=== PATIENT | female | born 1945 | race Caucasian/White ===

== ENCOUNTER 2018-07-08 07:30 | Day surgery (SDC) | payer OTHER ==
[2018-07-08] MEDS ORDERED: CYCLOPENTOLATE 1% OPTH 2 ML ONE (08:08)
[2018-07-08] MEDS ORDERED: NA CHLORIDE 0.9% 500 ML ONE (08:08)
[2018-07-08] MEDS: CYCLOPENTOLATE 1% OPTH 2 ML ONE ×2 (08:35→08:40)
[2018-07-08] MEDS: PHENYLEPHRINE 10% OPTH 5ML ONE ×2 (08:35→08:40)
[2018-07-08] MEDS: LIDOCAINE 2% MPF 5 ML VIAL ONE ×2 (08:55→09:09)
[2018-07-08] MEDS: TETRACAINE HCL 0.5% 2ML OPTH ONE ×2 (08:55→09:07)
[2018-07-08] MEDS: BUPIVACAINE 0.25% PF 10 ML VIAL ONE ×2 (08:56→09:09)
[2018-07-08] MEDS ORDERED: PROPOFOL 200 MG/20 ML VIAL IV ONE (08:56)
[2018-07-08] MEDS ORDERED: LIDOCAINE 2% MPF 5 ML VIAL ONE (08:56)
[2018-07-08] MEDS ORDERED: NS 0.9% VIAL 10 ML ONE (09:15)
[2018-07-08] MEDS ORDERED: EPINEPHRINE/PF 1 MG/ML AMP ONE (09:16)
[2018-07-08] MEDS ORDERED: BALANCED SALT IRRIG PLAIN 500 ML BTL IRR ONE (09:16)
[2018-07-08] MEDS ORDERED: DUOVISC 1 KIT OPTH ONE (09:16)
[2018-07-08] MEDS ORDERED: MOXIFLOXACIN HCL 10 DROPS/ML **OR USE OPTH ONE (09:16)
--- NOTE | 2018-07-08 09:53 | P.BOP ---
Preoperative diagnosis: Nuclear sclerotic cataract and regular astigmatism OD Postoperative diagnosis: Same Primary procedure: Phacoemulsification with IOL OD Estimated blood loss: None Anesthesia: Local (Subtenon's infusion with anesthesia for cataract surgery) Complications: None Implants: SA6AT3 +22.5 @ 171 degrees Transferred to: Other (Day surgery) Condition: Good
--- NOTE | 2018-07-08 20:41 | OP ---
Date of Procedure: 07/08/2018 Surgeon: Maddy Lima MD Anesthesiologist: Tasia Horta CRNA and Ethan Gilbert MD. Preoperative Diagnoses: Nuclear sclerotic cataract and regular astigmatism, right eye. Operation Performed: Phacoemulsification with Toric intraocular lens implant, right eye. Anesthesia: Per cataract surgery. Complications: None. Description Of Procedure: In day surgery, the patient was prepped with Betadine and draped. A conju nctival incision was made in the inferior nasal quadrant with Amber scissors. A sub-Tenon block c onsisting of a 1:1 mixture of 2% Xylocaine and 0.25% bupivacaine was placed through the conjunctival incision with a blunt cannula. A Honan balloon was placed over the eye and the patient was transferr ed to the operating room. In the operating room the patient was prepped and draped in the usual sterile fashion for ophthalmic surgery. A lid speculum was placed in the right eye. Two paracentesis sites were made superiorly an d inferiorly in the limbal cornea. Viscoat was placed in the anterior chamber and a crescent blade w as used to make a corneal groove and tunnel, and a keratome was used to enter the anterior chamber. Provisc was placed in the anterior chamber and a 360 degree capsulotomy was performed with a cystitom e. The lens was hydrodissected with BSS and rotated freely. The lens was removed with a stop and ch op technique. 13.97 Phaco CDE was used to remove the lens. Residual cortex was removed with the irr igation and aspiration. Provisc was placed in the capsular bag. A SA6AT3 +22.5 at 171 degrees lens was placed in the capsular bag without complications. Irrigation and aspiration was used to remove r esidual viscoelastic. The paracentesis sites were hydrated with BSS. The wound and paracentesis sit es were inspected and found to be watertight. Vigamox 0.07 cc was placed intracamerally at the end o f the procedure. The eye was irrigated with balanced salt solution. The eye was patched with a soft cotton patch and Franz metal shield. The patient was returned to day surgery in good condition. Comments: Discharge Instructions: Ms. Gracia is discharged to home in good condition and is to follow up with Dr. Lima in the morning. CORNEL/MODL Voice ID: [id number] Report ID: [id number]
== END 2018-07-08 10:31 | disposition home or self-care (01) ==
LOC: OR 07:30
PROVIDERS: ATTEND Ophthalmology Retina Specialist
PROC: 08RJ3JZ Replacement of Right Lens with Synthetic Substitute, Percutaneous Approach (ICD-10-PCS; principal; 2018-07-08 09:00)
DX: H25.11 Age-related nuclear cataract, right eye (principal); H52.221 Regular astigmatism, right eye; M19.90 Unspecified osteoarthritis, unspecified site; Z88.0 Allergy status to penicillin; Z88.2 Allergy status to sulfonamides; Z83.511 Family history of glaucoma
CPT/HCPCS: 66984; J2704; J0171; V2630; V2787

== ENCOUNTER 2018-10-21 09:55 | Day surgery (SDC) | payer OTHER ==
[2018-10-21] MEDS: CYCLOPENTOLATE 1% OPTH 2 ML ONE ×3 (10:34→10:46)
[2018-10-21] MEDS ORDERED: BALANCED SALT IRRIG PLAIN 500 ML BTL IRR ONE (10:34)
[2018-10-21] MEDS: PHENYLEPHRINE 10% OPTH 5ML ONE ×3 (10:34→10:46)
[2018-10-21] MEDS ORDERED: EPINEPHRINE/PF 1 MG/ML AMP ONE (10:34)
[2018-10-21] MEDS ORDERED: NS 0.9% VIAL 10 ML ONE (10:34)
[2018-10-21] MEDS ORDERED: DUOVISC 1 KIT OPTH ONE (10:34)
[2018-10-21] MEDS ORDERED: MOXIFLOXACIN HCL 10 DROPS/ML **OR USE OPTH ONE (10:35)
[2018-10-21] MEDS ORDERED: LIDOCAINE 1% MPF 2 ML AMPULE ONE (10:35)
[2018-10-21] MEDS ORDERED: LIDOCAINE 2% MPF 5 ML VIAL ONE (10:41)
[2018-10-21] MEDS ORDERED: TETRACAINE HCL 0.5% 4ML OPTH ONE (10:42)
[2018-10-21] MEDS ORDERED: BUPIVACAINE 0.25% PF 10 ML VIAL ONE (10:42)
[2018-10-21] MEDS ORDERED: LIDOCAINE HCL/PF 3.5% OPTH GEL ONE (10:42)
[2018-10-21] MEDS ORDERED: NA CHLORIDE 0.9% 500 ML ONE (10:42)
[2018-10-21] MEDS ORDERED: MIDAZOLAM HCL 2 MG/2 ML INJ ONE ×2 (11:07→11:48)
--- NOTE | 2018-10-21 12:04 | P.BOP ---
Preoperative diagnosis: Nuclear sclerotic cataract OS Postoperative diagnosis: Same Primary procedure: Phacoemulsification with IOL OS Estimated blood loss: None Anesthesia: Local (Topical with anesthesia for cataract surgery) Complications: None Implants: SA60WF +23.5 Transferred to: Other (Day surgery) Condition: Good
--- NOTE | 2018-10-21 22:25 | OP ---
Date of Procedure: 10/21/2018 Surgeon: Maddy Lima MD Anesthesiologist: Tasia Horta CRNA; Brunilda Lu CRNA; and Jim De Leon MD. Preoperative Diagnosis: Nuclear sclerotic cataract, left eye. Operation Performed: Phacoemulsification with intraocular lens implant, left eye. Anesthesia: Per cataract surgery. Complications: None. Description Of Procedure: In the operating room the patient was prepped and draped in the usual ster ile fashion for ophthalmic surgery. A lid speculum was placed in the left eye. Two paracentesis sit es were made superiorly and inferiorly in the limbal cornea. Viscoat was placed in the anterior lauryn babak and a crescent blade was used to make a corneal groove and tunnel, and a keratome was used to ent er the anterior chamber. Provisc was placed in the anterior chamber and a 360 degree capsulotomy was performed with a cystitome. The lens was hydrodissected with BSS and rotated freely. The lens was removed with a stop and chop technique. 20.54 phaco CDE was used to remove the lens. Residual luis alberto x was removed with the irrigation and aspiration. Provisc was placed in the capsular bag. A SA60WF +23.5 lens was placed in the capsular bag without complications. Irrigation and aspiration were used to remove residual viscoelastic. The paracentesis sites were hydrated with BSS. The wound and para centesis sites were inspected and found to be watertight. Vigamox 0.07 cc was placed intracamerally at the end of the procedure. The eye was irrigated with balanced salt solution. The eye was patched with a soft cotton patch and Franz metal shield. The patient was returned to day surgery in good condition. Comments: Akten was placed in the eye in Day Surgery and irrigated out of the eye with BSS in the OR . Preservative-free 1% lidocaine was placed in the anterior chamber prior to Viscoat. Discharge Instructions: Ms. Gracia is discharged to home in good condition. She is to follow up [facility] Dr. Lima in the morning. CORNEL/PIERCE Voice ID: [id number] Report ID: [id number]
== END 2018-10-21 12:33 | disposition home or self-care (01) ==
LOC: OR 09:55
PROVIDERS: ATTEND Ophthalmology Retina Specialist
PROC: 08RK3JZ Replacement of Left Lens with Synthetic Substitute, Percutaneous Approach (ICD-10-PCS; principal; 2018-10-21 10:30)
DX: H25.12 Age-related nuclear cataract, left eye (principal); I10 Essential (primary) hypertension; M19.90 Unspecified osteoarthritis, unspecified site; Z79.899 Other long term (current) drug therapy
CPT/HCPCS: 66984; J0171; J2250 ×2; J2001

== ENCOUNTER 2020-06-06 11:22 | Emergency (ER) | payer OTHER ==
--- OUTSIDE RECORDS SUMMARY | 2020-06-06 11:25 | XMS REPORT | Continuity of Care Document ---
:1945 Author Organization [facility] t Address [address] [place] [address] Care Team Providers Name Role Phone Unavailable Unavailable Unavailable Payers Payer Name Policy Type Policy Number Effective Date Expiration Date S ource Problems This patient has no known problems. Allergies, Adverse Reactions, Alerts Allergy Allergy Status Severity Reaction(s) Onset Inactive Treating Comm ents Source Name Type Date Date Clinician [place] DA Active U 2010- [facility] No Known DA Active U 2005-0 [facility] Contrast 10-12 [place] [facility] 00:[facility] No Known DA Active U 2005-0 [facility] Food 10-12 [place] [facility] 00:[facility]: [facility] No Known DA Active U 2005-0 [facility] Other 10-12 [place] [facility] 00:[facility]: [facility] PENICILL DA Active U 2005-0 [facility] IN 10-12 [place] 00:[facility] SULFA DA Active U 2005-0 [facility] DRUGS 10-12 [place] 00:00: [facility] Medications This patient has no known medications. Procedures This patient has no known procedures. Results Test Description Test Time Test Comments Results Result [facility] e Comments - MRI L-SPINE W/O 2019-03-20 Patient Name: CONT 06:53:00 MADINA MERIDA Unit No: [id number] EXAMS: CPT CODE: [id number] MRI L-SPINE W/O CONT 92511 TECHNIQUE: Multiplanar, multisequence MRI examination performed of the lumbar spine without intravenous contrast material. COMPARISON: None available. FINDINGS: Five lumbar type vertebra are assumed. Alignment: No significant listhesis. Bone Lesion: Degenerative marrow signal is noted at the L2-L3 and L3-L4 levels. Fracture: None present. Paraspinal Soft Tissues: Unremarkable. Conus Medullaris: Termination at L1-L2 level. Morphology is normal. L1/2: Disc desiccation without significant bulge or herniation. No foraminal or central canal stenosis. L2/3: Advanced disc degeneration with endplate marrow changes and left asymmetric disc bulge. Facet hypertrophy and ligamentum flavum thickening contribute to moderate central canal stenosis. Mild bilateral foraminal narrowing. L3/4: Marked disc degeneration with endplate marrow changes and broad disc bulge. Moderate bilateral facet hypertrophy. There is moderate central canal stenosis as well as mild bilateral foraminal narrowing. L4/5: Disc degeneration and diffuse bulge. Facet hypertrophy and ligamentum flavum thickening contribute to mild to moderate central canal stenosis. Mild bilateral foraminal stenosis. L5/S1: Large left asymmetric disc bulge is noted as well as moderate facet hypertrophy and ligamentum flavum thickening. There is mild central canal stenosis as well as moderate to severe left, moderate right foraminal stenosis. IMPRESSION: Advanced multilevel lumbar spondylosis with moderate central canal stenosis at L2-L3 and L3-L4. at 0653 Reported and signed by: Corey Nair M.D. CC: Mariya Santos M.D. Technologist: Tien Arora(R) Transcribed D/ ([id number]) [facility] [address] [facility] PHYS: Alfonzo Villalobos MD : 1945 AGE: 74 SEX: F [place], [place] [address] LOC: Y.MRI PHONE #: [phone] EXAM DATE: 03/19/2019 STATUS: DEP CLI FAX #: [phone] RAD #: D/C DT PAGE 1 Signed Report Patient Name: MADINA MERIDA Unit No: [id number] EXAMS: CPT CODE: [id number] MRI L-SPINE W/O CONT 31363 <Continued> Orig Print D/T: S: 03/20/2019 ([id number]) [place] [facility] NAME: MADINA MERIDA [address] [facility] PHYS: Alfonzo Villalobos MD : 1945 AGE: 74 SEX: F [place], [place] [address] LOC: Y.MRI PHONE #: [phone] EXAM DATE: 03/19/2019 STATUS: DEP CLI FAX #: [phone] RAD #: D/C DT PAGE 2 Signed Report
[2020-06-06 12:22] LABS: Absolute Lymphocytes (CBC) 1.9 K/uL (0.7-4.9); Basophils % 1.1 % (0-1.3); Hematocrit 38.5 % (36.0-45.0); Lymphocytes % 17.6 % (15.3-44.8); MPV 8.8 fL (7.6-11.3); RBC Red Blood Cell Count 4.08 M/uL (3.86-4.86)
[2020-06-06] MEDS ORDERED: ADENOSINE 6 MG/ 2ML VIAL IV PRN (12:22)
[2020-06-06 12:35] LABS: BUN Blood Urea Nitrogen 20 mg/dL (7-18); Bicarbonate 23 mmol/L (21-32); Glucose Level 141 mg/dL (74-106); Magnesium 2.1 mg/dL (1.8-2.4); Sodium Level 135 mmol/L (136-145)
[2020-06-06] MEDS ORDERED: NA CHLORIDE 0.9% 1,000 ML ONE (12:39)
--- NOTE | 2020-06-06 13:59 | EDPHYS ---
Physician Documentation [facility] Name: Suzie Gracia Age: 75 yrs Sex: Female : 1945 Arrival Date: 06/06/2020 Time: 11:23 Bed 20 Private MD: ED Physician Jensen Barragan HPI: 06/06 13:00 This 75 yrs old Female presents to ER via Ambulatory with complaints of svt. rn 13:00 The patient presents with a history of heart racing. Context: The symptoms occur at rn rest. Onset: The symptoms/episode began/occurred last night. Duration: The patient or guardian reports a single episode. Modifying factors: The symptoms are aggravated by nothing. The symptoms are alleviated by nothing. Severity of symptoms: At their worst the symptoms were moderate in the emergency department the symptoms are unchanged. The patient has experienced similar episodes in the past. Reports multiple episodes of SVT, has required conversion with adenosine once before, other times able to convert or slow down with metoprolol, took multiple doses of metoprolol yesterday and today without help, then BP started to drop, came in to try and reset. No chest pain/sob/syncope. . Historical: - Allergies: 11:42 Penicillins; ca1 11:42 Sulfa (Sulfonamide Antibiotics); ca1 - Home Meds: 11:42 metoprolol tartrate 50 mg Oral tab [Active]; metoprolol succinate 100 mg oral Tb24 1 ca1 tab once daily [Active]; - PMHx: 11:42 SVT; Hypertension; ca1 - PSHx: 11:42 ; ca1 - Immunization history:: Pneumococcal vaccine is up to date, Flu vaccine is up to date. - Social history:: Smoking status: Patient denies any tobacco usage or history of. - Family history:: not pertinent. - Hospitalizations: : No recent hospitalization is reported. ROS: 13:00 Constitutional: Negative for fever, chills, and weight loss, Eyes: Negative for injury, rn pain, redness, and discharge, Neck: Negative for injury, pain, and swelling, Cardiovascular: Negative for chest pain, and edema, Respiratory: Negative for shortness of breath, cough, wheezing, and pleuritic chest pain, Abdomen/GI: Negative for abdominal pain, nausea, vomiting, diarrhea, and constipation, Back: Negative for injury and pain, MS/Extremity: Negative for injury and deformity, Skin: Negative for injury, rash, and discoloration, Neuro: Negative for headache, weakness, numbness, tingling, and seizure. Exam: 13:00 Constitutional: This is a well developed, well nourished patient who is awake, alert, rn and in no acute distress. Head/Face: Normocephalic, atraumatic. Cardiovascular: Tachycardic, regular Respiratory: No increased work of breathing, no retractions or nasal flaring. Abdomen/GI: soft, non-tender Skin: Warm, dry MS/ Extremity: Pulses equal, no cyanosis. Neurovascular intact. Full, normal range of motion. Equal circumference. Neuro: Awake and alert, GCS 15 Vital Signs: 11:38 BP 114 / 88; Pulse 130; Resp 16 S; Temp 98(TE); Pulse Ox 100% on R/A; Weight 72.57 kg ca1 (R); Height 5 ft. 6 in. (167.64 cm) (R); Pain 0/10; 13:15 BP 127 / 56; Pulse 60; Resp 14 S; Pulse Ox 97% on R/A; jd3 14:12 BP 117 / 62; Pulse 57; Resp 20 S; Pulse Ox 99% on R/A; jd3 11:38 Body Mass Index 25.82 (72.57 kg, 167.64 cm) ca1 MDM: 11:50 Patient medically screened. rn 12:54 ED course: Adenosine 6mg given for SVT, converted back to sinus rhythm, will load with rn magnesium and continue to monitor. . 13:55 Differential diagnosis: arrythmia, dehydration. Data reviewed: vital signs, nurses rn notes, lab test result(s), EKG, and as a result, I will discharge patient. Counseling: I had a detailed discussion with the patient and/or guardian regarding: the historical points, exam findings, and any diagnostic results supporting the discharge/admit diagnosis, lab results, the need for outpatient follow up, to return to the emergency department if symptoms worsen or persist or if there are any questions or concerns that arise at home. Response to treatment: the patient's symptoms have resolved after treatment, the patient's condition has returned to base line, the patient is now symptom free, and as a result, I will discharge patient. Special discussion: I discussed with the patient/guardian in detail that at this point there is no indication for admission to the hospital. It is understood, however, that if the symptoms persist or worsen the patient needs to return immediately for re-evaluation. ED course: Remains in sinus rhythm, loaded with magnesium, will dc home with recommended f/u with cardiology/EP. . 06/06 12:02 Order name: CBC with Diff rn 06/06 12:02 Order name: Basic Metabolic Panel rn 06/06 12:02 Order name: Magnesium rn 06/06 12:02 Order name: CBC with Automated Diff; Complete Time: 12:49 EDMS 06/06 12:02 Order name: Basic Metabolic Panel; Complete Time: 12:49 EDMS 06/06 12:03 Order name: Magnesium; Complete Time: 12:49 EDNH 06/06 11:43 Order name: EKG; Complete Time: 11:44 ca1 06/06 11:43 Order name: EKG - Nurse/Tech; Complete Time: 11:43 ca1 06/06 12:02 Order name: IV Start; Complete Time: 12:19 rn Administered Medications: 12:46 Drug: NS 0.9% 1000 ml Route: IV; Rate: 1 bolus; Site: right antecubital; jd3 13:40 Follow up: Response: No adverse reaction; IV Status: Order to discontinue infusion; IV jd3 Intake: 250ml 12:47 Drug: Adenosine 6 mg Route: IVP; Site: right antecubital; jd3 13:00 Follow up: Response: No adverse reaction; Marked relief of symptoms; Cardiac rhythm jd3 changed 13:37 Drug: Magnesium Sulfate 1 grams Route: IVPB; Infused Over: 1 hrs; Site: left forearm; jd3 14:35 Follow up: Response: No adverse reaction; IV Status: Completed infusion jd3 Disposition: 06/06/20 13:58 Discharged to Home. Impression: Supraventricular tachycardia. - Condition is Stable. - Discharge Instructions: Paroxysmal Supraventricular Tachycardia. - Medication Reconciliation Form, Thank You Letter, Antibiotic Education, Prescription Opioid Use form. - Follow up: Private Physician; When: As needed; Reason: Recheck today's complaints, Re-evaluation by your physician. - Problem is an acute exacerbation. - Symptoms have improved. Signatures: Dispatcher [employer] EDJensen Padilla MD MD rn Davies, Jonathon, RN RN jd3 Zeny Cunha RN RN ca1 Corrections: (The following items were deleted from the chart) 14:46 13:58 06/06/2020 13:58 Discharged to Home. Impression: Supraventricular tachycardia. jd3 Condition is Stable. Forms are Medication Reconciliation Form, Thank You Letter, Antibiotic Education, Prescription Opioid Use. Follow up: Private Physician; When: As needed; Reason: Recheck today's complaints, Re-evaluation by your physician. Problem is an acute exacerbation. Symptoms have improved. rn
--- NOTE | 2020-06-06 13:59 | ER ---
Nurse's Notes [facility] Name: Suzie Gracia Age: 75 yrs Sex: Female : 1945 Arrival Date: 06/06/2020 Time: 11:23 Bed 20 Private MD: Diagnosis: Supraventricular tachycardia Presentation: 06/06 11:38 Chief complaint: Patient states: Increased HR since last night at 1999, took meds for ca1 it, no relief.. Last episode was 04/07/2020, lasted only 2 - 3 hours and has medication for SVT. This time it just lasts until now. Reports feeling tired. Coronavirus screen: Client denies travel out of the [place] in the last 14 days. At this time, the client does not indicate any symptoms associated with coronavirus-19. Ebola Screen: Patient negative for fever greater than or equal to 101.5 degrees Fahrenheit, and additional compatible Ebola Virus Disease symptoms Patient denies exposure to infectious person. Patient denies travel to an Ebola-affected area in the 21 days before illness onset. No symptoms or risks identified at this time. Initial Sepsis Screen: Does the patient meet any 2 criteria? No. Patient's initial sepsis screen is negative. Does the patient have a suspected source of infection? No. Patient's initial sepsis screen is negative. Risk Assessment: Do you want to hurt yourself or someone else? Patient reports no desire to harm self or others. Onset of symptoms was June 05, 2020 at 20:00. 11:38 Method Of Arrival: Ambulatory ca1 11:38 Acuity: DWIGHT 2 ca1 Historical: - Allergies: 11:42 Penicillins; ca1 11:42 Sulfa (Sulfonamide Antibiotics); ca1 - Home Meds: 11:42 metoprolol tartrate 50 mg Oral tab [Active]; metoprolol succinate 100 mg oral Tb24 1 ca1 tab once daily [Active]; - PMHx: 11:42 SVT; Hypertension; ca1 - PSHx: 11:42 ; ca1 - Immunization history:: Pneumococcal vaccine is up to date, Flu vaccine is up to date. - Social history:: Smoking status: Patient denies any tobacco usage or history of. - Family history:: not pertinent. - Hospitalizations: : No recent hospitalization is reported. Screenin:28 Abuse screen: Denies threats or abuse. Nutritional screening: No deficits noted. jd3 Tuberculosis screening: No symptoms or risk factors identified. Fall Risk Ambulatory Aid- None/Bed Rest/Nurse Assist (0 pts). Gait- Normal/Bed Rest/Wheelchair (0 pts) Mental Status- Oriented to own ability (0 pts). Total Weaver Fall Scale indicates No Risk (0-24 pts). Assessment: 12:25 General: Appears comfortable, Behavior is calm, cooperative, appropriate for age, jd3 anxious. Pain: Complains of pain in chest Quality of pain is described as pressure. Neuro: Level of Consciousness is awake, alert, obeys commands, Oriented to person, place, time, situation. 12:25 Cardiovascular: Capillary refill < 3 seconds Patient's skin is warm and dry. Rhythm is jd3 irregular. Respiratory: Airway is patent Respiratory effort is even, unlabored, Respiratory pattern is regular, symmetrical, Denies cough, shortness of breath. GI: No signs and/or symptoms were reported involving the gastrointestinal system. : No signs and/or symptoms were reported regarding the genitourinary system. EENT: No signs and/or symptoms were reported regarding the EENT system. Derm: Skin is intact, Skin is dry, Skin is normal, Skin temperature is warm. Musculoskeletal: Circulation, motion, and sensation intact. Range of motion: intact in all extremities. 13:15 Reassessment: Patient appears in no apparent distress at this time. Patient and/or jd3 family updated on plan of care and expected duration. Pain level reassessed. Patient is alert, oriented x 3, equal unlabored respirations, skin warm/dry/pink. Patient states feeling better. 14:11 Reassessment: Patient appears in no apparent distress at this time. Patient and/or jd3 family updated on plan of care and expected duration. Pain level reassessed. Patient is alert, oriented x 3, equal unlabored respirations, skin warm/dry/pink. Patient states feeling better. Vital Signs: 11:38 BP 114 / 88; Pulse 130; Resp 16 S; Temp 98(TE); Pulse Ox 100% on R/A; Weight 72.57 kg ca1 (R); Height 5 ft. 6 in. (167.64 cm) (R); Pain 0/10; 13:15 BP 127 / 56; Pulse 60; Resp 14 S; Pulse Ox 97% on R/A; jd3 14:12 BP 117 / 62; Pulse 57; Resp 20 S; Pulse Ox 99% on R/A; jd3 11:38 Body Mass Index 25.82 (72.57 kg, 167.64 cm) ca1 ED Course: 11:23 Patient arrived in ED. as 11:40 Triage completed. ca1 11:42 Arm band placed on right wrist. ca1 11:50 Jensen Barragan MD is Attending Physician. rn 12:05 Anand Lombardo RN is Primary Nurse. jd3 12:20 Inserted saline lock: 20 gauge in left forearm, using aseptic technique. Blood jd3 collected. 12:30 Inserted saline lock: 20 gauge in right antecubital area, using aseptic technique. jd3 13:51 Magnesium Sent. mh5 13:51 Basic Metabolic Panel Sent. mh5 13:52 CBC with Diff Sent. mh5 14:28 Patient has correct armband on for positive identification. Placed in gown. Bed in low jd3 position. Call light in reach. Side rails up X2. utility engineer on. Pulse ox on. NIBP on. 14:41 No provider procedures requiring assistance completed. IV discontinued, intact, jd3 bleeding controlled, No redness/swelling at site. Pressure dressing applied. Administered Medications: 12:46 Drug: NS 0.9% 1000 ml Route: IV; Rate: 1 bolus; Site: right antecubital; jd3 13:40 Follow up: Response: No adverse reaction; IV Status: Order to discontinue infusion; IV jd3 Intake: 250ml 12:47 Drug: Adenosine 6 mg Route: IVP; Site: right antecubital; jd3 13:00 Follow up: Response: No adverse reaction; Marked relief of symptoms; Cardiac rhythm jd3 changed 13:37 Drug: Magnesium Sulfate 1 grams Route: IVPB; Infused Over: 1 hrs; Site: left forearm; jd3 14:35 Follow up: Response: No adverse reaction; IV Status: Completed infusion jd3 Intake: 13:40 IV: 250ml; Total: 250ml. jd3 Outcome: 13:58 Discharge ordered by . rn 14:41 Discharged to home ambulatory, with family. jd3 14:41 Condition: stable 14:41 Discharge instructions given to patient, Instructed on discharge instructions, follow up and referral plans. Demonstrated understanding of instructions, follow-up care. 14:46 Patient left the ED. jd3 Signatures: Marlin Hackett Roman, MD MD rn Martinez, [facility] Anand Lombardo RN RN jd3 Zeny Cunha RN RN ca1
[2020-06-06] MEDS ORDERED: MAGNESIUM SULFATE 1 gm IVPB 1 GM/100 ML BAG IV ONE (14:00)
[2020-06-06 14:51] VITALS: TEMP 98
[2020-06-06 14:54] VITALS: BP 117/62; O2SAT 99
== END 2020-06-06 14:46 | disposition home or self-care (01) ==
LOC: ER 11:22
DX: I47.1 Supraventricular tachycardia (principal); I10 Essential (primary) hypertension; Z88.0 Allergy status to penicillin; Z88.2 Allergy status to sulfonamides
CPT/HCPCS: 96365; 96361; 93005 ×3; 85025; 80048; 36415; 83735; 96375; 99285; J0153; J3475; J7030

== ENCOUNTER 2020-07-21 20:08 | Emergency (ER) | payer OTHER ==
--- NOTE | 2020-07-21 20:53 | RAD REPORT ---
EXAM DESCRIPTION: RAD - Chest Single View - 07/21/2020 8:38 pm CLINICAL HISTORY: ta chycardia, hypertension COMPARISON: May 11, 2020 TECHNIQUE: AP portable chest image was obtained 07/21/2020 8:38 pm . FINDINGS: No focal mass or consolidation. Chronic interstitial opacification is present not substant ially different when adjusting for technique differences. Severity of chronic disease could mask regina y edema or infiltrate. Heart and vasculature are normal. No measurable pleural effusion and no pneumothorax. No acute bony abnormality seen. No acute aortic findings suspected. IMPRESSION: Chronic interstitial lung disease not substantially different from comparison. Severity chronic disease could mask early edema or infiltrate.
[2020-07-21] MEDS ORDERED: METOPROLOL TARTRATE 5 MG/5 ML INJ IV ONE (20:55)
[2020-07-21 21:00] LABS: Absolute Lymphocytes (CBC) 1.9 K/uL (0.7-4.9); Basophils % 0.5 % (0-1.3); Hematocrit 38.6 % (36.0-45.0); Lymphocytes % 17.8 % (15.3-44.8); RBC Red Blood Cell Count 4.18 M/uL (3.86-4.86)
[2020-07-21 21:01] LABS: Protime INR 1.07
[2020-07-21] MEDS ORDERED: NA CHLORIDE 0.9% 1,000 ML ONE ×2 (21:02→22:03)
[2020-07-21 21:14] LABS: ALT/SGPT 26 U/L (12-78); AST/SGOT 19 U/L (15-37); Albumin 3.9 g/dL (3.4-5.0); Alkaline Phosphatase 82 U/L (45-117); BUN Blood Urea Nitrogen 17 mg/dL (7-18); Bicarbonate 23 mmol/L (21-32); Bilirubin Direct 0.2 mg/dL (0-0.2); Bilirubin Total 0.5 mg/dL (0.2-1.0); Glucose Level 132 mg/dL (74-106); Magnesium 2.2 mg/dL (1.8-2.4); NT PRO-BNP 480 pg/mL (<450); Potassium 3.9 mmol/L (3.5-5.1); Protein, Total 7.4 g/dL (6.4-8.2); Sodium Level 137 mmol/L (136-145); Troponin (Emerg Dept Use Only) < 0.02 ng/mL (0.0-0.045)
[2020-07-21] MEDS ORDERED: ADENOSINE 6 MG/ 2ML VIAL IV ONE (22:02)
--- NOTE | 2020-07-21 23:04 | EDPHYS ---
Physician Documentation [facility] Name: Suzie Gracia Age: 75 yrs Sex: Female : 1945 Arrival Date: 07/21/2020 Time: 20:12 Bed 14 Private MD: ED Physician Juan Castillo HPI: 07/21 20:24 This 75 yrs old Female presents to ER via Ambulatory with complaints of jmm ELEVATED HEART RATE. 20:24 The patient presents with a history of heart racing. Onset: The symptoms/episode jmm began/occurred today. Duration: The patient or guardian reports a single episode, that is still ongoing. Modifying factors: The symptoms are aggravated by nothing. The symptoms are alleviated by nothing. Associated signs and symptoms: Pertinent negatives: chest pain, SOB. This is a 75 year old female with a history of htn, SVT that presents to the ED with complaints of rapid heart beath. patient took 100 mg of metoprolol er this morning and 150 mg this evening. Denies chest pain or shortness of breath. . Historical: - Allergies: 20:31 PENICILLINS; ca1 20:31 Sulfa (Sulfonamide Antibiotics); ca1 - Home Meds: 20:31 metoprolol succinate 100 mg Oral Tb24 1 tab once daily [Active]; metoprolol tartrate 50 ca1 mg Oral tab [Active]; - PMHx: 20:31 Hypertension; SVT; ca1 - PSHx: 20:31 ; ca1 - Immunization history:: Client reports receiving the 2nd dose of the Covid vaccine, Client reports receiving the 1st dose of the Covid vaccine, Pneumococcal vaccine is up to date, Flu vaccine is up to date. - Social history:: Smoking status: Patient denies any tobacco usage or history of. ROS: 20:24 Constitutional: Negative for fever, chills, and weight loss. jmm 20:24 Respiratory: Negative for shortness of breath, cough, wheezing, and pleuritic chest pain, Abdomen/GI: Negative for abdominal pain, nausea, vomiting, diarrhea, and constipation, Neuro: Negative for headache, weakness, numbness, tingling, and seizure. 20:24 Cardiovascular: Positive for palpitations. 20:24 All other systems are negative. Exam: 20:24 Constitutional: This is a well developed, well nourished patient who is awake, alert, jmm and in no acute distress. Head/Face: atraumatic. Eyes: EOMI, no conjunctival erythema appreciated ENT: Moist Mucus Membranes Neck: Trachea midline, Supple Chest/axilla: Normal chest wall appearance and motion. 20:24 Respiratory: Normal respirations, no respiratory distress appreciated Abdomen/GI: Non distended, soft Back: Normal ROM Skin: General appearance color normal MS/ Extremity: Moves all extremities, no obvious deformities appreciated, no edema noted to the lower extremities Neuro: Awake and alert, normal gait Psych: Behavior is normal, Mood is normal, Patient is cooperative and pleasant 20:24 Cardiovascular: Rate: tachycardic, Rhythm: regular. Vital Signs: 20:13 BP 122 / 84; Pulse 133; Resp 18 S; Temp 97.6(TE); Pulse Ox 96% on R/A; Weight 72.57 kg ca1 (R); Height 5 ft. 6 in. (167.64 cm) (R); Pain 0/10; 23:10 BP 123 / 65; Pulse 58; Resp 18; Temp 97.8; Pulse Ox 98% ; ea 20:13 Body Mass Index 25.82 (72.57 kg, 167.64 cm) ca1 MDM: 20:31 Patient medically screened. [facility] 23:01 Data reviewed: vital signs, nurses notes. Counseling: I had a detailed discussion with [facility] the patient and/or guardian regarding: the historical points, exam findings, and any diagnostic results supporting the discharge/admit diagnosis, lab results, radiology results, the need for further work-up and treatment in the hospital. Refusal of service: The patient/guardian displays adequate decision making capability and despite a detailed discussion of alternatives, benefits, risks, and consequences refuses: Admission to the hospital for further work-up and treatment. ED course: I discussed the patient with Dr. Hearn whom evaluated the EKG. Patient was administered adenosine with cardioversion. Patient has remained at a normal rate since initial administration. Due to the 3rd need for cardioversion I recommended observation. Patient declined. . 07/21 20:24 Order name: Basic Metabolic Panel [facility] 07/21 20:24 Order name: CBC with Diff [facility] 07/21 20:24 Order name: LFT's; Complete Time: 21:22 [facility] 07/21 20:24 Order name: Magnesium; Complete Time: 21:22 [facility] 07/21 20:24 Order name: NT PRO-BNP; Complete Time: 21:22 [facility] 07/21 20:24 Order name: PT-INR; Complete Time: 21:22 [facility] 07/21 20:24 Order name: Troponin (emerg Dept Use Only); Complete Time: 21:22 [facility] 07/21 20:24 Order name: XRAY Chest (1 view); Complete Time: 20:54 [facility] 07/21 20:24 Order name: EKG; Complete Time: 20:24 [facility] 07/21 20:24 Order name: Basic Metabolic Panel; Complete Time: 21:22 [facility] 07/21 20:24 Order name: CBC with Automated Diff; Complete Time: : [facility] 07/21 20:24 Order name: Cardiac monitoring; Complete Time: 20:40 [facility] 07/21 20:24 Order name: EKG - Nurse/Tech; Complete Time: 20:40 [facility] 07/21 20:24 Order name: IV Saline Lock; Complete Time: 20:40 [facility] 07/21 20:24 Order name: Labs collected and sent; Complete Time: 20:40 [facility] 07/21 20:24 Order name: O2 Per Protocol; Complete Time: 20:40 [facility] 07/21 20:24 Order name: O2 Sat Monitoring; Complete Time: 20:40 jm Administered Medications: 20:00 Drug: NS 0.9% 1000 ml Route: IV; Rate: 1 bolus; Site: right wrist; ea 20:36 Drug: Lopressor 5 mg Route: IVP; Site: right wrist; ea 23:18 Follow up: Response: No adverse reaction ea 21:50 Drug: Adenocard (adenosine) 6 mg Route: IVP; Site: right forearm; ea 23:18 Follow up: Response: No adverse reaction ea Disposition: 07/22 08:18 Co-signature as Attending Physician, Juan Castillo MD. pksara Disposition: 07/21/20 23:03 Discharged to Home. Impression: Supraventricular tachycardia. - Condition is Stable. - Discharge Instructions: Paroxysmal Supraventricular Tachycardia. - Medication Reconciliation Form, Thank You Letter, Antibiotic Education, Prescription Opioid Use form. - Follow up: Private Physician; When: 2 - 3 days; Reason: Recheck today's complaints, Continuance of care, Re-evaluation by your physician. Signatures: Dispatcher [employer] EDJuan Valladares MD MD pkl Mickail, Joel, PA PA jmm Antunez, Elena, Zeny Garcia RN, ea, RN RN ca1 Corrections: (The following items were deleted from the chart) 07/21 23:18 23:03 07/21/2020 23:03 Discharged to Home. Impression: Supraventricular tachycardia. ea Condition is Stable. Forms are Medication Reconciliation Form, Thank You Letter, Antibiotic Education, Prescription Opioid Use. Follow up: Private Physician; When: 2 - 3 days; Reason: Recheck today's complaints, Continuance of care, Re-evaluation by your physician. erin
--- NOTE | 2020-07-21 23:04 | ER ---
Nurse's Notes [facility] Name: Suzie Gracia Age: 75 yrs Sex: Female : 1945 Arrival Date: 07/21/2020 Time: 20:12 Bed 14 Private MD: Diagnosis: Supraventricular tachycardia Presentation: 07/21 20:13 Chief complaint: Patient states: HX of SVT taking Metoprolol Succinate 100 mg in the ca1 morning. Noticed HR at 1406 at 1700 today. Took Metoprolol Tartrate 50mg x 2 at 1715, HR still at 140s, took another Metoprolol Tartrate 50 mg x 1 at 1800. HR still high at 130s and BP went down to SBP 80s. Reports feeling tired and sleepy at this time. Reports lightheaded when BP was low, not at this time. Denies chest pain, denies SOB. Coronavirus screen: Client denies travel out of the [place] in the last 14 days. At this time, the client does not indicate any symptoms associated with coronavirus-19. Ebola Screen: Patient negative for fever greater than or equal to 101.5 degrees Fahrenheit, and additional compatible Ebola Virus Disease symptoms Patient denies exposure to infectious person. Patient denies travel to an Ebola-affected area in the 21 days before illness onset. No symptoms or risks identified at this time. Initial Sepsis Screen: Does the patient meet any 2 criteria? No. Patient's initial sepsis screen is negative. Does the patient have a suspected source of infection? No. Patient's initial sepsis screen is negative. Risk Assessment: Do you want to hurt yourself or someone else? Patient reports no desire to harm self or others. Onset of symptoms was July 21, 2020. 20:13 Method Of Arrival: Ambulatory ca1 20:13 Acuity: DWIGHT 2 ca1 Historical: - Allergies: 20:31 PENICILLINS; ca1 20:31 Sulfa (Sulfonamide Antibiotics); ca1 - Home Meds: 20:31 metoprolol succinate 100 mg Oral Tb24 1 tab once daily [Active]; metoprolol tartrate 50 ca1 mg Oral tab [Active]; - PMHx: 20:31 Hypertension; SVT; ca1 - PSHx: 20:31 ; ca1 - Immunization history:: Client reports receiving the 2nd dose of the Covid vaccine, Client reports receiving the 1st dose of the Covid vaccine, Pneumococcal vaccine is up to date, Flu vaccine is up to date. - Social history:: Smoking status: Patient denies any tobacco usage or history of. Screenin:48 Abuse screen: Denies threats or abuse. Nutritional screening: No deficits noted. ea Tuberculosis screening: No symptoms or risk factors identified. Fall Risk None identified. Assessment: 20:47 General: Appears uncomfortable, Behavior is appropriate for age. Pain: Denies pain. ea Neuro: Level of Consciousness is awake, alert, obeys commands, Oriented to person, place, time. Cardiovascular: Patient's skin is warm and dry. Respiratory: Airway is patent Respiratory effort is even, unlabored, Respiratory pattern is regular, symmetrical. Derm: Skin is dry, Skin is pale, Skin temperature is warm. 23:16 Reassessment: Patient and/or family updated on plan of care and expected duration. Pain ea level reassessed. Patient is alert, oriented x 3, equal unlabored respirations, skin warm/dry/pink. Discharge instruction give to patient verbalized the understanding of instruction. pt left ED ambulatory tolerating well. Vital Signs: 20:13 BP 122 / 84; Pulse 133; Resp 18 S; Temp 97.6(TE); Pulse Ox 96% on R/A; Weight 72.57 kg ca1 (R); Height 5 ft. 6 in. (167.64 cm) (R); Pain 0/10; 23:10 BP 123 / 65; Pulse 58; Resp 18; Temp 97.8; Pulse Ox 98% ; ea 20:13 Body Mass Index 25.82 (72.57 kg, 167.64 cm) ca1 ED Course: 20:12 Patient arrived in ED. am4 20:23 Aaron Segura PA is PHCP. jmm 20:23 Juan Castillo MD is Attending Physician. jmm 20:30 Triage completed. ca1 20:31 Arm band placed on right wrist. ca1 20:35 Halina Mcintosh, KIMBERLY is Primary Nurse. ea 20:38 XRAY Chest (1 view) In Process Unspecified. EDMS 20:39 Initial lab(s) drawn, by me, sent to lab. Inserted saline lock: 20 gauge in right ca1 forearm, using aseptic technique. Blood collected. 20:48 Patient has correct armband on for positive identification. Bed in low position. Call ea light in reach. 23:16 No provider procedures requiring assistance completed. IV discontinued, intact, ea bleeding controlled, No redness/swelling at site. Pressure dressing applied. Administered Medications: 20:00 Drug: NS 0.9% 1000 ml Route: IV; Rate: 1 bolus; Site: right wrist; ea 20:36 Drug: Lopressor 5 mg Route: IVP; Site: right wrist; ea 23:18 Follow up: Response: No adverse reaction ea 21:50 Drug: Adenocard (adenosine) 6 mg Route: IVP; Site: right forearm; ea 23:18 Follow up: Response: No adverse reaction ea Outcome: 23:03 Discharge ordered by . erin 23:17 Discharged to home ambulatory, with family. ea 23:17 Condition: stable 23:17 Discharge instructions given to patient, Instructed on discharge instructions, follow up and referral plans. Demonstrated understanding of instructions, follow-up care. 23:18 Patient left the ED. ea Signatures: Dispatcher [employer] EDMS Aaron Segura PA PA jmm Antunez, Elena, RN Zeny Garcia ea RN RN Betzaida Dodson
--- NOTE | 2020-07-22 08:49 | EKG ---
Test Date: 2020-07-21 Test Time: 21:06:25 Visual Effects Editor: KATI MEASUREMENT RESULTS: Intervals: Rate: 130 CO: QRSD: 152 QT: 324 QTc: 476 [place]: P: CO: QRS: -6 T: 17 INTERPRETIVE STATEMENTS: Wide QRS tachycardia Left ventricular hypertrophy with QRS widening Abnormal ECG Compared to ECG 07/21/2020 20:23:21 Left ventricular hypertrophy now present Wide-QRS tachycardia still present Electronically Signed On 07-22-20 08:48:25 CDT by David Hearn
--- NOTE | 2020-07-22 08:49 | EKG ---
Test Date: 2020-07-21 Test Time: 20:23:21 Commissioning Agent: KATI MEASUREMENT RESULTS: Intervals: Rate: 132 AL: QRSD: 152 QT: 316 QTc: 468 [place]: P: AL: QRS: 13 T: -1 INTERPRETIVE STATEMENTS: Wide QRS tachycardia Nonspecific intraventricular block Abnormal ECG Compared to ECG 06/06/2020 12:49:54 Wide-QRS tachycardia now present Sinus rhythm no longer present Electronically Signed On 07-22-20 08:48:26 CDT by David Hearn
[2020-07-22 18:26] VITALS: BP 123/65; TEMP 97.8; O2SAT 98
== END 2020-07-21 23:18 | disposition home or self-care (01) ==
LOC: ER 20:08
DX: I47.1 Supraventricular tachycardia (principal); I10 Essential (primary) hypertension; Z88.0 Allergy status to penicillin; Z88.2 Allergy status to sulfonamides
CPT/HCPCS: 85025; 80048; 36415; 83735; 85610; 80076; 84484; 83880; 71045; J0153; J7030 ×2; 93005; 99284

== ENCOUNTER 2020-07-23 18:30 | Emergency (ER) | payer OTHER ==
--- OUTSIDE RECORDS SUMMARY | 2020-07-23 18:33 | XMS REPORT | Continuity of Care Document ---
:1945 Author Organization [facility] t Address [address] [place] [address] Care Team Providers Name Role Phone Unavailable Unavailable Unavailable Payers Payer Name Policy Type Policy Number Effective Date Expiration Date S ource Problems This patient has no known problems. Allergies, Adverse Reactions, Alerts Allergy Allergy Status Severity Reaction(s) Onset Inactive Treating Comm ents Source Name Type Date Date Clinician [facility] [facility] Active [facility] S[facility] [facility] ([place] 07-22 [place] [facility] 00:[facility]: [facility] Antibiot 00 dic ics) [facility]osp[facility] Penicill DA Active [facility] 08-10 00:[facility] No Known DA Active [facility] Contrast 10-12 [place] [facility]ie 00:00: [facility] No Known DA Active U 2005- [facility] Food 10-12 [place] Allergie 00:00: [facility] No Known DA Active [facility] Other 10-12 [place] [facility]ergie 00:00: [facility] PENICILL DA Active [facility] IN 10-12 [place] 00:00: [facility] SULFA DA Active [facility] DRUGS 10-12 00:00: [facility] Medications This patient has no known medications. Procedures This patient has no known procedures. Results Test Description Test Time Test Comments Results Result [facility] e Comments - XR FLUORO FOR 2020-07-22 SPINE INJ 21:53:00 [facility] : 1945 Sex: F Patient Name: MADINA MERIDA Unit No: [id number] EXAMS: CPT CODE: [id number] XR FLUORO FOR SPINE INJ 74787 THORACIC EPIRADICULAR INJECTION REFERRAL PHYSICIAN: None PREOPERATIVE DIAGNOSIS: Thoracic Radiculitis POSTOPERATIVE DIAGNOSIS: Thoracic radiculitis PROCEDURES PERFORMED: Fluoroscopically guided needle localization of the bilateral C5, bilateral C6 and bilateral T7 spinal nerves with transforaminal epidurograms and epidural steroid injection of local anesthetic and steroid. FINDINGS: Flow was mildly limited in the lateral recess on the right from T6 to T7 but otherwise fairly good flow seen through the epidural space. Provocation with injection was negative. Anesthetic response was positive with the patient noting relief of her thoracic and chest wall pain. Preinjection VAS 8/10. Postinjection VAS 0/10. Steroid response pending follow-up. ESTIMATED BLOOD LOSS: Minimal ANESTHESIA: TIVA COMPLICATIONS: None DETAILS OF PROCEDURE: After obtaining stable vital signs, informed consent and IV access, with no contraindications, the patient was taken to the operating room and placed in prone position with all extremities padded and appropriate monitors placed. The patient was sterilely prepped and draped over the thoracic spine. Using fluoroscopic guidance the insertion sites were marked for paravertebral approaches and using standard technique, a 27 gauge needle was advanced toward each corresponding pedicle base without paresthesias. Isovue-300 contrast 0.5 ml was injected incrementally with digital subtraction to produce each epidurogram. There were no signs of intravascular or intrathecal uptake. Lidocaine 4% 0.5 ml was injected as a test dose at each site and again there were no signs of intravascular or intrathecal uptake. Lidocaine 4% 0.5 ml with Decadron 4 mg was then injected incrementally with frequent negative aspirations at each site. Again, there were no signs of intravascular or intrathecal uptake. The needles were removed and the patient was taken to the PACU in good condition. Image: Image 1 Image: Image 2 at 2152 Reported and signed by: Miakel Mendez M.D. [facility] NAME: MADINA MERIDA [address] PHYS: Maikel Helms MD [place] [address] : 1945 AGE: 75 SEX: F LOC: SHENG PHONE #: [phone] EXAM DATE: 07/22/2020 STATUS: REG [facility] FAX #: [phone] RAD #: D/C DT PAGE 1 Signed Report (CONTINUED) Patient Name: MADINA MERIDA Unit No: [id number] EXAMS: CPT CODE: [id number] XR FLUORO FOR SPINE INJ [id number] <Continued> CC: Technologist: Kailyn Chauhan(R) Transcribed D/ (2152) [facility]: [facility] [address] [facility] PHYS: Maikel Helms MD [place] [address] : 1945 AGE: 75 SEX: F LOC: SHENG PHONE #: [phone] EXAM DATE: 07/22/2020 STATUS: REG [facility] FAX #: [phone] RAD #: D/C DT PAGE 2 Signed Report Patient Name: MADINA MERIDA Unit No: [id number] EXAMS: CPT CODE: [id number] XR FLUORO FOR SPINE INJ 75389 <Continued> Orig Print D/T: S: 07/22/2020 (2155) [facility] NAME: MADINA MERIDA [address] [facility] PHYS: Maikel Helms MD [place] [address] : 1945 AGE: 75 SEX: F LOC: SHENG PHONE #: [phone] EXAM DATE: 07/22/2020 STATUS: REG [facility] FAX #: [phone] RAD #: D/C DT PAGE 3 Signed Report - MRI L-SPINE W/O 2019-03-20 Patient Name: CONT 06:53:00 MADINA MERIDA Unit No: [id number] EXAMS: CPT CODE: [id number] MRI L-SPINE W/O CONT 35031 TECHNIQUE: Multiplanar, multisequence MRI examination performed of [...] M.D. Technologist: Tien Arora(R) Transcribed D/ (0653) [facility] NAME: MADINA MERIDA [address] [facility] PHYS: Alfonzo Villalobos MD : 1945 AGE: 74 SEX: F [place] [address] LOC: Y.MRI PHONE #: [phone] EXAM DATE: 03/19/2019 STATUS: DEP [facility] FAX #: [phone] RAD #: D/C DT PAGE 1 Signed Report Patient Name: MADINA MERIDA Unit No: [id number] EXAMS: CPT CODE: [id number] MRI L-SPINE W/O CONT [id number] <Continued> Orig Print D/T: S: 03/20/2019 (0656) [facility] NAME: MADINA MERIDA [address] [facility] PHYS: Alfonzo Villalobos MD : 1945 AGE: 74 SEX: F [place] [address] LOC: Y.MRI PHONE #: [phone] EXAM DATE: 03/19/2019 STATUS: DEP CLI FAX #: [phone] RAD #: D/C DT PAGE 2 Signed Report
--- NOTE | 2020-07-23 19:04 | ER ---
Nurse's Notes [facility] Name: Suzie Gracia Age: 75 yrs Sex: Female : 1945 Arrival Date: 07/23/2020 Time: 18:31 Bed Waiting Private MD: Diagnosis: Presentation: 07/23 19:01 Note patient stated " i feel my heart went down now, I will just come back if it rr5 happens again." BP checked 144/78 HR 68 bpm, RR 17, SPO2 100%. ED Course: 18:31 Patient arrived in ED. ds1 Administered Medications: No medications were administered Outcome: 19:03 Patient left the ED. rr5 Signatures: Debbi Ozuna ds1 Eric Silvestre RN RN rr5
== END 2020-07-23 19:03 | disposition left against medical advice (07) ==
LOC: ER 18:30
DX: Z02.9 Encounter for administrative examinations, unspecified (principal)

== ENCOUNTER 2022-02-25 22:42 | Inpatient (IN) | payer OTHER ==
--- OUTSIDE RECORDS SUMMARY | 2022-02-25 22:46 | XMS REPORT | Continuity of Care Document ---
:1945 Author Organization [facility] t Address [address] [place] [address] Care Team Providers Name Role Phone Maikel Mendez Attending Clinician Unavailable Jennifer Attending Clinician Unavailable Maikel Mendez Attending Clinician [phone] Lab, Adc Fam Pob I Attending Clinician Unavailable Vera Meyers MD Attending Clinician VERA MEYERS Attending Clinician Unavailable Doctor Unassigned, [place] Attending Clinician Unavailable Maikel Mendez Admitting Clinician Unavailable SANNA ROD Admitting Clinician Unavailable Jennifer Admitting Clinician Unavailable Payers Payer Name Policy Type Policy Number Effective Date Expiration Date Sourav SALAZAR (MEDICARE [id number] 2021 REPLACEMENT PPO) 00:00:00 Problems Condition Condition Condition Status Onset Resolution Last Treating Co mments Source Name Details Category Date Date Treatment Clinician Date Degenerati Degenerati Problem Active A zalea on of on of 5-22 Orthope thoracolum Thoracolum 00:00: di c bar bar 00 Sports interverte Interverte Me dicin bral disc bral Disc e Lumbosacra Lumbosacra Problem Active A zalea l l 5-22 Orthope radiculiti Radiculiti 00:00: di c s s 00 Sports Medicin e Osteoarthr Osteoarthr Problem Active 2020-04 A zalea osis of osis of 2-20 Orthope the the 00:00: dic carpometac Carpometac 00 Sp orts arpal arpal Medicin joint of Joint of e the thumb the Thumb Acquired Acquired Problem Active 2020-04 Azale a trigger Trigger 2-20 Orthope finger Finger 00:00: dic 00 Sports Medicin e Degenerati Degenerati Problem Active A zalea on of on of 7-20 Orthope lumbar Lumbar 00:00: dic interverte Interverte 00 Sp orts bral disc bral Disc Medi ivonne e Thoracic Thoracic Problem Active Azale a radiculiti Radiculiti 4-08 Or thope s s 00:00: dic 00 Sports Medicin e Prolapsed Prolapsed Problem Active Aza camelia thoracic Thoracic 2-22 Orthop e interverte Interverte 00:00: di c bral disc bral Disc 00 Spor ts Medicin e Degenerati Degenerati Problem Active A fernandolea on of on of 2-10 Orthope thoracic Thoracic 00:00: dic interverte Interverte 00 Sp orts bral disc bral Disc Medi ivonne e Greater Greater Problem Active 2019-04 Marge trochanter Trochanter 0-23 Or thope ic pain ic Pain 00:00: dic syndrome Syndrome 00 Sports Medicin e Left foot Left foot Disease Active Uni vers pain pain 1-04 ity of 00:00: [place] 00 Medical Branch Current Current Problem Active Marge tear of Tear of 4-20 Orthope medial Medial 00:00: dic cartilage Cartilage 00 Spor ts AND/OR AND/OR Medicin meniscus Meniscus e of knee of Knee Osteoarthr Osteoarthr Problem Active A fernandojoanaa itis of itis of 4-06 Orthope knee Knee 00:00: dic 00 Sports Medicin e Tear of Tear of Problem Active Marge meniscus Meniscus 4-06 Orthop e of knee of Knee 00:00: dic 00 Sports Medicin e 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 2-20 Or thope s s 00:00: dic 00 Sports Medicin e Lumbar Lumbar Problem Active 2012-04 Marge radiculopa Radiculopa 2-20 Or thope thy thy 00:00: dic 00 Sports Medicin e Allergies, Adverse Reactions, Alerts Allergy Allergy Status Severity Reaction(s) Onset Inactive Treating Comm ents Source Name Type Date Date Clinician Penicill DA Active [place] HIVES/ LIP [facility] ins SWELLING 12-26 [place] 00:00: Orthope 00 dic Hosp[facility] Sulfa DA Active [place] RASH [facility] (Sulfona 12-26 [place] mide 00:00: Orthope Antibiot 00 dic ics) Hospita l Penicill DA Active [place] HIVES [facility] ins 08-10 [place] 00:00: Orthope 00 dic Hospita [facility] Sulfa DA Active [place] RASH [facility] (Sulfona 08-10 [place] mide 00:00: Orthope Antibiot 00 dic ics) Hospita l Penicill DA Active [place] [facility] ins 07-22 [place] 00:00: Orthope 00 dic Hospita [facility] Sulfa DA Active [place] [facility] (Sulfona 07-22 [place] mide 00:00: Orthope Antibiot 00 dic ics) Hospita l Penicill DA Active [place] HIVES [facility] ins 07-22 [place] 00:00: Orthope 00 dic Hospita l Sulfa DA Active [place] RASH [facility] (Sulfona 07-22 [place] mide 00:00: Orthope Antibiot 00 dic ics) Hospita l PENICILL Allergy Active Marge IN to 06-11 Orthope substanc 00:00: dic e 00 Sports Medicin e Sulfathi Allergy Active Marge azole to 2-26 Orthope substanc 00:00: dic e 00 Sports Medicin e Sulfa Propensi Active Itching Univers (Sulfona ty to 104 ity of mide adverse 00:00: [place] Antibiot reaction 00 Medica l ics) s Branch PENICILL Drug Active Hives Univers INS Class 1-04 ity of 00:00: [place] 00 Medical Branch SULFA Drug Active ITCHING Univers (SULFONA Class 1-04 ity of MIDE 00:00: [place] ANTIBIOT 00 Medical ICS) Branch Penicill Propensi Active Hives Univer s ins ty to 1-04 ity of adverse 00:00: [place] reaction 00 Medical s Branch SULFA Allergy Active Marge (SULFONA to 717 Orthope MIDE substanc 00:00: dic ANTIBIOT e 00 Sports ICS) Medicin e Penicill DA Active U [facility] ins 08-10 [place] 00:00: Orthope 00 dic Hospita l Penicill DA Active U U [facility] ins 08-10 [place] 00:00: Orthope 00 dic Hospita l No Known DA Active U [facility] Contrast 10-12 [place] Allergie 00:00: Orthope s 00 dic Hospita l No Known DA Active U [facility] Food 10-12 [place] Allergie 00:00: Orthope s 00 dic Hospita l No Known DA Active U [facility] Other 10-12 [place] Allergie 00:00: Orthope s 00 dic Hospita l PENICILL DA Active U 2005- [facility] IN 10-12 [place] 00:00: Orthope 00 dic Hospita l SULFA DA Active U [facility] DRUGS 10-12 [place] 00:00: Orthope 00 dic Hospita l Social History Social Habit Start Date Stop Date Quantity Comments Source Exposure to Not sure [facility]-CoV-2 [facility] (event) [place] Tobacco use and 2016-05-10 2016-05-10 Never used Universit y of exposure 00:00:00 00:00:00 [facility] Alcohol intake 2016-05-10 2016-05-10 Current drinker Unive rsity of 00:00:00 00:00:00 of alcohol [facility] (finding) [place] Sex Ass[birth year] Universit y of 00:00:00 00:00:00 [facility] Smoking Status Start Date Stop Date Source Never smoker [facility] Medications Ordered Filled Start Stop Current Ordering Indication Dosage Frequency Signature Comments Components Source Medication Medication Date Date Medication? Clinician (SIG) Name Name meloxicam meloxicam No meloxicam Marge 7.5 mg 7.5 mg 2-24 7.5 mg Orthope tablet TAKE tablet TAKE 00:00: tablet dic 1 TABLET BY 1 TABLET BY 00 TAKE 1 Sports MOUTH TWICE MOUTH TWICE TABLET BY Medicin A DAY AFTER A DAY AFTER MOUTH e PREDNISONE PREDNISONE TWICE A IS FINISHED IS FINISHED DAY AFTER PREDNISONE IS FINISHED tizanidine tizanidine No tizanidine Marge 4 mg tablet 4 mg tablet 5-06 4 mg O rthope TAKE 1 TAKE 1 00:00: tablet dic TABLET BY TABLET BY 00 TAKE 1 Spo rts MOUTH THREE MOUTH THREE TABLET BY Medicin TIMES A DAY TIMES A DAY MOUTH e THREE TIMES A DAY tizanidine tizanidine No tizanidine Marge 4 mg tablet 4 mg tablet 5-06 4 mg O rthope TAKE 1 TAKE 1 00:00: tablet dic TABLET BY TABLET BY 00 TAKE 1 Spo rts MOUTH THREE MOUTH THREE TABLET BY Medicin TIMES A DAY TIMES A DAY MOUTH e THREE TIMES A DAY tramadol 50 tramadol 50 No tramadol Marge mg tablet mg tablet 3-05 50 mg Orth ope take one po take one po 00:00: tablet dic q 6 hrs prn q 6 hrs prn 00 take one Sports pain pain po q 6 hrs Medicin prn pain e prednisone prednisone No prednisone Marge 10 mg 10 mg 2-10 10 mg Orthope tablet like tablet like 00:00: tablet dic a dospak a dospak 00 like a Sport s 6,5,4,3,2,1 6,5,4,3,2,1 dospak Medicin 6,5,4,3,2, e 1 Robaxin-750 Robaxin-750 No Robaxin-75 Marge 750 mg 750 mg 5-10 0 750 mg Orthope tablet TAKE tablet TAKE 00:00: tablet dic 1 TABLET 1 TABLET 00 TAKE 1 Sport s TID TID TABLET TID Medicin e methylPREDN 2015-04 Yes TAKE 6 Univ ers ISolone 4 2-08 TABLETS ON ity of mg tablets 00:00: DAY 1 Jamil as 00 DIRECTED Medical ON PACKAGE Branch AND DECREASE BY 1 TAB EACH DAY FOR A TOTAL OF 6 DAYS methylPREDN 2015-04 Yes TAKE 6 Univ ers ISolone 4 2-08 TABLETS ON ity of mg tablets 00:00: DAY 1 Jamil as 00 DIRECTED Medical ON PACKAGE Branch AND DECREASE BY 1 TAB EACH DAY FOR A TOTAL OF 6 DAYS methylPREDN 2015-04 Yes TAKE 6 Univ ers ISolone 4 2-08 TABLETS ON ity of mg tablets 00:00: DAY 1 Jamil as 00 DIRECTED Medical ON PACKAGE Branch AND DECREASE BY 1 TAB EACH DAY FOR A TOTAL OF 6 DAYS methylPREDN 2015-04 Yes TAKE 6 Univ ers ISolone 4 2-08 TABLETS ON ity of mg tablets 00:00: DAY 1 Jamil as 00 DIRECTED Medical ON PACKAGE Branch AND DECREASE BY 1 TAB EACH DAY FOR A TOTAL OF 6 DAYS ESTRACE 2015-04 Yes APPLY 2 Univers 0.01 % (0.1 1-04 GRAMS ity of mg/gram) 00:00: INTRAVAGIN Jamil as cream 00 ALL 2 Medical TIMES Branch WEEKLY ESTRACE 2015-04 Yes APPLY 2 Univers 0.01 % (0.1 1-04 GRAMS ity of mg/gram) 00:00: INTRAVAGIN Jamil as cream 00 [facility] 2 [facility] TIMES Branch WEEKLY ESTRACE 2015-04 Yes APPLY 2 Univers 0.01 % (0.1 1-04 GRAMS ity of mg/gram) 00:00: INTRAVAGIN Jamil as cream 00 [facility] 2 [facility] TIMES Branch WEEKLY ESTRACE 2015-04 Yes APPLY 2 Univers 0.01 % (0.1 1-04 GRAMS ity of mg/gram) 00:00: INTRAVAGIN Jamil as cream 00 [facility] 2 [facility] TIMES Branch WEEKLY metoprolol 2015-04 Yes 50mg Take 50 mg U nivers succinate 1-03 by mouth ity of XL 50 mg 24 [place]: [place]. [place] [address] [place] [address] losartan 25 2015-04 Yes 25mg Take 25 mg Univers mg tablet 1-03 by mouth ity of 00:00: daily. [address] metoprolol 2015-04 Yes 50mg Take 50 mg U nivers succinate 1-03 by mouth ity of XL 50 mg 24 [place]: [place]. [place] [address] [place] [address] losartan 25 2015-04 Yes 25mg Take 25 mg Univers mg tablet 1-03 by mouth ity of 00:00: daily. [address] metoprolol 2015-04 Yes 50mg Take 50 mg U nivers succinate 1-03 by mouth ity of XL 50 mg 24 00:[place]: [place]. [place] [address] [place] [address] losartan 25 2015-04 Yes 25mg Take 25 mg Univers mg tablet 1-03 by mouth ity of 00:00: daily. [address] metoprolol 2015-04 Yes 50mg Take 50 mg U nivers succinate 1-03 by mouth ity of XL 50 mg 24 00:[place]: [place]. [place] [address] [place] [address] losartan 25 2015-04 Yes 25mg Take 25 mg Univers mg tablet 1-03 by mouth ity of 00:00: daily. [address] doxycycline doxycycline 2012-04 No doxycyclin Marge hyclate 75 hyclate 75 2-20 e hyclate Orthope mg mg 00:00: 75 mg dic tablet,donna tablet,donna 00 tablet,del Sports yed release yed release ayed M edicin RX by other RX by other release RX e MD LLAMAS by other losartan 25 losartan 25 No losartan Marge mg tablet mg tablet 7-17 25 mg Orth ope RX by other RX by other 00:00: tablet RX dic MD LLAMAS 00 by other Sports MD Beth hernandez losartan 25 losartan 25 No losartan Marge mg tablet mg tablet 7-17 25 mg Orth ope RX by other RX by other 00:00: tablet RX dic MD LLAMAS 00 by other Sports MD Beth hernandez metoprolol metoprolol No metoprolol Marge tartrate 50 tartrate 50 7-17 tartrate Orthope mg tablet mg tablet 00:00: 50 mg di c RX by other RX by other 00 tablet RX Sports MD by other Medicin MD hernandez gabapentin gabapentin No gabapentin Marge 300 mg 300 mg 300 mg Orthope capsule capsule capsule dic TAKE 3 TAKE 3 TAKE 3 Sports CAPSULES BY CAPSULES BY CAPSULES Medicin MOUTH 3 MOUTH 3 BY MOUTH 3 e TIMES A DAY TIMES A DAY TIMES A DAY meloxicam meloxicam No meloxicam Marge 7.5 mg 7.5 mg 7.5 mg Orthope tablet TAKE tablet TAKE tablet dic 1 TABLET BY 1 TABLET BY TAKE 1 Sports MOUTH TWICE MOUTH TWICE TABLET BY Medicin A DAY AFTER A DAY AFTER MOUTH e PREDNISONE PREDNISONE TWICE A IS FINISHED IS FINISHED DAY AFTER PREDNISONE IS FINISHED methocarbam methocarbam No methocarba Marge ol 750 mg ol 750 mg mol 750 mg Orthope tablet TAKE tablet TAKE tablet dic 1 TABLET 1 TABLET TAKE 1 Sport s TID TID TABLET TID Medicin e metoprolol metoprolol No metoprolol Marge tartrate 50 tartrate 50 tartrate Orthope mg tablet mg tablet 50 mg dic TAKE 3 TAKE 3 tablet Sports TABLET BY TABLET BY TAKE 3 Med icin MOUTH MOUTH TABLET BY e DIRECTED DIRECTED MOUTH TAKE 3 TAKE 3 DIRECTED TABLET BY TABLET BY TAKE 3 MOUTH AT MOUTH AT TABLET BY ONSET OF ONSET OF MOUTH AT SVT SVT ONSET OF SVT Premarin Premarin No Premarin Aza camelia 0.625 0.625 0.625 Orthope mg/gram mg/gram mg/gram dic vaginal vaginal vaginal Sports cream cream cream Medicin INSERT 0.5 INSERT 0.5 INSERT 0.5 e GM GM GM DIRECTED DIRECTED DIRECTED WITH WITH WITH APPLICATOR APPLICATOR APPLICATOR VAGINALLY VAGINALLY VAGINALLY THREE TIMES THREE TIMES THREE A WEEK FOR A WEEK FOR TIMES A 30 DAYS 30 DAYS WEEK FOR 30 DAYS Restasis Restasis No Restasis Aza camelia 0.05 % eye 0.05 % eye 0.05 % eye Orthope drops in a drops in a drops in a dic dropperette dropperette dropperett Sports INSTILL 1 INSTILL 1 e INSTILL Medicin DROP INTO DROP INTO 1 DROP e BOTH EYES BOTH EYES INTO BOTH TWICE A DAY TWICE A DAY EYES TWICE A DAY ropinirole ropinirole No ropinirole Marge 0.25 mg 0.25 mg 0.25 mg Orthop e tablet TAKE tablet TAKE tablet dic 1 TABLET BY 1 TABLET BY TAKE 1 Sports MOUTH MOUTH TABLET BY Medicin EVERYDAY AT EVERYDAY AT MOUTH e BEDTIME BEDTIME EVERYDAY AT BEDTIME verapamil verapamil No verapamil Marge ER (SR) 240 ER (SR) 240 ER (SR) Orthope mg mg 240 mg dic tablet,exte tablet,exte tablet,ext Sports nded nded ended Medicin release release release e TAKE 1 TAKE 1 TAKE 1 TABLET BY TABLET BY TABLET BY MOUTH EVERY MOUTH EVERY MOUTH DAY DAY EVERY DAY Xanax 0.25 Xanax 0.25 No 1 Xanax 0.25 Marge mg tablet mg tablet mg tablet Orthope Take 1 Take 1 Take 1 dic tablet as tablet as tablet as Sports needed by needed by needed by Medicin oral route oral route oral route e at bedtime. at bedtime. at bedtime. Vital Signs Vital Name Observation Time Observation Value Comments Source Height 2022-01-16 00:00:00 66 [in_i] [facility] O rthopedic Sports Medicine BMI (Body Mass 2022-01-16 00:00:00 25.8 kg/m2 Marge Orthopedic Index) Sports Medicine Body Weight 2022-01-16 00:00:00 160 [lb_av] [facility] Sports Medicine Procedures Procedure Date / Time Performed Performing Clinician [facility] e ASSIGNMENT OF BENEFITS 2020-11-01 18:47:51 Doctor Unassigned, No [facility] Plan of Care Planned Activity Planned Date Details Comments Source Instructions [facility] Orthoped ic Sports Medicine Encounters Start End Encounter Admission Attending Care Care Encounter Source Date/Time Date/Time Type Type Clinicians Facility Department ID 2021-10-10 Inpatient KEIRY Stauffer PAIN [id number] [facility] 08:45:00 Maikel 41 [place] [facility] 2020-07-22 Inpatient KEIRY StaufferTO [id number] [facility] 08:39:26 Makiel 29 [place] [facility] 2022-01-20 2022-01-20 Outpatient FOG_Luo_Ran AOSM AOSM [id number] Marge 00:00:00 00:00:00 Vania [id number] Orthop e dic Sports Medicin e 2022-01-16 2022-01-16 Outpatient FOG_Luo_Ran AOSM AOSM [id number] Marge 00:00:00 00:00:00 Vania [id number] Orthop e dic Sports Medicin e 2022-01-16 2022-01-16 Lesa AOSM [place] - Ortho [id number] Marge 00:00:00 00:00:00 Mallory Rob 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 [phone] 2022-01-11 2022-01-11 Outpatient FOG_Luo_Ran AOSM AOSM [id number] Marge 00:00:00 00:00:00 Vania [id number] Orthop e dic Sports Medicin e 2021-12-26 2021-12-26 Outpatient KEIRY Stauffer PAIN [id number] [facility] 08:40:00 08:40:00 Maikel Crews [place] [facility] 2021-12-26 2021-12-26 Outpatient FOG_Luo_Ran AOSM AOSM [id number] Marge 00:00:00 00:00:00 Vania [id number] Orthop e dic Sports Medicin e 2021-12-26 2021-12-26 Maikel Holman AOSM [place] - Ortho [id number] Marge 00:00:00 00:00:00 Mallory Mendez MD: 7401 FOG_[place] dic [facility] Orthopedic Sport s Main, Hospital_OP [facility] [place] [place] [id number] , Ph. 2021-12-26 2021-12-26 Outpatient IRINA Mendez [id number] 00:00:00 00:00:00 Maikel Holman [id number] 2021-12-22 2021-12-22 Outpatient FOG_Luo_Ran AOSM AOSM [id number] Marge 00:00:00 00:00:00 Vania [id number] Orthop e dic Sports Medicin e 2021-10-04 2021-10-04 Outpatient FOG_Luo_Ran AOSM AOSM [id number] Marge 10:15:00 10:15:00 Vania [id number] Orthop e dic Sports Medicin e 2021-08-10 2021-08-10 Outpatient SLY Mendez HCATO PAIN [id number] [facility] 10:57:00 10:57:00 Maikel Marin [place] [facility] 2020-11-01 2020-11-01 Laboratory Lab, Adc Fam Pob I [facility] [id number]. [id number] Univers 13:48:12 14:08:12 Only Vera Meyers [facility] [id number] [facility] [id number] Jamil as Professio [phone] [address] Office Building One 2020-11-01 2020-11-01 Outpatient Nickie MEYERS [facility] [id number] Univers 14:00:00 14:00:00 VERA ity of [facility] 2020-11-01 2020-11-01 Letter Doctor GOTTLIEB [id number] Univers 00:00:00 00:00:00 (Out) UnassignedANGELA [id number] ity of [facility] [id number] Jamil as [phone] [address] 2020-11-01 2020-11-01 Letter Doctor GOTTLIEB [id number] Univers 00:00:00 00:00:00 (Out) UnassignedANGELA [id number] ity of [place] [facility] [id number] Jamil as [phone] [facility] 044 Branch 2020-11-01 2020-11-01 Orders Doctor BULL [id number] Univers 00:00:00 00:00:00 Only Unassigned, ANGELA [id number] ity of [place] [facility] [id number] Jamil as [phone] [facility] 009 Branch Results Test Description Test Time Test Comments Results Result [facility] e Comments - XR FLUORO FOR 2021-12-26 SPINE INJ 20:48:00 [facility] 1945 Sex: F Patient Name: MADINA MERIDA Unit No: [id number] EXAMS: CPT CODE: [id number] XR FLUORO FOR SPINE INJ 51603 THORACIC AND LUMBAR TRANSFORAMINAL INJECTION REFERRAL PHYSICIAN: None PREOPERATIVE DIAGNOSIS: Thoracolumbar Disc Degeneration and Radiculitis POSTOPERATIVE DIAGNOSIS: Thoracolumbar disc degeneration and radiculitis PROCEDURES PERFORMED: Fluoroscopically guided needle localization of the right T8 and left L2 spinal nerves with transforaminal injection of local anesthetic and steroid. FINDINGS: Mild loss of disc space height with moderate internal annular degeneration is seen at T8-9. Marked right-sided loss of disc space height with diffuse annular degeneration is seen at L2-3. Provocation was negative. Anesthetic response was positive with the patient noting relief of her thoracic and low back radiating pains. Infraneural approaches were taken at each level. Preinjection VAS 7/10. Postinjection VAS 0/10. Steroid response pending follow-up. ESTIMATED BLOOD LOSS: Minimal ANESTHESIA: TIVA COMPLICATIONS: None DETAILS OF PROCEDURE: After obtaining stable vital signs, informed consent and IV access, with no contraindications, the patient was taken to the operating room and placed in a prone position with all extremities padded and appropriate monitors placed. The patient was sterilely prepped and draped over the lumbosacral spine. Using fluoroscopic visualization the insertion sites were marked for paravertebral approaches and using standard technique, a 25 gauge needle was advanced to the base of each pedicle without paresthesias. Isovue-300 contrast 0.2 mL of was injected incrementally with frequent negative aspirations to produce each epidurogram. There were no signs of intravascular or intrathecal uptake. Intradiscal uptake was seen at each level. Bupivicaine 0.75% 0.25 mL with lidocaine 4% 0.25 mL and triamcinolone 20 mg with kefzol (100 mg/ml) 0.2 ml was then incrementally injected with frequent negative aspirations at the right T8 level with 30 mg of triamcinolone at the left L2 level and again there were no signs of intravascular or intrathecal uptake. The needles were removed and the patient was taken to the PACU in good condition. Electronically Signed: Maikel Mendez M.D. Image: Image 1 Image: Image 2 Image: Image 3 [place] [facility] NAME: MADINA MERIDA [address] [facility] PHYS: Maikel Helms MD [place], [place] [address] : 1945 AGE: 76 SEX: F LOC: SHENG PHONE #: [phone] EXAM DATE: 12/26/2021 STATUS: [facility] FAX #: [phone] RAD #: D/C DT PAGE 1 Signed Report (CONTINUED) Patient Name: MADINA MERIDA Unit No: [id number] EXAMS: CPT CODE: [id number] XR FLUORO FOR SPINE INJ 70456 (Continued) Image: Image 4 at 2047 Reported and signed by: Maikel Mendez M.D. CC: Maikel Mendez MD Technologist: PATRICK MOSQUEDA RT(R) Transcribed D/ (2047) [facility] NAME: MADINA MERIDA [address] [facility] PHYS: Maikel Helms MD [place], [place] [address] : 1945 AGE: 76 SEX: F LOC: SHENG PHONE #: [phone] EXAM DATE: 12/26/2021 STATUS: REG [facility] FAX #: [phone] RAD #: D/C DT PAGE 2 Signed Report Patient Name: MADINA MERIDA Unit No: [id number] EXAMS: CPT CODE: [id number] XR FLUORO FOR SPINE INJ 63660 (Continued) Orig Print D/T: S: 12/26/2021 (2050) [place] [facility] NAME: MADINA MERIDA [address] [facility] PHYS: Maikel Helms MD [place], [place] [address] : 1945 AGE: 76 SEX: F LOC: SHENG PHONE #: [phone] EXAM DATE: 12/26/2021 STATUS: [facility] FAX #: [phone] RAD #: D/C DT PAGE 3 Signed Report - XR FLUORO FOR 2021-08-10 SPINE INJ 18:59:00 [facility] 1945 Sex: F Patient Name: MADINA MERIDA Unit No: [id number] EXAMS: CPT CODE: [id number] XR FLUORO FOR SPINE INJ 26346 THORACIC TRANSFORAMINAL INJECTION REFERRAL PHYSICIAN: None PREOPERATIVE DIAGNOSIS: Thoracic Disc Degeneration and Radiculitis POSTOPERATIVE DIAGNOSIS: T8-9 disc degeneration with thoracic radiculitis PROCEDURES PERFORMED: Fluoroscopically guided needle localization of the right T8 spinal nerve with transforaminal injection of local anesthetic and steroid. FINDINGS: The T8-9 disc shows mild loss of disc space height with diffuse annular degeneration. Provocation with injection was partially concordant for usual pain. Anesthetic response was positive with the patient noting relief of her thoracic back and radiating chest wall pain. An infraneural approach was taken. Preinjection VAS 8/10. Postinjection VAS 0/10. Steroid response pending follow-up. ESTIMATED BLOOD LOSS: Minimal ANESTHESIA: TIVA COMPLICATIONS: None DETAILS OF PROCEDURE: After obtaining stable vital signs, informed consent and IV access, with no contraindications, the patient was taken to the operating room and placed in a prone position with all extremities padded and appropriate monitors placed. The patient was sterilely prepped and draped over the thoracic spine. Using fluoroscopic visualization the insertion site was marked for a paravertebral approach and using standard technique, a 25 gauge needle was advanced to the base of the pedicle without paresthesias. Isovue-300 contrast 0.2 mL of was injected incrementally with frequent negative aspirations to produce the epidurogram. There were no signs of intravascular or intrathecal uptake. Intradiscal uptake was seen. Bupivicaine 0.75% 0.25 mL with lidocaine 4% 0.25 mL and triamcinolone 26 mg with kefzol (100 mg/ml) 0.2 ml was then incrementally injected with frequent negative aspirations and again there were no signs of intravascular or intrathecal uptake. The needles were removed and the patient was taken to the PACU in good condition. Image: Image 1 Image: Image 2 at 1859 Reported and signed by: Maikel Mendez M.D. [place] [facility] NAME: FUADMADINA WHITFIELDLOW [address] [facility] PHYS: Maikel Helms MD [place], [place] [address] : 1945 AGE: 76 SEX: F LOC: YSergioCRUZ PHONE #: [phone] EXAM DATE: 08/10/2021 STATUS: [facility] FAX #: [phone] RAD #: D/C DT PAGE 1 Signed Report (CONTINUED) Patient Name: MADINA MERIDA Unit No: [id number] EXAMS: CPT CODE: [id number] XR FLUORO FOR SPINE INJ 55688 (Continued) CC: Maikel Mendez MD Technologist: PATRICK MOSQUEDA RT(R) Transcribed D/ (185) [facility] NAME: MADINA MERIDA [address] [facility] Main PHYS: Maikel Helms MD [place] [address] : 1945 AGE: 76 SEX: F LOC: MosesCRUZ PHONE #: [phone] EXAM DATE: 08/10/2021 STATUS: REG [facility] [place] #: [phone] RAD #: D/C DT PAGE 2 Signed Report Patient Name: MADINA MERIDA Unit No: [id number] EXAMS: CPT CODE: [id number] XR FLUORO FOR SPINE INJ 90556 (Continued) Orig Print D/T: S: 08/10/2021 (190) [facility] [place] [facility] NAME: MADINA MERIDA [address] [facility] PHYS: Maikel Helms MD [place] [address] : 1945 AGE: 76 SEX: F LOC: SHENG PHONE #: [phone] EXAM DATE: 08/10/2021 STATUS: REG [facility] [place] #: [phone] RAD #: D/C DT PAGE 3 Signed Report - XR FLUORO FOR 2020-08-02 SPINE INJ 20:08:00 [facility] 1945 Sex: F Patient Name: MADINA MERIDA Unit No: [id number] Report Has Been Amended EXAMS: CPT CODE: [id number] XR FLUORO FOR SPINE INJ 23730 Addendum - 08/02/2020 SIGNED 08/02/2020 ADDENDUM: [id number] RAD/FLLOCSPI Correction: Procedures Performed: Fluoroscopically guided needle localization of the bilateral T5, bilateral T6 and bilateral T7 spinal nerves with transforaminal epidurograms and epidural injection of local anesthetic and steroid. at 2007 Reported and signed by: Maikel Mendez M.D. Report THORACIC EPIRADICULAR INJECTION REFERRAL PHYSICIAN: None PREOPERATIVE [...] corresponding pedicle base without paresthesias. Isovue-300 contrast [facility] NAME: MADINA MERIDA [address] [facility] PHYS: Maikel Helms MD [place], [place] [address] : 1945 AGE: 75 SEX: F LOC: SHENG PHONE #: [phone] EXAM DATE: 07/22/2020 STATUS: [facility] FAX #: [phone] RAD #: D/C DT PAGE 1 Signed Report (CONTINUED) Patient Name: MADINA MERIDA Unit No: [id number] Report Has Been Amended EXAMS: CPT CODE: [id number] XR FLUORO FOR SPINE INJ 04222 (Continued) 0.5 ml was injected incrementally with digital [...] 2 at 2152 Reported and signed by: Maikel Mendez M.D. CC: Technologist: Kailyn Chauhan(R) Transcribed D/ (2152) [facility]: MADINA MERIDA [address] [facility] PHYS: Maikel Helms MD [place], [place] [address] : 1945 AGE: 75 SEX: F LOC: SHENG PHONE #: [phone] EXAM DATE: 07/22/2020 STATUS: [facility] FAX #: [phone] RAD #: D/C DT PAGE 2 Signed Report Patient Name: MADINA MERIDA Unit No: [id number] Report Has Been Amended EXAMS: CPT CODE: [id number] XR FLUORO FOR SPINE INJ 17909 (Continued) Orig Print D/T: S: 07/22/2020 (2155) [facility] NAME: MADINA MERIDA [address] [facility] PHYS: Maikel Helms MD [place], [place] [address] : 1945 AGE: 75 SEX: F LOC: SHENG PHONE #: [phone] EXAM DATE: 07/22/2020 STATUS: DEP [facility] [place]X #: [phone] RAD #: D/C DT PAGE 3 Signed Report - XR FLUORO FOR 2020-07-22 SPINE INJ 21:53:00 [facility] : 1945 Sex: F Patient Name: MADINA MERIDA Unit No: [id number] EXAMS: CPT CODE: [id number] XR FLUORO FOR SPINE INJ 26696 THORACIC EPIRADICULAR INJECTION REFERRAL PHYSICIAN: None PREOPERATIVE [...] 2 at 2152 Reported and signed by: Maikel Mendez M.D. [facility] [place] [facility] NAME: MADINA MERIDA [address] [facility] PHYS: Maikel Helms MD [place], [place] [address] : 1945 AGE: 75 SEX: F LOC: SHENG PHONE #: [phone] EXAM DATE: 07/22/2020 STATUS: REG [facility] [place] FAX #: [phone] RAD #: D/C DT PAGE 1 Signed Report (CONTINUED) Patient Name: MADINA MERIDA Unit No: [id number] EXAMS: CPT CODE: [id number] XR FLUORO FOR SPINE INJ 38821 (Continued) CC: Technologist: Kailyn Chauhan(R) Transcribed D/ (2152) [facility]: MADINA MERIDALOW [address] [facility] PHYS: Maikel Helms MD [place], [place] [address] : 1945 AGE: 75 SEX: F LOC: SHENG PHONE #: [phone] EXAM DATE: 07/22/2020 STATUS: REG [facility] [place] FAX #: [phone] RAD #: D/C DT PAGE 2 Signed Report Patient Name: MADINA MERIDA Unit No: [id number] EXAMS: CPT CODE: [id number] XR FLUORO FOR SPINE INJ 18248 (Continued) Orig Print D/T: S: 07/22/2020 (2155) [place] [facility] NAME: MADINA MERIDA [address] [facility] PHYS: Maikel Helms MD [place], [place] [address] : 1945 AGE: 75 SEX: F LOC: SHENG PHONE #: [phone] EXAM DATE: 07/22/2020 STATUS: REG [facility] FAX #: [phone] RAD #: D/C DT PAGE 3 Signed Report - MRI L-SPINE W/O 2019-03-20 Patient Name: CONT 06:53:00 MADINA MERIDA Unit No: [id number] EXAMS: CPT CODE: [id number] MRI L-SPINE W/O CONT 39737 TECHNIQUE: Multiplanar, multisequence MRI examination performed of [...] M.D. Technologist: Tien Arora(R) Transcribed D/ (0653) Katie [facility] NAME: MADINA MERIDA [address] [facility] PHYS: Alfonzo Villalobos MD : 1945 AGE: 74 SEX: F [place] [address] LOC: Y.MRI PHONE #: [phone] EXAM DATE: 03/19/2019 STATUS: DEP CLI FAX #: [phone] RAD #: D/C DT PAGE 1 Signed Report Patient Name: MADINA MERIDA Unit No: [id number] EXAMS: CPT CODE: [id number] MRI L-SPINE W/O CONT 58487 (Continued) Orig Print D/T: S: 03/20/2019 (0656) [facility] NAME: MADINA MERIDA [address] [place] [address] PHYS: Alfonzo Villalobos MD : 1945 AGE: 74 SEX: F [place] [address] LOC: Y.MRI PHONE #: [phone] EXAM DATE: 03/19/2019 STATUS: DEP CLI FAX #: [phone] RAD #: D/C DT PAGE 2 Signed Report
[2022-02-26 00:13] LABS: Urine Blood Negative (Negative); Urine Glucose Negative (Negative); Urine Protein Trace (Negative); Urine Specific Gravity 1.025 (1.005-1.030); Urine pH 5.5 (5.0-7.0)
[2022-02-26 00:14] LABS: Absolute Lymphocytes (CBC) 1.5 K/uL (0.7-4.9); Lymphocytes % 12.9 % (15.3-44.8); MCV 95.8 fL (80-100); RBC Red Blood Cell Count 4.28 M/uL (3.86-4.86)
[2022-02-26] MEDS ORDERED: MORPHINE 4 MG/ML SYR ONE ×2 (00:15→00:56)
[2022-02-26] MEDS ORDERED: FAMOTIDINE 20 MG/2 ML VIAL IV ONE (00:15)
[2022-02-26] MEDS ORDERED: ONDANSETRON 4 MG/2 ML VIAL ONE ×3 (00:15→08:33)
[2022-02-26 00:21] LABS: Urine Mucus Slight /HPF (None Seen); Urine RBC <5 /HPF (None Seen)
[2022-02-26 01:23] LABS: Albumin 3.6 g/dL (3.4-5.0); Bilirubin Total 0.4 mg/dL (0.2-1.0); Potassium 3.8 mmol/L (3.5-5.1); Protein, Total 7.7 g/dL (6.4-8.2)
[2022-02-26] MEDS ORDERED: NA CHLORIDE 0.9% 1,000 ML ONE ×2 (02:00→05:35)
[2022-02-26] MEDS ORDERED: FENTANYL CITR 100 MCG/2 ML ONE ×2 (02:00→08:32)
--- NOTE | 2022-02-26 03:07 | EDPHYS ---
Physician Documentation [facility] Name: Suzie Gracia Age: 77 yrs Sex: Female : 1945 Arrival Date: 02/25/2022 Time: 22:44 Bed 17 Private MD: ED Physician Logan Davis HPI: 02/25 23:30 This 77 yrs old Female presents to ER via Ambulatory with complaints of Nausea, cp Abdominal Pain. 23:30 The patient presents with abdominal pain in the epigastric area, in the upper abdomen. cp 23:30 Onset: The symptoms/episode began/occurred today, 2 hour(s) ago. The symptoms radiate cp to back. Associated signs and symptoms: Pertinent positives: chest pain, nausea, Pertinent negatives: constipation, diarrhea, fever, headache, vomiting. The symptoms are described as constant. 23:30 Severity of pain: in the emergency department the pain is actually worse moderately. cp Historical: - Allergies: 22:56 PENICILLINS; kb3 22:56 Sulfa (Sulfonamide Antibiotics); kb3 - Home Meds: 22:56 tramadol 50 mg Oral tab 1 tab every 6 hours [Active]; verapamil 120 mg Oral C24P 2 caps kb3 once daily [Active]; 02/26 03:39 metoprolol succinate 50 mg oral Tb24 once daily [Active]; metoprolol tartrate 50 mg vc1 Oral tab 2 tabs [Active]; Gabapentin 900 mg three times a day [Active]; Methocarbamol three times a day [Active]; - PMHx: 02/25 22:56 Hypertension; SVT; Chronic back pain; kb3 - PSHx: 22:56 section; kb3 - Immunization history:: Adult Immunizations up to date, Client reports receiving the 2nd dose of the Covid vaccine, Last tetanus immunization: up to date. - Social history:: Smoking status: Patient denies any tobacco usage or history of. ROS: 23:35 Constitutional: Negative for body aches, chills, fever, poor PO intake. cp 23:35 Eyes: Negative for injury, pain, redness, and discharge. cp 23:35 ENT: Negative for drainage from ear(s), ear pain, sore throat, difficulty swallowing, difficulty handling secretions. 23:35 Cardiovascular: Positive for chest pain, Negative for edema, palpitations. 23:35 Respiratory: Negative for cough, shortness of breath, wheezing. 23:35 Abdomen/GI: Positive for abdominal pain, nausea, of the epigastric area, right upper quadrant and left upper quadrant, Negative for vomiting, diarrhea, constipation. 23:35 Back: Positive for radiated pain. 23:35 : Negative for urinary symptoms. 23:35 Skin: Negative for diaphoresis, rash. 23:35 Neuro: Negative for altered mental status, dizziness, headache, syncope, weakness. 23:35 All other systems are negative. Exam: 23:40 Constitutional: The patient appears in no acute distress, alert, awake, cp non-diaphoretic, non-toxic, well developed, well nourished, uncomfortable. 23:40 Head/Face: Normocephalic, atraumatic. cp 23:40 Eyes: Periorbital structures: appear normal, Conjunctiva: normal, no exudate, no injection, Sclera: no appreciated abnormality, Lids and lashes: appear normal, bilaterally. 23:40 ENT: External ear(s): are unremarkable, Nose: is normal, Mouth: Lips: moist, Oral mucosa: moist, Posterior pharynx: Airway: no evidence of obstruction, patent. 23:40 Chest/axilla: Inspection: normal. 23:40 Cardiovascular: Rate: normal, Rhythm: regular, Edema: is not appreciated, JVD: is not appreciated. 23:40 Respiratory: the patient does not display signs of respiratory distress, Respirations: normal, no use of accessory muscles, no retractions, labored breathing, is not present, Breath sounds: are clear throughout, no decreased breath sounds, no stridor, no wheezing. 23:40 Abdomen/GI: Inspection: abdomen appears normal, Bowel sounds: active, all quadrants, Palpation: soft, in all quadrants, severe abdominal tenderness, in the epigastric area, right upper quadrant and left upper quadrant, rebound tenderness, is not appreciated, involuntary guarding, is elicited in the epigastric area and right upper quadrant. 23:40 Back: CVA tenderness, is absent. 23:40 Skin: cellulitis, is not appreciated, no rash present. 23:40 Neuro: Orientation: to person, place \T\ time. Mentation: is normal, Motor: moves all fours, strength is normal, Sensation: is normal. 02/26 00:57 ECG was reviewed by the Attending Physician. Vital Signs: 02/25 22:55 BP 159 / 80; Pulse 73; Resp 20; Temp 98.5; Pulse Ox 96% ; Weight 72.57 kg; Height 5 ft. kb3 6 in. (167.64 cm); Pain 9/10; 02/26 01:00 BP 103 / 58; Pulse 66; Resp 16; Pulse Ox 92% on R/A; vc1 02:00 BP 129 / 67; Pulse 71; Resp 14; Pulse Ox 91% on R/A; vc1 02/25 22:55 Body Mass Index 25.82 (72.57 kg, 167.64 cm) kb3 MDM: 02/25 23:11 Patient medically screened. 02/26 00:00 Differential diagnosis: AAA, acute coronary syndrome, bowel obstruction, cholecystitis, cp Cholelithiasis, gastroesophageal reflux disease, sympomatic leaking abdominal aortic aneurysm, pancreatitis, Peptic Ulcer Disease, Perf. Duodenal Ulcer, Perf. Gastric Ulcer, Ureterolithiasis, urinary tract infection. 03:07 ED course: Discussed case with Dr Moreland and [facility].. 03:52 ED course: Discussed case with Dr Hinds. Patient does not need GI. Patient will not ms3 need transfer to [facility]. Discussed case with Dr Moreland. He agrees with Irineo Kilpatrick, NPO, IVF. Discussed plan for admission with patient and her . Patient remains in stable condition.. 03:54 Data reviewed: vital signs, nurses notes, lab test result(s), radiologic studies, and ms3 as a result, I will admit patient. Counseling: I had a detailed discussion with the patient and/or guardian regarding: the historical points, exam findings, and any diagnostic results supporting the discharge/admit diagnosis, lab results, radiology results, the need for further work-up and treatment in the hospital. 04:07 ED course: Discussed admission with Dr Chang and he agrees with plan and accepts ms3 admission. 02/25 23:29 Order name: CBC with Diff; Complete Time: 00:32 vc1 02/26 00:32 Interpretation: Abnormal: WBC 11.80; CARIDAD% 81.0; LYM% 12.9; NEUT A 9.6. cp 02/25 23:29 Order name: CMP; Complete Time: 01:41 vc1 02/26 01:41 Interpretation: Normal except: GLUC 143; GFR 86; AST 13; ALK 125; GLOB 4.1; A/G 0.9. 02/25 23:29 Order name: Lipase; Complete Time: 01:41 vc1 02/25 23:29 Order name: CBC with Diff 02/25 23:29 Order name: CMP 02/25 23:29 Order name: Lipase 02/25 23:29 Order name: Urine Microscopic Only; Complete Time: 00:32 02/25 23:46 Order name: Lactate; Complete Time: 00:52 02/26 00:52 Interpretation: LAC 1.5; Reviewed. 02/26 00:13 Order name: Urine Dipstick-Ancillary; Complete Time: 00:32 EDMS 02/26 00:32 Order name: Troponin High Sensitivity; Complete Time: 01:41 02/26 03:07 Order name: SARS RAPID; Complete Time: 03:44 [facility] 02/26 04:16 Order name: Basic Metabolic Panel EDCA 02/26 04:16 Order name: Basic Metabolic Panel EDCA 02/26 04:16 Order name: CBC with Automated Diff EDCA 02/25 23:46 Order name: XRAY Chest (1 view) 02/25 23:46 Order name: US Abdomen Limited: gallbladder 02/26 01:04 Order name: CT Aorta for Dissection 02/26 04:16 Order name: CBC with Automated Diff EDCA 02/25 23:29 Order name: IV Saline Lock; Complete Time: 00:23 02/25 23:29 Order name: Labs collected and sent; Complete Time: 00:23 02/25 23:29 Order name: Urine Dipstick-Ancillary (obtain specimen); Complete Time: 00:23 02/25 23:46 Order name: NPO; Complete Time: 00:22 02/26 00:32 Order name: EKG; Complete Time: 00:32 02/26 00:32 Order name: EKG - Nurse/Tech; Complete Time: 00:54 02/26 04:16 Order name: CONS Physician Consult EDCA 02/26 04:16 Order name: NPO; Complete Time: 06:28 EDMS EC:57 Rate is 68 beats/min. Rhythm is regular. AR interval is normal. QRS interval is normal. cp QT interval is normal. Interpreted by me. Reviewed by me. Administered Medications: 00:22 Drug: morphine 4 mg Route: IVP; Infused Over: 4 mins; Site: right wrist; vc1 01:00 Follow up: Response: No adverse reaction; No change in condition vc1 00:23 Drug: Pepcid (famotidine) 20 mg Route: IVP; Site: right wrist; vc1 01:00 Follow up: Response: No adverse reaction vc1 00:23 Drug: Zofran (Ondansetron) 4 mg Route: IVP; Site: right wrist; vc1 01:00 Follow up: Response: No adverse reaction vc1 01:01 Drug: morphine 4 mg Route: IVP; Infused Over: 4 mins; Site: right wrist; vc1 02:00 Follow up: Response: No adverse reaction; No change in condition vc1 02:22 Drug: NS 0.9% 500 ml Route: IV; Rate: bolus; Site: right antecubital; vc1 02:50 Follow up: IV Status: Completed infusion; IV Intake: 500ml vc1 02:22 Drug: fentaNYL (PF) 25 mcg Route: IVP; Site: right antecubital; vc1 02:30 Follow up: Response: No adverse reaction; No adverse reaction; pain decreased minimally vc1 but pt O2 saturation dropped to 88% 02:51 Drug: NS 0.9% 500 ml Route: IV; Rate: 100 ml/hr; Site: right antecubital; vc1 05:23 Follow up: IV Status: Infusion continued upon admission vc1 03:34 Drug: Flagyl (metroNIDAZOLE) 500 mg Volume: 100 ml; Route: IVPB; Rate: 200 ml/hr; vc1 Infused Over: 30 mins; Site: right antecubital; 04:04 Follow up: IV Status: Completed infusion; IV Intake: 100ml vc1 03:34 Drug: ProTONIX (pantoprazole) 40 mg Route: IVP; Site: right antecubital; vc1 05:22 Follow up: Response: No adverse reaction vc1 03:35 Drug: Cipro (ciprofloxacin) 400 mg Volume: 200 ml; Route: IVPB; Infused Over: 60 mins; vc1 Site: right antecubital; 04:35 Follow up: IV Status: Completed infusion; IV Intake: 200ml vc1 05:03 Drug: ProTONIX (pantoprazole) 40 mg Route: IVP; Site: right antecubital; vc1 05:22 Follow up: Response: No adverse reaction vc1 05:03 Drug: ProTONIX (pantoprazole) 8 mg/hr Route: IV; Rate: 25 ml/hr; Site: right vc1 antecubital; 05:22 Follow up: IV Status: Infusion continued upon admission vc1 Disposition: 03:54 Co-signature as Attending Physician, Logan Davis DO. ms3 Disposition Summary: 02/26/22 03:52 Hospitalization Ordered Hospitalization Status: Inpatient Admission ms3 Condition: Stable(02/26/22 03:52) ms3 Problem: new(02/26/22 03:52) ms3 Symptoms: are unchanged(02/26/22 03:52) ms3 Bed/Room Type: Standard ms3 Provider: Osmel Chang(02/26/22 04:08) ms3 Location: [facility] ER HOLD(02/26/22 04:27) cg Room Assignment: ERHOLD-(02/26/22 04:27) cg Diagnosis - Perforated Gastric ulcer ms3 - Abdominal pain, Generalized(02/26/22 03:52) ms3 Forms: - Medication Reconciliation Form ms3 - SBAR form ms3 Critical care time excluding procedures: 03:54 Critical care time: Bedside Care: 35 minutes, Consultation: 15 minutes, Family ms3 Intervention: 10 minutes. Total time: 60 minutes Signatures: Dispatcher [employer] EDMS Klever Dela Cruz PA PA cp Garcia, Cindy, RN RN cg Logan Davis DO DO ms3 Michelle Bradley RN RN vc1 Marie Villalta, RN RN kb3 Corrections: (The following items were deleted from the chart) 02/25 23:29 23:29 IV Saline Lock ordered. vc1 vc1 23:29 23:29 Labs collected and sent ordered. 1 vc1 23:29 23:29 Urine Dipstick-Ancillary ordered. vc1 vc1 02/26 01:13 02/25 23:51 Abdomen Pelvis W Con+CT.RAD.BRZ ordered. EDCA EDMS 02/26 03:42 02/25 22:56 Home Meds: metoprolol succinate 100 mg Oral Tb24 1 tab once daily; kb3 vc1 02/26 03:42 11 22:56 Home Meds: metoprolol tartrate 50 mg Oral tab; kb3 vc1 02/26 03:42 11 22:56 Home Meds: Gabapentin; 3 vc1 02/26 03:42 11 22:56 Home Meds: Methocarbamol; kb3 vc1 02/26 03:51 03:06 ms3 ms3 03:51 03:06 [facility] ms3 ms3 03:51 03:06 Higher level of care ms3 ms3 03:51 03:06 Stable ms3 ms3 03:51 03:06 new ms3 ms3 03:51 03:06 are unchanged ms3 ms3 03:51 03:06 Perforated gastric ulcer ms3 ms3 03:51 03:06 Abdominal pain, Generalized ms3 ms3 04:07 03:52 ED course: Discussed case with Dr Hinds. Patient does not need GI. Patient ms3 will not need transfer to [facility]. Discussed case with Dr Moreland. He agrees with Irineo Kilpatrick, NPO, IVF. Discussed case with Shivam Rashid, ROLL OPERATOR, and he accepts patient on behalf of Dr Guerrero. Discussed plan for admission with patient and her . Patient remains in stable condition.. ms3 04:08 03:52 Tigre Guerrero ms3 ms3 04:19 02/25 23:30 Onset: The symptoms/episode began/occurred today, 3 hour(s) ago, cp cp 02/26 04:27 03:52 Telemetry/MedSurg (Inpatient) ms3 cg 04:27 03:52 ms3 cg
--- NOTE | 2022-02-26 03:07 | ER ---
Nurse's Notes [facility] Name: Suzie Gracia Age: 77 yrs Sex: Female : 1945 Arrival Date: 02/25/2022 Time: 22:44 Bed 17 Private MD: Diagnosis: Perforated Gastric ulcer;Abdominal pain, Generalized Presentation: 02/25 22:55 Chief complaint: Patient states: Pt reports epigastric and RUQ pain that began at 2130 kb3 approximately 3 hrs after eating taco soup for dinner.+nausea. Denies fever, vomiting, diarrhea. Coronavirus screen: Vaccine status: Patient reports receiving the 2nd dose of the covid vaccine. Client denies travel out of the [place] in the last 14 days. Ebola Screen: Patient negative for fever greater than or equal to 101.5 degrees Fahrenheit, and additional compatible Ebola Virus Disease symptoms Patient denies exposure to infectious person. Patient denies travel to an Ebola-affected area in the 21 days before illness onset. Initial Sepsis Screen: Does the patient meet any 2 criteria? No. Patient's initial sepsis screen is negative. Does the patient have a suspected source of infection? No. Patient's initial sepsis screen is negative. Risk Assessment: Do you want to hurt yourself or someone else? Patient reports no desire to harm self or others. Onset of symptoms was February 25, 2022 at 21:30. 22:55 Method Of Arrival: Ambulatory kb3 22:55 Acuity: DWIGHT 3 kb3 Triage Assessment: 22:56 General: Appears in no apparent distress. uncomfortable, Behavior is calm, cooperative. kb3 Pain: Complains of pain in epigastric area and right upper quadrant Pain does not radiate. Pain currently is 9 out of 10 on a pain scale. Quality of pain is described as sharp. GI: Reports upper abdominal pain, epigastric pain, nausea. Historical: - Allergies: 22:56 PENICILLINS; kb3 22:56 Sulfa (Sulfonamide Antibiotics); kb3 - Home Meds: 22:56 tramadol 50 mg Oral tab 1 tab every 6 hours [Active]; verapamil 120 mg Oral C24P 2 caps kb3 once daily [Active]; 02/26 03:39 metoprolol succinate 50 mg oral Tb24 once daily [Active]; metoprolol tartrate 50 mg vc1 Oral tab 2 tabs [Active]; Gabapentin 900 mg three times a day [Active]; Methocarbamol three times a day [Active]; - PMHx: 02/25 22:56 Hypertension; SVT; Chronic back pain; kb3 - PSHx: 22:56 section; kb3 - Immunization history:: Adult Immunizations up to date, Client reports receiving the 2nd dose of the Covid vaccine, Last tetanus immunization: up to date. - Social history:: Smoking status: Patient denies any tobacco usage or history of. Screenin/13 01:34 Abuse screen: Denies threats or abuse. Nutritional screening: No deficits noted. vc1 Tuberculosis screening: No symptoms or risk factors identified. Fall Risk None identified. Assessment: 01:35 Reassessment: No changes from previously documented assessment. Patient and/or family vc1 updated on plan of care and expected duration. Pain level reassessed. 01:35 GI: Abdomen is round. vc1 03:01 Reassessment: No changes from previously documented assessment. Patient and/or family vc1 updated on plan of care and expected duration. Pain level reassessed. Pain: Complains of pain in left upper quadrant and right upper quadrant and epigastric area. 07:00 Reassessment: RECD REPORT FROM JUAN HARRIS. PT ON ER HOLD, SEE [facility]. bp Vital Signs: 02/25 22:55 BP 159 / 80; Pulse 73; Resp 20; Temp 98.5; Pulse Ox 96% ; Weight 72.57 kg; Height 5 ft. kb3 6 in. (167.64 cm); Pain 9/10; 02/26 01:00 BP 103 / 58; Pulse 66; Resp 16; Pulse Ox 92% on R/A; vc1 02:00 BP 129 / 67; Pulse 71; Resp 14; Pulse Ox 91% on R/A; vc1 02/25 22:55 Body Mass Index 25.82 (72.57 kg, 167.64 cm) kb3 ED Course: 02/25 22:44 Patient arrived in ED. bp1 22:56 Triage completed. kb3 22:56 Arm band placed on right wrist. Patient placed in an exam room, on a stretcher. kb3 23:07 Klever Dela Cruz PA is PHCP. cp 23:07 Logan Davis DO is Attending Physician. cp 23:28 Juan Bradley, KIMBERLY is Primary Nurse. vc1 02/26 00:39 US Abdomen Limited: gallbladder In Process Unspecified. EDMS 00:42 XRAY Chest (1 view) In Process Unspecified. EDMS 01:34 Patient has correct armband on for positive identification. Bed in low position. Call vc1 light in reach. Pulse ox on. NIBP on. 02:10 CT Aorta for Dissection In Process Unspecified. EDMS 03:21 initiated a transfer with Alberto from [facility]. mw2 03:30 No provider procedures requiring assistance completed. Patient admitted, IV remains in vc1 place. 03:[address] Davis with the Doctor from [facility]. mw2 03:51 Tigre Guerrero MD is Hospitalizing Provider. ms3 04:08 Osmel Chang MD is Hospitalizing Provider. ms3 Administered Medications: 00:22 Drug: morphine 4 mg Route: IVP; Infused Over: 4 mins; Site: right wrist; vc1 01:00 Follow up: Response: No adverse reaction; No change in condition vc1 00:23 Drug: Pepcid (famotidine) 20 mg Route: IVP; Site: right wrist; vc1 01:00 Follow up: Response: No adverse reaction vc1 00:23 Drug: Zofran (Ondansetron) 4 mg Route: IVP; Site: right wrist; vc1 01:00 Follow up: Response: No adverse reaction vc1 01:01 Drug: morphine 4 mg Route: IVP; Infused Over: 4 mins; Site: right wrist; vc1 02:00 Follow up: Response: No adverse reaction; No change in condition vc1 02:22 Drug: NS 0.9% 500 ml Route: IV; Rate: bolus; Site: right antecubital; vc1 02:50 Follow up: IV Status: Completed infusion; IV Intake: 500ml vc1 02:22 Drug: fentaNYL (PF) 25 mcg Route: IVP; Site: right antecubital; vc1 02:30 Follow up: Response: No adverse reaction; No adverse reaction; pain decreased minimally vc1 but pt O2 saturation dropped to 88% 02:51 Drug: NS 0.9% 500 ml Route: IV; Rate: 100 ml/hr; Site: right antecubital; vc1 05:23 Follow up: IV Status: Infusion continued upon admission vc1 03:34 Drug: Flagyl (metroNIDAZOLE) 500 mg Volume: 100 ml; Route: IVPB; Rate: 200 ml/hr; vc1 Infused Over: 30 mins; Site: right antecubital; 04:04 Follow up: IV Status: Completed infusion; IV Intake: 100ml vc1 03:34 Drug: ProTONIX (pantoprazole) 40 mg Route: IVP; Site: right antecubital; vc1 05:22 Follow up: Response: No adverse reaction vc1 03:35 Drug: Cipro (ciprofloxacin) 400 mg Volume: 200 ml; Route: IVPB; Infused Over: 60 mins; vc1 Site: right antecubital; 04:35 Follow up: IV Status: Completed infusion; IV Intake: 200ml vc1 05:03 Drug: ProTONIX (pantoprazole) 40 mg Route: IVP; Site: right antecubital; vc1 05:22 Follow up: Response: No adverse reaction vc1 05:03 Drug: ProTONIX (pantoprazole) 8 mg/hr Route: IV; Rate: 25 ml/hr; Site: right vc1 antecubital; 05:22 Follow up: IV Status: Infusion continued upon admission vc1 Medication: 01:34 VIS not applicable for this client. vc1 Intake: 02:50 IV: 500ml; Total: 500ml. vc1 04:04 IV: 100ml; Total: 600ml. vc1 04:35 IV: 200ml; Total: 800ml. vc1 Outcome: 03:06 ER care complete, transfer ordered by MD. ms3 03:52 Decision to Hospitalize by Provider. ms3 03:52 Admitted to ER Hold. Please see [facility] for further documentation. vc1 03:52 Condition: stable 03:52 Instructed on the need for admit. 08:34 Patient left the ED. bp Signatures: Dispatcher [employer] EDMS Klever Dela Cruz PA PA cp Peltier, Brian RN RN bp Bita Beauchamp mw2 Logan Davis DO DO ms3 Swetha Patel bp1 Juan Bradley RN RN vc1 Marie Villalta RN RN kb3 Corrections: (The following items were deleted from the chart) 03:42 11/12 22:56 Home Meds: metoprolol succinate 100 mg Oral Tb24 1 tab once daily; kb3 vc1 02/26 03:42 02/25 22:56 Home Meds: metoprolol tartrate 50 mg Oral tab; kb3 vc1 02/26 03:02/25 22:56 Home Meds: Gabapentin; kb3 vc1 02/26 03:02/25 22:56 Home Meds: Methocarbamol; kb3 vc1
[2022-02-26] MEDS ORDERED: PANTOPRAZOLE 40 MG INJ ONE ×2 (03:22→04:53)
[2022-02-26] MEDS ORDERED: CIPROFLOXACIN 400mg IV 400 MG/200 ML BAG IV ONE (03:22)
[2022-02-26] MEDS ORDERED: METRONIDAZOLE 500mg IVPB 500 MG/100 ML BAG IV ONE (03:23)
[2022-02-26 03:32] LABS: SARS-CoV-2 Antigen Rapid Res Negative (Negative)
[2022-02-26] MEDS ORDERED: MORPHINE 4 MG/ML SYR IV PRN (04:11)
[2022-02-26] MEDS ORDERED: ONDANSETRON 4 MG/2 ML VIAL IV PRN (04:11)
[2022-02-26] MEDS ORDERED: NA CHLORIDE 0.9% 250 ML ONE (04:53)
[2022-02-26] MEDS: PANTOPRAZOLE INJ 80 MG in NA CHLORIDE 0.9% 250 ML IV SCH ×3 (05:00→23:47)
[2022-02-26 05:11] VITALS: BMI 25.8
[2022-02-26] MEDS: NA CHLORIDE 0.9% 1,000 ML IV SCH ×4 (06:00→20:10)
[2022-02-26] MEDS ORDERED: METRONIDAZOLE 500mg IVPB 500 MG/100 ML BAG IV SCH (06:00)
--- NOTE | 2022-02-26 08:25 | P.CNS ---
Date of Consult: 02/26/22 Reason for consult: Abdominal pain History of present illness: Patient is a 77-year-old female presents to the emergency room last night with sudden onset of epigastric and upper abdominal pain associated with nausea but no vomiting. Patient does not have diarrhea, constipation, bright blood per rectum, dysuria or hematuria. Patient denies sore throat, runny nose, cough, headache, dizziness, fever or chills. Review of systems: Otherwise unremarkable Past medical history: Hypertension, SVT, chronic pain Past surgical history: x2, infected cyst on the abdomen and right kidney surgery Allergies: Penicillin and sulfa Social history: Does not smoke and drinks occasionally Family history: Noncontributory Vital signs: Stable, afebrile Physical exam: Awake, alert and oriented x3 Head and neck exam: Cranial nerves II through XII grossly within normal limits, throat clear, neck supple, no JVD and no neck masses Chest: Clear Heart: S1-S2 Abdomen: Slightly distended in the upper abdomen, tenderness with rebound but no rigidity or guarding and hypoactive bowel sounds Extremity: Neurovascular intact, nontender Neuro: Nonfocal Diagnostic data: CT of the abdomen pelvis reviewed with Dr. Jovel and it reveals a perforated duodenal ulcer with free air and fluid in the region as well as in the pelvis. Laboratory data reviewed. Assessment: Perforated duodenal ulcer Plan/recommendation: Admit, n.p.o., IV fluids, IV antibiotics, proton pump inhibitor and to the OR for exploratory laparotomy and repair of a perforated duodenal ulcer. Patient and understand risk benefits alternatives and agreed to procedure. Case discussed with Dr. Chang. CC: Dr. Chang's office
[2022-02-26] MEDS ORDERED: GLYCOPYRROLATE 0.2 MG/ML SYR ONE (08:32)
[2022-02-26] MEDS ORDERED: NEOSTIGMINE 1 MG/ML -10 ML VIAL ONE (08:32)
[2022-02-26] MEDS ORDERED: MIDAZOLAM HCL 2 MG/2 ML INJ ONE (08:32)
[2022-02-26] MEDS ORDERED: ETOMIDATE 20 MG/10 ML VIAL IV ONE (08:33)
[2022-02-26] MEDS ORDERED: KETOROLAC 30 MG/ML INJ ONE (08:33)
[2022-02-26] MEDS ORDERED: ROCURONIUM 50 MG/5 ML VIAL IV ONE (08:33)
[2022-02-26] MEDS ORDERED: MORPHINE 10 MG/ML VIAL ONE (08:33)
[2022-02-26] MEDS: METRONIDAZOLE 500mg IVPB 500 MG/100 ML BAG IV SCH ×3 (09:40→19:56)
[2022-02-26] MEDS ORDERED: Ringers Lactate 1,000 ML IV ONE (10:17)
--- NOTE | 2022-02-26 10:41 | P.OP ---
Date of Service: 02/26/22 Preop diagnosis: Perforated duodenal ulcer Postop diagnosis: Same Procedure performed: Exploratory laparotomy, Jeremy patch repair of a perforated duodenal ulcer Surgeon: Marty Moreland MD Physical Instructor: Kary ALCANTAR Estimated blood loss: Minimal Specimen: None Findings: As above Anesthesia: General Complications: None Drains: None Fluids and blood products: Nonapplicable Disposition: Recovery room Operative note: Patient brought to the OR placed supine position. General anesthesia begun. Patient prepped and draped in usual sterile fashion. Then upper midline incision made above the umbilicus and below the xiphoid process. Subcutaneous tissue divided and fascia identified and divided. Peritoneal cavity entered with sharp and blunt dissection. Exploratory laparotomy revealed the following findings normal GE junction, normal stomach, beyond the pylorus there was fibrinous exudate and an anterior perforated duodenum ulcer. This's perforation was approximately 5 mm in diameter. There was minimal bilious material in this area but moderate amount of fibrinous exudate was present. Remainder of the duodenum and small bowel were within normal limit. There was some fluid in the pelvis which was aspirated. There was some fluid on top of the liver which was aspirated as well as in the near the gallbladder fossa. Subsequently, omentum was mobilized from the transverse colon with LigaSure. Then a four-point Jeremy patch was performed in the standard fashion. This covered the perforated ulcer completely. Entire abdomen was irrigated. Effluent was clear. There was no evidence of bleeding or bowel injury appreciated. And there was no other evidence of disease. #2 nylon was used to close the midline fascia. Subcutaneous was irrigated and bleeding controlled cautery. 3-0 chromic used to approximate subcutaneous tissues loosely and berenice used to close skin. Sterile dressing applied. Patient awakened and taken to recovery room in good general condition. CC: Dr. Chang's office
--- NOTE | 2022-02-26 11:59 | HP ---
Date of Admission: 02/26/2022 Chief Complaint: Abdominal pain. History Of Present Illness: This is a 77-year-old very pleasant female patient, who came into emergency room with acute onset of severe abdominal pain last night. After she was evaluated in the ER, she was admitted to the hospital with perforated ulcer. This morning when I saw her, she was in Surgery holding area. Her was with her at bedside and I saw her prior to her going for surgery. She denies any fever, chills. No blood in stool. No hematemesis. No fever. No chills. Denies any heartburn or indigestion problem. Allergies: TO PENICILLIN CAUSING HIVES, SULFA CAUSING RASH. Medications: Alprazolam 0.25 mg at bedtime as needed for sleep, Flonase nasal spray as needed for allergies, gabapentin 300 mg she takes 2 capsules 3 times a day, meloxicam 15 mg 1 tablet daily as needed for arthritis, methocarbamol 750 mg 1 tablet 3 times a day as needed for back pain, metoprolol succinate 100 mg takes half a tablet by mouth daily, Requip 0.25 mg daily at bedtime, Verapamil 240 mg extended release tablets 1 tablet by mouth daily. Review of Systems: GI: As mentioned above. All other systems reviewed and negative. Past Medical History: Significant for hypertension, hyperlipidemia, supraventricular tachycardia, osteoarthritis, insomnia, restless legs syndrome, impaired fasting glucose, peripheral neuropathy. Past Surgical History: Significant for . Family History: Father , had congestive heart failure. Mother , had leukemia and osteoarthritis. Brother , had liver cancer and heart disease. Sister had heart disease. Social History: Negative for smoking. Use of alcohol, occasional use of glass of wine. Physical Examination: Vital Signs: Height 5 feet 6 inches, weight 159 pounds. Temperature 98.5 when she first came to ER with pulse 73, respiratory rate 20, blood pressure 159/80, oxygen saturation 96%. General: Awake, alert, oriented, not in distress. HEENT: Head atraumatic, normocephalic. Conjunctivae nonerythematous. Sclerae white. Mouth, no thrush or edema noted. Ears/Nose, no mass, lesion, discharge noted. Neck: Supple. No JVD, lymph nodes, bruit, thyromegaly noted. Lungs: Bilateral good equal air entry. Clear to auscultation. No rhonchi. No rales. Heart: Normal heart sounds, no murmur or gallop. Abdomen: Soft. No guarding, rigidity. Presence of significant tenderness in the epigastric and right upper quadrant region. Bowel sounds are hypoactive. No distention. Extremities: No leg edema. No calf tenderness. Skin: No rash, ulcer, cellulitis. Lymphatics: No lymph node enlargement in neck, supraclavicular, infraclavicular region. Neuro: No focal neurological deficit. Chest: Unremarkable. External Genitalia: Deferred. Rectal: Deferred. Laboratory Data: White count 11.8, hemoglobin 13.6, platelets 379. Sodium 136, potassium 3.8, chloride 104, bicarb 26, BUN 16, creatinine 0.71, glucose 143. Liver function tests unremarkable. Lipase 159. Lactic acid 1.5. Troponin 6.2. Urinalysis normal. CAT scan findings discussed with Dr. Moreland and it has shown perforated duodenal ulcer. Impression: 1. Duodenal ulcer with perforation. 2. Hypertension. 3. Hyperlipidemia. 4. Supraventricular tachycardia. 5. Osteoarthritis, multiple sites. 6. Insomnia. 7. Restless legs syndrome. 8. Impaired fasting glucose. 9. Osteopenia. Plan: We will go ahead and admit the patient to hospital for further evaluation and management of this problem. The patient is appropriate for inpatient and is expected to spend 2 midnights in hospital. The patient will undergo surgery today and details were discussed with the patient's and the patient. SCD is in place for DVT prophylaxis. Empiric antibiotics, Cipro and metronidazole will be given. For blood pressure and SVT problem, we will use IV metoprolol as needed while she will be n.p.o. and then we will start oral medications at appropriate time. Her medications for restless leg and insomnia will be kept on hold at present time. The patient will receive IV Protonix and upon discharge from the hospital, she should stay on oral Protonix for a long time period now. She should not take any form of aspirin or nonsteroidal anti- inflammatory medications also. All these details were discussed with her. So, her meloxicam should be discontinued from now on. About 6 weeks from now, she should consider getting EGD and all these details will be discussed with her as well regarding elective EGD on outpatient basis. I will see her tomorrow for followup. The patient is planned for emergency surgery for this perforated duodenal ulcer. PAOLA/MODNathalia Voice ID: [id number] MTDD
[2022-02-26] MEDS ORDERED: NA CHLORIDE 0.9% 250 ML IV ONE (14:31)
[2022-02-26] MEDS: CIPROFLOXACIN 400mg IV 400 MG/200 ML BAG IV SCH (15:18)
[2022-02-27] MEDS: HYDROMORPHONE HCL 1 MG/ML INJ IV PRN ×5 (00:57→22:25)
[2022-02-27] MEDS: NA CHLORIDE 0.9% 1,000 ML IV SCH (04:18)
[2022-02-27] MEDS: METRONIDAZOLE 500mg IVPB 500 MG/100 ML BAG IV SCH ×4 (04:18→21:00)
[2022-02-27] MEDS: CIPROFLOXACIN 400mg IV 400 MG/200 ML BAG IV SCH ×2 (05:00→16:48)
[2022-02-27 05:27] LABS: Absolute Lymphocytes (CBC) 1.3 K/uL (0.7-4.9); Hematocrit 32.2 % (36.0-45.0); Lymphocytes % 11.2 % (15.3-44.8); MCV 96.3 fL (80-100); RBC Red Blood Cell Count 3.34 M/uL (3.86-4.86)
[2022-02-27 05:27] LABS: Phosphorus 2.2 mg/dL (2.5-4.9)
[2022-02-27 05:28] LABS: Potassium 4.7 mmol/L (3.5-5.1)
[2022-02-27 05:29] LABS: Magnesium 2.1 mg/dL (1.8-2.4)
[2022-02-27] MEDS: D5 0.9 NS 1,000 ML IV SCH ×3 (08:02→21:20)
[2022-02-27] MEDS: METOPROLOL TARTRATE 5 MG/5 ML INJ IV SCH ×2 (08:29→21:00)
[2022-02-27] MEDS: ENOXAPARIN 40 MG/0.4 ML SQ SCH (09:22)
[2022-02-27] MEDS: PANTOPRAZOLE INJ 80 MG in NA CHLORIDE 0.9% 250 ML IV SCH ×2 (11:19→21:00)
--- NOTE | 2022-02-27 11:31 | RAD REPORT ---
EXAM DESCRIPTION: CT - Angio Aorta For Dissection - 02/26/2022 6:35 am ADDENDUM #1 THIS REPORT CONTAINS FINDINGS THAT MAY BE CRITICAL TO PATIENT CARE: Called, telephoned, verbal repo rt was given oral to Dr. Logan Davis at 2:58 AM CERAMICS TEST ENGINEER on 02/26/2022. Electronically signed by: Markel Prince MD 02/26/2022 3:03 AM CERAMICS TEST ENGINEER End of Addendum EXAM DESCRIPTION: Angio Aorta For Dissection 02/26/2022 2:39 AM CERAMICS TEST ENGINEER CLINICAL HISTORY: 77 years, Female, epigastric pain COMPARISON: None. TECHNIQUE: Multiple transaxial tomograms from the thoracic and abdominal aorta from the lung apex to the ischial tuberosities performed after the administration of large bolus of IV contrast for comple te opacification of the thoracic, abdominal aorta and iliac arteries utilizing 3 mm slice thickness a t 3 mm interval reconstruction. 2-D and 3-D multiplanar reformats, volume rendering technique and maximum intensity projection images were generated and reviewed. This exam was performed according to our departmental dose-optimization protocol, which includes auto mated exposure control, adjustment of the mA and/or kV according to patient size and/or use of iterat birgit reconstruction technique. FINDINGS: Thoracic aorta: The thoracic aorta demonstrate minimal intimal calcification at the aortic arch. There is no evidence for dissection/or aneurysm. Great vessels demonstrate normal branching pattern with no evidence for significant stenosis/or occlusion along the proximal vessels. Abdominal aorta: The abdominal aorta demonstrate to be within normal limits. There is no evidence for aneurysm/or diss ection. Bilateral iliac arteries demonstrate to be within normal limits. There is no evidence for sig nificant stenosis/or occlusion. The celiac trunk, superior mesenteric artery and inferior mesenteric artery demonstrate to be patent with no evidence for significant stenosis and/or occlusion. There are dual supply of both renal arteries with no focal areas of significant stenosis. Chest: The lung parenchyma demonstrate to be within normal limits. There are dependent atelectatic ch anges lung bases. There is a calcified granuloma within the right hilum. The trachea mainstem bronchu s demonstrate to be unremarkable. There is no pleural/or pericardial effusions. The heart is normal i n size. There is no significant mediastinal and/or hilar lymphadenopathy. The axillary regions demons trate to be clear. The bone windows demonstrate no significant skeletal lesions. Abdomen and pelvis: The liver, gallbladder, spleen, adrenal glands, pancreas demonstrate to be unrema rkable. The kidneys demonstrate normal uptake of contrast media with no evidence for hydronephrosis/or nephro lithiasis. The unopacified stomach demonstrated presence of abnormal mucosal thickening along the antropyloric r egion of the stomach with focal area of abnormal mucosal thickening and enhancement with focal area o f the ulcer/perforation best demonstrated on axial image 115/209-111/209. There is free air within the anterior abdomen and subcapsular aspect of the liver and left hemidiaphr agm. The eighth small bowel and large bowel demonstrate to be within normal limits. There is small trace of free fluid within the posterior cul-de-sac.. The urinary bladder demonstrate to be within normal limits. The uterus is unremarkable. There are no retroperitoneal lymphadenopathy. The bone windows demonstrate to be within normal limits. IMPRESSION: Perforated gastric ulcer. Free air within the anterior abdomen and subcapsular aspect of the liver and left hemidiaphragm. Small trace of free fluid within the posterior cul-de-sac. Electronically signed by: Markel Prince MD 02/26/2022 2:47 AM CERAMICS TEST ENGINEER Due to temporary technical issues with the PACS/Fluency reporting system, reports are being signed by the in house radiologists without review as a courtesy to insure prompt reporting. The interpreting radiologist is fully responsible for the content of the report.
[2022-02-27] MEDS ORDERED: POTASSIUM PHOS IN 0.9 % NACL 15 MMOL/250 ML BAG IV ONE (12:00)
--- NOTE | 2022-02-27 12:14 | RAD REPORT ---
EXAM DESCRIPTION: RAD - Chest Single View - 02/26/2022 12:40 am CLINICAL HISTORY: 77 years, Female, COUGH COMPARISON: None. FINDINGS: Single view of the chest was obtained portable. No prior films are available for compariso n. The lung volume is slightly decreased. The cardiomediastinal silhouette demonstrate to be unremark able. The heart is not enlarged. The thoracic aorta is unremarkable. Minimal linear densities within the lung bases correspond to perhaps atelectasis. Pulmonary vasculature is normal distribution. Not p leural effusions. No focal areas of consolidations. The rest of the soft tissue and bony structures demonstrate to be unremarkable. IMPRESSION: Minimal linear densities within the lung bases correspond to perhaps atelectasis. No focal areas of acute airspace disease. Electronically signed by: Markel Prince MD 02/26/2022 12:54 AM SANE NURSE Due to temporary technical issues with the PACS/Fluency reporting system, reports are being signed by the in house radiologists without review as a courtesy to insure prompt reporting. The interpreting radiologist is fully responsible for the content of the report.
--- NOTE | 2022-02-27 12:19 | RAD REPORT ---
EXAM DESCRIPTION: US - Abdomen Exam Limited - 02/26/2022 12:37 am CLINICAL HISTORY: 77 years, Female, ABD PAIN COMPARISON: None. TECHNIQUE: Utilizing a curved array transducer, real-time ultrasound evaluation of the abdominal vis cera was performed. Color Doppler imaging was used to assess vascular flow. FINDINGS: The liver, pancreas and right kidney were not imaged. The gallbladder demonstrate to be within normal limits. No gallbladder stones were seen. No peric holecystic fluid and or wall thickening was identified. The common bile duct measures 4.1 mm. No evidence for significant free fluid within the upper abdomen. IMPRESSION: MARKEDLY LIMITED STUDY DEMONSTRATE NO SIGNIFICANT ABNORMALITIES OF THE COMMON BILE DUCT AND VISUALIZED PORTIONS OF THE GALLBLADDER. Electronically signed by: Markel Prince MD 02/26/2022 12:56 AM RISK ASSESSMENT ANALYST Due to temporary technical issues with the PACS/Fluency reporting system, reports are being signed by the in house radiologists without review as a courtesy to insure prompt reporting. The interpreting radiologist is fully responsible for the content of the report.
[2022-02-27] MEDS ORDERED: METOPROLOL TARTRATE 5 MG/5 ML INJ IV ONE ×2 (12:21→12:22)
[2022-02-27] MEDS ORDERED: VERAPAMIL HCL 120 MG TAB PO ONE (14:00)
--- NOTE | 2022-02-27 15:10 | EKG ---
Test Date: 2022-02-26 Test Time: 00:51:14 Electroplater: IVANNA MEASUREMENT RESULTS: Intervals: Rate: 68 UT: 180 QRSD: 72 QT: 408 QTc: 433 Oto: P: 82 UT: 180 QRS: 14 T: 5 INTERPRETIVE STATEMENTS: Normal sinus rhythm Normal ECG Compared to ECG 07/21/2020 21:06:25 Wide-QRS tachycardia no longer present Left ventricular hypertrophy no longer present Electronically Signed On 02-27-22 15:08:43 RECREATIONAL THERAPIST by Jesus Hamilton
[2022-02-27] MEDS ORDERED: ADENOSINE 6 MG/ 2ML VIAL IV ONE (16:02)
[2022-02-27] MEDS ORDERED: METOPROLOL TARTRATE 5 MG/5 ML INJ IV STA (16:07)
[2022-02-27] MEDS ORDERED: METOPROLOL TARTRATE 5 MG/5 ML INJ IV PRN (16:14)
--- NOTE | 2022-02-28 01:48 | PN ---
Date of Progress Note: 02/27/2022 Subjective: Patient was seen this morning for followup. She was lying in bed in ICU. No new compla ints or problems reported by her. Overnight, she had some episodes of SVT and atrial flutter, longes t episode was 4 seconds. Objective: Vital Signs: Reviewed. HEENT: Unremarkable. Lungs: Clear to auscultation. Heart: Sounds normal. Abdomen: Soft. Bowel sounds absent. No guarding, rigidity. Extremities: No leg edema. Laboratory Data: White count was 11.4, hemoglobin 10.7, platelets 270. Sodium 142, potassium 4.7, c hloride 112, bicarb 26, BUN 11, creatinine 0.47 glucose 116, phosphorus 2.2, magnesium 2.1. Impression: 1.Duodenal ulcer, status post surgery. 2.Supraventricular tachycardia. 3.Hypertension. Plan: Patient was transferred out of ICU to regular room this morning after I saw her. IV Lopressor was ordered. She received 1 dose of IV Lopressor in ICU this morning, and after she came to floor, the patient had couple of episodes of SVT with heart rate between 140 to 160. Blood pressure was sta ble and she was given 2 more doses of IV Lopressor and 1 dose of oral verapamil after getting okay fr om the surgeon to give oral medication. Cardiology consultation was requested from Dr. Hearn. We will continue SCD for DVT prophylaxis and I will see her tomorrow for followup. PAOLA/MODL Voice ID: [id number] Report ID: [id number]
[2022-02-28] MEDS: PANTOPRAZOLE INJ 80 MG in NA CHLORIDE 0.9% 250 ML IV SCH ×2 (01:50→07:00)
[2022-02-28] MEDS: METRONIDAZOLE 500mg IVPB 500 MG/100 ML BAG IV SCH ×4 (02:01→20:57)
[2022-02-28] MEDS: HYDROMORPHONE HCL 1 MG/ML INJ IV PRN ×2 (03:07→12:19)
[2022-02-28] MEDS: CIPROFLOXACIN 400mg IV 400 MG/200 ML BAG IV SCH ×2 (03:07→15:39)
[2022-02-28 03:58] LABS: Absolute Lymphocytes (CBC) 1.1 K/uL (0.7-4.9); Hematocrit 30.7 % (36.0-45.0); Lymphocytes % 8.8 % (15.3-44.8); MCV 95.5 fL (80-100); MPV 8.3 fL (7.6-11.3); RBC Red Blood Cell Count 3.22 M/uL (3.86-4.86)
[2022-02-28 04:14] LABS: Phosphorus 1.2 mg/dL (2.5-4.9)
[2022-02-28] MEDS: KCL 20 MEQ/100 mL IVPB 20 MEQ/100 ML BAG IV SCH ×2 (04:36→06:48)
[2022-02-28] MEDS: D5 0.9 NS 1,000 ML IV SCH ×2 (06:08→10:12)
--- NOTE | 2022-02-28 08:16 | RAD REPORT ---
EXAM DESCRIPTION: RAD - Chest Single View - 02/28/2022 7:37 am CLINICAL HISTORY: cough, rule out pneumonia Chest pain. COMPARISON: Chest Single View dated 02/26/2022; Chest Single View dated 07/21/2020; Chest Pa And Lat ( 2 Views) dated 05/11/2020; Chest Pa And Lat (2 Views) dated 04/24/2016 FINDINGS: Portable technique limits examination quality. The lungs are grossly clear. The heart is normal in size. No displaced fractures.Enteric tube descend s into the upper abdomen. IMPRESSION: No acute intrathoracic process suspected.
--- NOTE | 2022-02-28 08:23 | EKG ---
Test Date: 2022-02-27 Test Time: 12:32:20 Candle Molder Hand: BRANDON MEASUREMENT RESULTS: Intervals: Rate: 94 WV: 168 QRSD: 76 QT: 348 QTc: 435 [place]: P: 60 WV: 168 QRS: 4 T: -66 INTERPRETIVE STATEMENTS: Normal sinus rhythm Nonspecific ST and T wave abnormality Abnormal ECG Compared to ECG 02/26/2022 00:51:14 ST (T wave) deviation now present Electronically Signed On 02-28-22 08:20:02 SCREEN PRINTING MACHINE OPERATOR by David Hearn
[2022-02-28] MEDS ORDERED: POTASSIUM PHOS IN 0.9 % NACL 15 MMOL/250 ML BAG IV ONE (09:00)
[2022-02-28] MEDS: VERAPAMIL SR 240 MG TABLET PO SCH (09:10)
[2022-02-28] MEDS: ENOXAPARIN 40 MG/0.4 ML SQ SCH (09:10)
[2022-02-28] MEDS: METOPROLOL TARTRATE 5 MG/5 ML INJ IV SCH ×2 (09:11→20:58)
--- NOTE | 2022-02-28 10:41 | P.PN ---
Date of Service: 02/27/22 Subjective: Patient complaining of incisional pain. Patient without bowel movement or flatus. Patient without nausea or vomiting. Objective: Vitals stable, afebrile. Laboratory data reviewedwhite count is still slightly elevated. NG tube has 150 cc. Abdomen: Soft, nondistended, positive bowel sound--hypoactive, minimal incisio nal tenderness. Dressing is clean, dry and intact. Assessment: Status post exploratory laparotomy with Jeremy patch repair for perforated duodenal ulcer. Plan: Continue NG tube, IV fluids, proton pump inhibitors and IV antibiotics. Encourage ambulation with physical therapy, incentive spirometry and DVT prophylaxis. We will do an upper GI in 2 to 3 days prior to initiating p.o. diet. CC: Dr. Chang's office
--- NOTE | 2022-02-28 10:42 | P.PN ---
Date of Service: 02/28/22 Subjective: Patient states that the pain is better. Patient without bowel movement or flatus. Objective: Vitals stable, afebrile. Laboratory data reviewedwhite count is still slightly elevated. NG tube is slowly decreasing. Abdomen: Soft, nondistended, positive bowel sound--hypoactive, minimal incisional tenderness. Dressing is clean, dry and intact. Assessment: Status post exploratory laparotomy with Jeremy patch repair for perforated duodenal ulcer. Plan: Continue NG tube, IV fluids, proton pump inhibitors and IV antibiotics. Encourage ambulation with physical therapy, incentive spirometry and DVT prophylaxis. We will do an upper GI on . CC: Dr. Chang's office
[2022-02-28] MEDS: PANTOPRAZOLE 40 MG INJ IVP SCH ×2 (14:18→20:58)
[2022-02-28] MEDS: ALPRAZOLAM 0.25 MG TABLET PO SCH (21:37)
--- NOTE | 2022-03-01 00:51 | PN ---
Date of Progress Note: 02/28/2022 Subjective: Patient was seen this morning for followup. She reported that she did not sleep at all last night and requesting some sleeping medication tonight. Objective: Vital Signs: Reviewed. HEENT: Unremarkable. Lungs: Has some cough with chest congestion, but lung sounds clear to auscultation. Not using any a ccessory muscles of respiration. Heart: Sounds normal. Abdomen: Soft. Bowel sounds absent. No guarding. No rigidity. Extremities: No leg edema. Laboratory Data: White count 12.4, hemoglobin 10.3, platelets 267. Sodium 140, potassium 3, phospho anamika 1.2. Impression: 1.Perforated duodenal ulcer. 2.Supraventricular tachycardia. 3.Hypertension. 4.Hypokalemia. 5.Hypophosphatemia. 6.Anemia, unspecified. Plan: We will continue to follow up with Dr. Moreland. Continue verapamil and alprazolam for insomnia. Replace potassium and phosphorus per order. We will repeat blood work tomorrow. The patient to am bulate with physical therapy and I will see her tomorrow for followup. We will get a chest x-ray don e today. Continue current empiric antibiotics. PAOLA/MODL Voice ID: [id number] Report ID: [id number]
[2022-03-01] MEDS: D5 0.9 NS 1,000 ML IV SCH ×3 (01:26→17:44)
[2022-03-01] MEDS: METRONIDAZOLE 500mg IVPB 500 MG/100 ML BAG IV SCH ×4 (02:37→20:01)
[2022-03-01 03:51] LABS: Absolute Lymphocytes (CBC) 1.3 K/uL (0.7-4.9); Hematocrit 33.3 % (36.0-45.0); Lymphocytes % 11.2 % (15.3-44.8); MPV 8.3 fL (7.6-11.3); RBC Red Blood Cell Count 3.47 M/uL (3.86-4.86)
[2022-03-01 03:57] LABS: Magnesium 1.9 mg/dL (1.8-2.4); Phosphorus 2.3 mg/dL (2.5-4.9)
[2022-03-01] MEDS: CIPROFLOXACIN 400mg IV 400 MG/200 ML BAG IV SCH ×2 (04:13→15:33)
[2022-03-01] MEDS: KCL 20 MEQ/100 mL IVPB 20 MEQ/100 ML BAG IV SCH ×2 (04:15→06:48)
[2022-03-01] MEDS: HYDROMORPHONE HCL 1 MG/ML INJ IV PRN (04:44)
[2022-03-01] MEDS ORDERED: METOPROLOL TARTRATE 5 MG/5 ML INJ IV PRN (07:44)
[2022-03-01] MEDS: METOPROLOL TAR 50 MG TAB PO SCH ×2 (08:07→22:29)
[2022-03-01] MEDS: PANTOPRAZOLE 40 MG INJ IVP SCH ×2 (08:07→20:01)
[2022-03-01] MEDS: ENOXAPARIN 40 MG/0.4 ML SQ SCH (08:07)
[2022-03-01] MEDS: VERAPAMIL SR 240 MG TABLET PO SCH (08:08)
[2022-03-01] MEDS: GABAPENTIN 300 MG CAP PO SCH ×2 (08:19→22:29)
[2022-03-01] MEDS ORDERED: POTASSIUM PHOS IN 0.9 % NACL 15 MMOL/250 ML BAG IV ONE (09:00)
--- NOTE | 2022-03-01 10:19 | P.PN ---
Date of Service: 03/01/22 Subjective: Patient has no pain. NG tube put out 200 cc in the last shift. Patient has not passed gas or had a bowel movement Objective: Vitals stable, afebrile. Laboratory data reviewedwhite count is 11.8. Abdomen: Soft, nondistended, positive bowel sound--hypoactive, no tenderness. Dressing is clean, dry and intact. Assessment: Status post exploratory laparotomy with Jeremy patch repair for perforated duodenal ulcer. Plan: Continue NG tube, IV fluids, proton pump inhibitors and IV antibiotics. Encourage ambulation with physical therapy, incentive spirometry and DVT prophylaxis. We will do an upper GI on . Change dressings daily as ordered. Upper GI tomorrow with Gastrografin. CC: Dr. Chang's office
--- NOTE | 2022-03-01 19:01 | EKG ---
Test Date: 2022-03-01 Test Time: 00:05:06 Engine Emission Technician: [employer] MEASUREMENT RESULTS: Intervals: Rate: 135 MA: QRSD: 76 QT: 382 QTc: 573 [place]: P: 45 MA: QRS: -2 T: 246 INTERPRETIVE STATEMENTS: Atrial flutter with 2:1 AV conduction Left ventricular hypertrophy with repolarization abnormality Abnormal ECG Compared to ECG 02/27/2022 12:32:20 Left ventricular hypertrophy now present Early repolarization now present Sinus rhythm no longer present ST (T wave) deviation no longer present Electronically Signed On 03-01-22 19:00:26 INVENTORY MANAGEMENT SPECIALIST by David Hearn
[2022-03-01] MEDS: ONDANSETRON 4 MG/2 ML VIAL IV PRN (20:00)
[2022-03-01] MEDS: ALPRAZOLAM 0.25 MG TABLET PO SCH (22:28)
--- NOTE | 2022-03-02 01:36 | PN ---
Date of Progress Note: 03/01/2022 Subjective: Patient was seen this morning for followup. She did sleep very well last night after re ceiving alprazolam. During middle of the night, she did have episode of SVT/atrial fibrillation and nurse was advised to notify rib matcher and fitter this morning. Vital signs reviewed. The patient has not pa ssed any gas and no bowel movement yet. NG tube is in place draining greenish colored clear liquid. Objective: Vital Signs: Reviewed. HEENT: Unremarkable. Lungs: Clear to auscultation. No rhonchi. No rales. Heart: Sounds normal. Abdomen: Soft. Bowel sounds absent. No guarding. No rigidity. Extremities: No leg edema. Laboratory Data: White count 11.8, hemoglobin is 11, and platelet count 306. Sodium level 142, pota ssium 3, chloride 106, bicarb 28, BUN 5, creatinine 0.43, glucose 137, phosphorus 2.3, magnesium 1.9. Impression: 1.Perforated duodenal ulcer, status post surgery. 2.Hypokalemia. 3.Supraventricular tachycardia. 4.Insomnia. Plan: We will continue current medication. Continue verapamil 240 mg daily and continue alprazolam for insomnia. We have her on p.r.n. use for Lopressor, which she did receive last night. We will co ntinue that. Continue to follow with rib matcher and fitter and we will continue to follow up with general cielo Dr. Merly tiwari. Ambulation was encouraged. I will see her tomorrow for followup. Replace electrolytes per protocol. PAOLA/MODL Voice ID: [id number] Report ID: [id number]
[2022-03-02] MEDS: D5 0.9 NS 1,000 ML IV SCH ×2 (02:40→11:59)
[2022-03-02] MEDS: METRONIDAZOLE 500mg IVPB 500 MG/100 ML BAG IV SCH ×4 (03:18→21:27)
[2022-03-02] MEDS: CIPROFLOXACIN 400mg IV 400 MG/200 ML BAG IV SCH ×2 (04:07→17:22)
[2022-03-02] MEDS: ONDANSETRON 4 MG/2 ML VIAL IV PRN (05:44)
[2022-03-02 07:12] LABS: Absolute Lymphocytes (CBC) 1.3 K/uL (0.7-4.9); Hematocrit 34.5 % (36.0-45.0); Lymphocytes % 13.5 % (15.3-44.8); MCV 97.6 fL (80-100); MPV 7.9 fL (7.6-11.3); RBC Red Blood Cell Count 3.53 M/uL (3.86-4.86)
[2022-03-02 07:15] LABS: Albumin 2.5 g/dL (3.4-5.0); Bilirubin Total 0.4 mg/dL (0.2-1.0); Phosphorus 2.5 mg/dL (2.5-4.9); Potassium 3.2 mmol/L (3.5-5.1)
[2022-03-02] MEDS: VERAPAMIL SR 240 MG TABLET PO SCH (08:37)
[2022-03-02] MEDS: ENOXAPARIN 40 MG/0.4 ML SQ SCH (08:40)
[2022-03-02] MEDS: METOPROLOL TAR 50 MG TAB PO SCH ×2 (08:40→20:40)
[2022-03-02] MEDS: PANTOPRAZOLE 40 MG INJ IVP SCH ×2 (08:41→20:40)
[2022-03-02] MEDS: GABAPENTIN 300 MG CAP PO SCH ×2 (08:41→20:39)
[2022-03-02] MEDS ORDERED: ADENOSINE 6 MG/ 2ML VIAL IV ONE ×2 (09:20→09:27)
[2022-03-02] MEDS ORDERED: METOPROLOL TARTRATE 5 MG/5 ML INJ IV STA (09:32)
[2022-03-02] MEDS ORDERED: METOPROLOL TAR 50 MG TAB PO ONE (09:32)
--- NOTE | 2022-03-02 12:05 | RAD REPORT ---
EXAM DESCRIPTION: CT - Abdomen Wo Contrast CLINICAL HISTORY: Postsurgical perforated ulcer leak at the duodenum Abdominal pain COMPARISON: No comparisons TECHNIQUE All CT scans are performed using dose optimization technique as appropriate and may includ e automated exposure control or mA/KV adjustment according to patient size. FINDINGS: The patient was administered Gastrografin contrast into the stomach. Small right pleural effusion with atelectasis in both lung bases noted. The stomach and duodenal C-loop are well opacified with contrast. There is no evidence of contrast le akage seen. C-loop of the duodenum appears mildly edematous. No free fluid or free air seen in the abdomen. IMPRESSION: No evidence of contrast leakage from the stomach or duodenal C-loop. Dr. Moreland was notified.
--- NOTE | 2022-03-02 14:42 | CON ---
Date of Consultation: 02/27/2022 Reason For Consultation: Atrial fibrillation and supraventricular tachycardia. History Of Present Illness: Ms. Gracia is 77. Has a history of SVT, hypertension, chronic back todd n. Came in with perforated gastric ulcer, underwent surgery emergently. She has been n.p.o. with NG tube. She normally takes verapamil 240 mg daily and metoprolol 50 mg daily at home as well as gabap entin, but she has not had any further medication and this morning she has been having intermittent S VT and atrial fibrillation. She is being treated with IV metoprolol 5 mg every 12 hours. She is wesley rly asymptomatic when she has her SVT. She has had a negative cardiac workup in the past including e chos and stress test. Allergies: SHE IS ALLERGIC TO PENICILLIN AND SULFA. Review of Systems: Negative. Social History: Negative. Family History: Negative. Medications: Include IV metoprolol as needed, Protonix, Flagyl, and ciprofloxacin. Physical Examination: Vital Signs: Stable, afebrile. When I saw, she was back in sinus rhythm. HEENT: Negative. Neck: Supple with no bruit. Chest: Clear. Cardiac: Revealed a regular rhythm and rate. No murmurs, gallops, or rubs. Abdomen: Benign. Extremities: Revealed no clubbing, cyanosis, or edema. Diagnostic Data: Fairly unremarkable. EKG is normal at baseline. Impression And Plan: Recurrent supraventricular tachycardia and atrial fibrillation secondary to wit hdrawal from metoprolol and verapamil. She has also hypertension, status post gastric ulcer surgery, chronic back pain. She is on antibiotics, Protonix. I will increase her IV beta-blockers to every 2 hours p.r.n. 5 mg. We will resume her p.o. medication as soon as we can. I will discuss the case with Dr. Chang. CLARK/PIERCE Voice ID: [id number] Report ID: [id number]
--- NOTE | 2022-03-02 15:27 | PN ---
Ms. Gracia came in with a gastric ulcer, underwent surgery. She has been n.p.o. with NG tube. Cont inues to have intermittent SVT and atrial fibrillation. I do not recommend any anticoagulation. She has had a normal echo and stress test before. She has a low CHADS score. I will continue her IV be ta-blockers as needed, resume p.o. verapamil, resume p.o. metoprolol as soon as we can. No change in therapy for now. CLARK/PIERCE Voice ID: [id number] Report ID: [id number]
--- NOTE | 2022-03-02 16:29 | P.PN ---
Date of Service: 03/02/22 Subjective: Patient has no pain. Patient is passing gas. Objective: Vitals stable, afebrile. Laboratory data reviewedwhite count is normal. CT of the abdomen with Gastrografin does not show any evidence of a leak. Abdomen: Soft, nondistended, positive bowel sound, no tenderness. Dressing is clean, dry and intact. Assessment: Status post exploratory laparotomy with Jeremy patch repair for perforated duodenal ulcer. Plan: DC NG tube, clear liquid diet. Tomorrow morning we will let the patient have full liquids and if tolerated GI soft for lunch. Patient can be discharged home on Protonix and antibiotics for a week. Patient will need clearance from Dr. Higuera regarding SVT issues. Plan of care discussed with Dr. Chang and patient. CC: Dr. Chang's office
[2022-03-02] MEDS ORDERED: POTASSIUM CL SA 10 MEQ TAB PO ONE (22:01)
[2022-03-02] MEDS: ALPRAZOLAM 0.25 MG TABLET PO SCH (22:03)
--- NOTE | 2022-03-02 22:56 | PN ---
Date of Progress Note: 03/02/2022 Subjective: Patient was seen this morning for followup. No new complaints or problems reported by h er. She was lying in bed, not in any distress. She did sleep well last night. Objective: Vital Signs: Reviewed. HEENT: Unremarkable. Lungs: Clear to auscultation. Heart: Sounds normal. Abdomen: Soft. Bowel sounds absent. No guarding, rigidity, or tenderness. Extremities: No leg edema. Impression: 1.Duodenal ulcer, with perforation, status post surgery. 2.Supraventricular tachycardia. 3.Atrial fibrillation, paroxysmal. 4.Hypokalemia. Plan: We will go ahead and continue to replace electrolytes per protocol. Continue Lopressor and ve rapamil per order. Details were discussed with legal examiner this morning and Dr. Moreland, general surg ke. CAT scan of the abdomen was done today with a Gastrografin study. There was no evidence of any leakage and Dr. Moreland is planning to start her on clear liquid diet today with possibility of discha rge to go home either tomorrow or day after tomorrow depending on her condition. I will see her jessica rrow for followup. PAOLA/MODL Voice ID: [id number] Report ID: [id number]
[2022-03-03 01:01] VITALS: O2SAT 97
[2022-03-03] MEDS: METRONIDAZOLE 500mg IVPB 500 MG/100 ML BAG IV SCH ×2 (02:49→08:50)
[2022-03-03] MEDS: CIPROFLOXACIN 400mg IV 400 MG/200 ML BAG IV SCH (03:50)
[2022-03-03] MEDS: D5 0.9 NS 1,000 ML IV SCH (05:11)
[2022-03-03 06:37] LABS: Potassium 3.2 mmol/L (3.5-5.1)
[2022-03-03] MEDS ORDERED: POTASSIUM CL SA 10 MEQ TAB PO ONE (08:00)
[2022-03-03] MEDS: PANTOPRAZOLE 40 MG INJ IVP SCH (08:48)
[2022-03-03] MEDS: GABAPENTIN 300 MG CAP PO SCH (08:48)
[2022-03-03] MEDS: VERAPAMIL SR 240 MG TABLET PO SCH (08:49)
[2022-03-03] MEDS: METOPROLOL TAR 50 MG TAB PO SCH (08:49)
[2022-03-03] MEDS: ENOXAPARIN 40 MG/0.4 ML SQ SCH (08:50)
--- NOTE | 2022-03-03 10:24 | P.PN ---
Date of Service: 03/03/22 Subjective: Patient has no pain. Patient is passing gas. Patient is tolerating liquid diet. Objective: Vitals stable, afebrile. Abdomen: Soft, nondistended, positive bowel sound, no tenderness. Dressing is clean, dry and intact. Wound is clean, dry and intact. Assessment: Status post exploratory laparotomy with Jeremy patch repair for perforated duodenal ulcer. Plan: From a surgical standpoint, if patient tolerates GI soft diet, patient can be discharged home this afternoon. Patient needs to be discharged on Protonix t wice daily, Cipro and Flagyl for at least a week and follow-up with the GI physician Dr. Sandoval in 4 weeks. Patient will also follow-up with Dr. Higuera regarding her SVT. Discharge planning discussed in detail with the patient as well as Dr. Chang. We will remove every other staple prior to discharge.
[2022-03-03 12:30] VITALS: BP 107/58; TEMP 98.5
--- NOTE | 2022-03-04 08:45 | DS ---
Date of Discharge: 03/03/2022 Disposition: Patient will be discharged to go home. Physical Examination: HEENT: Unremarkable. Lungs: Clear to auscultation. Heart: Sounds normal. Abdomen: Soft. Bowel sounds normal. No guarding, rigidity, tenderness, distention. Extremities: No leg edema. Laboratory Data: Upon admission, white count 11.8, hemoglobin 13.6, platelets 379. Yesterday, white count 9.5, hemoglobin 11.4, platelet count 274. Chemistry today, sodium 140, potassium 3.2, chlorid e 106, bicarb 28, BUN 9, creatinine 0.38, glucose 121. Upon admission, sodium 136, potassium 3.8, ch loride 104, bicarb 26, BUN 16, creatinine 0.71, glucose 143. Liver function tests are unremarkable. Hospital Course: This is a 77-year-old pleasant female patient admitted to the hospital with abdomin al pain. Please see dictated H and P for more information. Patient was admitted to the hospital wit h perforated duodenal ulcer. After her admission, she was seen in consultation by Dr. Moreland who took her to surgery and postoperatively was brought back to medical floor. She remained n.p.o. with NG t ube to low intermittent suction. Empiric antibiotics, Cipro and metronidazole, were started upon adm ission and IV Protonix was started upon admission as well. She had low potassium and the potassium r eplacement protocol was used to replace her electrolytes. Her phosphorus was low, which was also cor rected with electrolyte replacement protocol. CAT scan of the abdomen was done yesterday with no dee dee dence of any leakage. No evidence of any bowel obstruction. Patient started to pass gas per rectum yesterday and now she has good normal bowel sounds. Today, she was started on diet per Dr. Moreland and he has released her to go home from a surgical point of view. Medically, she is stable for discharg e. During this hospitalization, she had frequent episodes of supraventricular tachycardia and also i ntermittent atrial fibrillation and initially we used IV Lopressor. Subsequently, we started her on oral verapamil and oral metoprolol. Cardiology consultation was requested from Dr. Hearn and at th is point, he has not recommended any anticoagulation therapy, but he has advised the patient to follo w up with him in about 2 weeks and he will perform outpatient Holter monitor on the patient. Heladio gates on her Holter monitor, he will decide whether she will need to consider any anticoagulation therap y or not. Patient was made aware of this recommendation and she will follow up with him week after n ext. Final Diagnoses: 1.Duodenal ulcer with perforation. 2.Hypokalemia. 3.Anemia, unspecified. 4.Supraventricular tachycardia. 5.Paroxysmal atrial fibrillation. 6.Hypertension. 7.Hyperlipidemia. 8.Osteoarthritis, multiple sites. 9.Insomnia. 10.Restless legs syndrome. 11.Impaired fasting glucose. 12.Osteopenia. Discharge Medications And Instructions: 1.Continue all prior home medication except stop meloxicam. 2.Take following new medications. 3.Cipro 500 mg 2 times a day for 1 week. 4.Metronidazole 500 mg 3 times a day for 1 week. 5.Omeprazole 40 mg 1 capsule by mouth daily 30 minutes before breakfast. 6.Follow up with my office week after next. 7.Follow with Dr. Moreland next week. 8.Use Tylenol 500 mg 4 times a day as needed for pain. 9.Use tramadol 1 tablet by mouth 4 times a day as needed for more intense pain and patient has this medication at home. When she needs refill, she will contact me. 10.Do not take any aspirin, Aleve, Motrin, ibuprofen, or naproxen type of medications. 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 PAOLA/MODL Voice ID: [id number] Report ID: [id number]
== END 2022-03-03 14:03 | disposition home or self-care (01) | DRG 330 ==
LOC: ER 22:42 → ERHOLD 02-26 04:44 → 3RD-ICU 02-26 11:10 → 4TH 02-27 09:03
PROVIDERS: ADMIT Internal Medicine; ATTEND Internal Medicine
PROC: 0DU907Z Supplement Duodenum with Autologous Tissue Substitute, Open Approach (ICD-10-PCS; principal; 2022-02-26 09:00)
DX: K26.5 Chronic or unspecified duodenal ulcer with perforation (principal); I47.1 Supraventricular tachycardia; I10 Essential (primary) hypertension; E78.5 Hyperlipidemia, unspecified; G62.9 Polyneuropathy, unspecified; G47.00 Insomnia, unspecified; G25.81 Restless legs syndrome; G89.29 Other chronic pain; M54.9 Dorsalgia, unspecified; M19.09 Primary osteoarthritis, other specified site; M85.80 Other specified disorders of bone density and structure, unspecified site; E87.6 Hypokalemia; E83.39 Other disorders of phosphorus metabolism; D64.9 Anemia, unspecified; I48.0 Paroxysmal atrial fibrillation; R73.01 Impaired fasting glucose; Z88.1 Allergy status to other antibiotic agents; Z88.0 Allergy status to penicillin; Z79.899 Other long term (current) drug therapy; Z20.822 Contact with and (suspected) exposure to COVID-19
CPT/HCPCS: 36415; 71045; 71275; 74150; 74175; 76705; 80048; 80053; 81003; 81015; 83605; 83690; 83735; 84100; 84132; 84484; 85025; 87811; 93005; 94010; 97116; 97161; 97530; 99285; C9113; J0153; J0744; J1170; J1650; J2250; J2405; J2710; J3010; J3480; J7030; J7042; J7050; J7120; Q9967

== ENCOUNTER 2022-07-04 13:36 | Emergency (ER) | payer OTHER ==
--- OUTSIDE RECORDS SUMMARY | 2022-07-04 13:40 | XMS REPORT | Continuity of Care Document ---
:1945 Author Organization [facility] Address [address] [place] [facility] [address] [place] [address] Care Team Providers Name Role Phone Maikel Mendez Attending Clinician Unavailable Jennifer Attending Clinician Unavailable Maikel Mendez Attending Clinician [phone] Lab, Adc Fam Pob I Attending Clinician Unavailable Vera Meyers MD Attending Clinician VERA MEYERS Attending Clinician Unavailable Doctor Unassigned, [place] Attending Clinician Unavailable Maikel Mendez Admitting Clinician Unavailable SANNA ROD Admitting Clinician Unavailable Jennifer Admitting Clinician Unavailable Payers Payer Name Policy Type Policy Number Effective Date Expiration Date Sourav SALAZAR (MEDICARE [id number] 2021 REPLACEMENT PPO) 00:00:00 Problems Condition Condition [...] Type Date Date Clinician Penicill DA Active CO HIVES/ LIP [facility] ins SWELLING 12-26 [place] 00:00: [facility]ope 00 dic [facility] Sulfa DA Active CO RASH [facility] (Sulfona 12-26 [place] mide 00:00: Orthope Antibiot 00 dic ics) Hospita l Penicill DA Active CO HIVES [facility] ins 08-10 [place] 00:00: Orthope 00 dic Hospita l Sulfa DA Active CO RASH [facility] (Sulfona 08-10 [place] [facility] 00:00: Orthope Antibiot 00 dic ics) Hospita l Penicill DA Active CO [facility] ins 07-22 [place] 00:00: Orthope 00 dic Hospita l Sulfa DA Active CO [facility] (Sulfona 07-22 [place] [facility] 00:00: Orthope Antibiot 00 dic ics) Hospita l Penicill DA Active CO HIVES [facility] ins 07-22 [place] 00:00: Orthope 00 dic Hospita l Sulfa DA Active CO RASH [facility] (Sulfona 07-22 [place] mide 00:00: [...] DA Active U U [facility] ins 08-10 [place] 00:00: Orthope 00 dic Hospita l No [...] DA Active U 2005- [facility] IN 10-12 [place] 00:00: Orthope 00 dic Hospita l SULFA DA Active U [facility] DRUGS 10-12 [place] 00:00: Orthope 00 dic Hospita l Social History Social Habit Start Date Stop Date Quantity Comments Source Exposure to Not sure [facility]-CoV-2 [facility] (event) [place] Tobacco use and 2016-05-10 2016-05-10 Never used Universit y of exposure 00:00:00 00:00:00 [facility] Alcohol intake 2016-05-10 2016-05-10 Current drinker Unive rsity of 00:00:00 00:00:00 of alcohol [facility] (finding) [place] Sex Assigned At [birth year] Universit y of 00:00:00 00:00:00 [facility] Smoking Status Start Date Stop Date Source Never smoker [facility] Medications Ordered Filled Start Stop Current [...] mg/gram) 00:00: INTRAVAGIN Jamil as cream 00 [facility] TIMES Branch WEEKLY ESTRACE 2015-04 Yes APPLY 2 Univers 0.01 % (0.1 1-04 GRAMS ity of mg/gram) 00:00: INTRAVAGIN Jamil as cream 00 [facility] TIMES Branch WEEKLY ESTRACE 2015-04 Yes APPLY 2 Univers 0.01 % (0.1 1-04 GRAMS ity of mg/gram) 00:00: INTRAVAGIN Jamil as cream 00 [facility] TIMES Branch WEEKLY losartan 25 2015-04 Yes 25mg Take 25 mg Univers mg tablet 1-03 by mouth ity of 00:00: daily. [address] metoprolol 2015-04 Yes 50mg Take 50 mg U nivers succinate 1-03 by mouth ity [place] XL 50 mg 24 [place]. [place] [address] [place] [address] losartan 25 2015-04 Yes 25mg Take 25 mg Univers mg tablet 1-03 by mouth ity of 00:00: daily. [address] metoprolol 2015-04 Yes 50mg Take 50 mg U nivers succinate 1-03 by mouth ity of XL 50 mg 24 [place]. [place] [address] [place] [address] losartan 25 2015-04 Yes 25mg Take 25 mg Univers mg tablet 1-03 by mouth ity of 00:00: daily. [address] metoprolol 2015-04 Yes 50mg Take 50 mg U nivers succinate 1-03 by mouth ity of XL 50 mg 24 [place]: [place]. [place] [address] [place] [address] losartan 25 2015-04 Yes 25mg Take 25 mg Univers mg tablet 1-03 by mouth ity of 00:00: daily. [address] metoprolol 2015-04 Yes 50mg Take 50 mg U nivers succinate 1-03 by mouth ity of XL 50 mg 24 [place]: [place]. [place] [address] [place] [address] doxycycline doxycycline 2012-04 No doxycyclin Marge hyclate [...] e at bedtime. at bedtime. at bedtime. alprazolam alprazolam No alprazolam Marge 0.25 mg 0.25 mg 0.25 mg Orthop e tablet TAKE tablet TAKE tablet dic 1 TABLET BY 1 TABLET BY TAKE 1 Sports MOUTH TWO MOUTH TWO TABLET BY Medicin TIMES A DAY TIMES A DAY MOUTH TWO e NEEDED NEEDED TIMES A FOR ANXIETY FOR ANXIETY DAY OR SLEEP OR SLEEP NEEDED FOR (DIAGNOSIS: (DIAGNOSIS: ANXIETY OR F41.1 AND F41.1 AND SLEEP F51.01) F51.01) (DIAGNOSIS : F41.1 AND F51.01) benzonatate benzonatate No benzonatat Marge 100 mg 100 mg e 100 mg Orthope capsule capsule capsule dic TAKE 1 TAKE 1 TAKE 1 Sports CAPSULE BY CAPSULE BY CAPSULE BY Medicin MOUTH FOUR MOUTH FOUR MOUTH FOUR e TIMES A DAY TIMES A DAY TIMES A NEEDED NEEDED DAY FOR COUGH FOR COUGH NEEDED FOR COUGH ciprofloxac ciprofloxac No ciprofloxa Marge in 500 mg in 500 mg ivonne 500 mg Orthope tablet tablet tablet dic Sports Medicin e Denta 5000 Denta 5000 No Denta 5000 Marge Plus 1.1 % Plus 1.1 % Plus 1.1 % Orthope cream cream cream dic FOLLOW FOLLOW FOLLOW Sports INSTRUCTION INSTRUCTION INSTRUCTIO Medicin S GIVEN S GIVEN NS GIVEN e famotidine famotidine No famotidine Marge 20 mg 20 mg 20 mg Orthope tablet TAKE tablet TAKE tablet dic 1 TABLET BY 1 TABLET BY TAKE 1 Sports MOUTH MOUTH TABLET BY Medicin EVERYDAY AT EVERYDAY AT MOUTH e BEDTIME BEDTIME EVERYDAY AT BEDTIME gabapentin gabapentin No gabapentin Amrge 300 mg 300 mg 300 mg Orthope capsule capsule capsule dic TAKE 3 TAKE 3 TAKE 3 Sports CAPSULES BY CAPSULES BY CAPSULES Medicin MOUTH 3 MOUTH 3 BY MOUTH 3 e TIMES A DAY TIMES A DAY TIMES A DAY methocarbam methocarbam No methocarba Marge ol 750 mg ol 750 mg mol 750 mg Orthope tablet TAKE tablet TAKE tablet dic 1 TABLET 1 TABLET TAKE 1 Sport s TID TID TABLET TID Medicin e metoprolol metoprolol No metoprolol Marge tartrate 50 tartrate 50 tartrate Orthope mg tablet mg tablet 50 mg dic TAKE 2 TAKE 2 tablet Sports TABLET BY TABLET BY TAKE 2 Med icin MOUTH MOUTH TABLET BY e DIRECTED AT DIRECTED AT MOUTH ONSET OF ONSET OF DIRECTED SVT SVT AT ONSET RHYTHMS. RHYTHMS. OF SVT RHYTHMS. omeprazole omeprazole No omeprazole Marge 40 mg 40 mg 40 mg Orthope capsule,del capsule,del capsule,de dic ayed ayed layed Sports release release release Medici n TAKE 1 TAKE 1 TAKE 1 e CAPSULE BY CAPSULE BY CAPSULE BY MOUTH EVERY MOUTH EVERY MOUTH MORNING MORNING EVERY MORNING Premarin Premarin No Premarin Aza camelia 0.625 [...] 1 INSTILL 1 e INSTILL Medicin DROP IN DROP IN 1 DROP IN e BOTH EYES 2 BOTH EYES 2 BOTH EYES TIMES A DAY TIMES A DAY 2 TIMES A DAY ropinirole ropinirole No ropinirole Marge 1 mg tablet 1 mg tablet 1 mg O rthope TAKE 1 TAKE 1 tablet dic TABLET BY TABLET BY TAKE 1 Spo rts MOUTH MOUTH TABLET BY Medicin EVERYDAY AT [...] MOUTH EVERY MOUTH DAY DAY EVERY DAY Vital Signs Vital Name Observation Time Observation Value Comments Source BP Diastolic 2022-06-22 00:00:00 69 mm[Hg] [facility] Height 2022-06-22 00:00:00 66 [in_i] [facility] BMI (Body Mass 2022-06-22 00:00:00 25 kg/m2 [facility] Index) Sports Medicine BP Systolic 2022-06-22 00:00:00 114 mm[Hg] [facility] Body Weight 2022-06-22 00:00:00 155 [lb_av] [facility] Height 2022-01-16 00:00:00 66 [in_i] [facility] BMI (Body Mass 2022-01-16 00:00:00 25.8 kg/m2 [facility] Index) Sports Medicine Body Weight 2022-01-16 00:00:00 160 [lb_av] [facility] Procedures Procedure Date / Time Performed Performing Clinician [facility] e MRI, lumbar spine, w/o 2022-06-22 00:00:00 Tulio edge Orthopedic contrast Sports Medicine ASSIGNMENT OF BENEFITS 2020-11-01 18:47:51 Doctor Unassigned, No [facility] Plan of Care Planned Activity Planned Date Details Comments Source Instructions [facility] Encounters Start End Encounter Admission Attending Care Care Encounter Source Date/Time Date/Time Type Type Clinicians Facility Department ID 2021-10-10 Inpatient KEIRY Stauffer PAIN [id number] [facility] 08:45:00 Maikel 41 [place] [facility] 2020-07-22 Inpatient KEIRY StaufferTO [id number] [facility] 08:39:26 Maikel 29 [place] [facility] 2022-06-22 2022-06-22 Outpatient FOG_Luo_Ran AOSM AOSM [id number] Marge 00:00:00 00:00:00 Vania [id number] Orthop e dic Sports Medicin e 2022-06-22 2022-06-22 Lesa AOSM [place] - Ortho [id number] Marge 00:00:00 00:00:00 Mallory Rob MANAGER EXPRESS: [address] FOG_Ofc dic [facility] [place], [place] [address] , Ph. [phone] 2022-06-21 2022-06-21 Outpatient FOG_Luo_Ran AOSM AOSM [id number] Marge 00:00:00 00:00:00 Vania [id number] Orthop e dic Sports Medicin e 2022-06-01 2022-06-01 Outpatient FOG_Luo_Ran AOSM AOSM [id number] Marge 00:00:00 00:00:00 Vania [id number] Orthop e dic Sports Medicin e 2022-01-20 2022-01-20 Outpatient FOG_Luo_Ran AOSM AOSM [id number] Marge 00:00:00 00:00:00 Vania [id number] Orthop e dic Sports Medicin e 2022-01-16 2022-01-16 Outpatient FOG_Luo_Ran AOSM AOSM [id number] Marge 00:00:00 00:00:00 Vania [id number] Orthop e dic Sports Medicin e 2022-01-16 2022-01-16 Lesa AOSM [place] - Ortho [id number] Marge 00:00:00 00:00:00 Mallory Rob MANAGER EXPRESS: [address] FOG[facility]Ofc dic [facility], [facility] [address] , Ph. [phone] 2022-01-11 2022-01-11 Outpatient FOG_Luo_Ran AOSM AOSM [id number] Marge 00:00:00 00:00:00 Vania [id number] Orthop e dic Sports Medicin e 2021-12-26 2021-12-26 Outpatient SEAN StaufferTO PAIN [id number] [facility] 08:40:00 08:40:00 Maikel [facility] 2021-12-26 2021-12-26 Outpatient FOG_Luo_Ran AOSM AOSM [id number] Marge 00:00:00 00:00:00 Vania [id number] Orthop e dic Sports Medicin e 2021-12-26 2021-12-26 Maikel Holman AOSM [place] - Ortho [id number] Marge 00:00:00 00:00:00 Mallory Mendez MD: [address] FOG_[place] dic [facility]_[place] [address] , Ph. 2021-12-26 2021-12-26 Outpatient IRINA Mendez [id number] 00:00:00 00:00:00 Maikel Holman [id number] 2021-12-22 2021-12-22 Outpatient FOG_Luo_Ran AOSM AOSM [id number] Marge 00:00:00 00:00:00 Vania [id number] Orthop e dic Sports Medicin e 2021-10-04 2021-10-04 Outpatient FOG_Luo_Ran AOSM AOSM [id number] Marge 10:15:00 10:15:00 Vania [id number] Orthop e dic Sports Medicin e 2021-08-10 2021-08-10 Outpatient SEAN StaufferTO PAIN [id number] [facility] 10:57:00 10:57:00 Maikel Marin [place] [facility] 2020-11-01 2020-11-01 Laboratory Lab, Adc Fam Pob I [facility] 1.2. [id number] Univers 13:48:12 14:08:12 Only [facility] 350.1.13.10 ity of [place] 4.2.7.2.686 Jamil as Professio [phone] Nm dical [facility] [address] [place] Office [address] One 2020-11-01 2020-11-01 Outpatient R LUIGI [facility] [id number] Univers 14:00:00 14:00:00 VERA ity [facility] 2020-11-01 2020-11-01 Letter Doctor BULL [id number] [id number] Univers 00:00:00 00:00:00 (Out) Unassigned, ANGELA 350.1.13.10 ity of [place] [facility] 4.2.7.2.686 Jamil as [phone] [facility] [address] [place] 2020-11-01 2020-11-01 Letter Doctor BULL 1.2.840.114 [id number] Univers 00:00:00 00:00:00 (Out) Unassigned, ANGELA 350.1.13.10 ity of [place] [facility] 4.2.7.2.686 Jamil as [phone] [facility] [address] [place] 2020-11-01 2020-11-01 Orders Doctor BULL 1.2.840.114 [id number] Univers 00:00:00 00:00:00 Only Unassigned, ANGELA 350.1.13.10 ity of [place] [facility] 4.2.7.2.686 Jamil as [phone] [address] Results Test Description Test Time Test Comments Results Result [facility] e Comments - XR FLUORO FOR 2021-12-26 SPINE INJ 20:48:00 [facility] : 1945 Sex: F Patient Name: MADINA MERIDA Unit No: [id number] EXAMS: CPT CODE: [id number] XR FLUORO FOR SPINE INJ 95873 THORACIC AND LUMBAR TRANSFORAMINAL INJECTION REFERRAL PHYSICIAN: [...] 1 Image: Image 2 Image: Image 3 [place] [facility] NAME: MADINA MERIDA [address] [facility] PHYS: Maikel Helms MD [place], [place] [address] : 1945 AGE: 76 SEX: F LOC: MosesCRUZ PHONE #: [phone] EXAM DATE: 12/26/2021 [place]US: [facility] [place] #: [phone] RAD #: D/C DT PAGE 1 Signed Report (CONTINUED) Patient Name: MADINA MERIDA Unit No: [id number] EXAMS: CPT CODE: [id number] XR FLUORO FOR SPINE INJ 58429 (Continued) Image: Image 4 at 2047 Reported and signed by: Maikel Mendze M.D. CC: Maikel Mendez MD Technologist: PATRICK MOSQUEDA RT(R) Transcribed D/ (2047) ArabellaVACasie [facility] NAME: MADINA MERIDA [address] [facility] PHYS: Maikel Helms MD [place], [place] [address] : 1945 AGE: 76 SEX: F LOC: MosesCRUZ PHONE #: [phone] EXAM DATE: 12/26/2021 STATUS: [facility] [place] #: [phone] RAD #: D/C DT PAGE 2 Signed Report Patient Name: MADINA MERIDA Unit No: [id number] EXAMS: CPT CODE: [id number] XR FLUORO FOR SPINE INJ 70168 (Continued) Orig Print D/T: S: 12/26/2021 (2050) [facility] [place] NAME: MADINA MERIDA [address] [facility] PHYS: Maikel Helms MD [place], [place] [address] : 1945 AGE: 76 SEX: F LOC: SHENG PHONE #: [phone] EXAM DATE: 12/26/2021 [place]US: [facility] [place] #: [phone] RAD #: D/C DT PAGE 3 Signed Report - XR FLUORO FOR 2021-08-10 SPINE INJ 18:59:00 [facility] : 1945 Sex: F Patient Name: MADINA MERIDA Unit No: [id number] EXAMS: CPT CODE: [id number] XR FLUORO FOR SPINE INJ 66154 THORACIC TRANSFORAMINAL INJECTION REFERRAL PHYSICIAN: None PREOPERATIVE [...] Image: Image 1 Image: Image 2 at 185 Reported and signed by: Maikel Mendez M.D. [facility] NAME: MADINA MERIDA [address] [facility] PHYS: Maikel Helms MD [place], [place] [address] : 1945 AGE: 76 SEX: F LOC: MosesCRUZ PHONE #: [phone] EXAM DATE: 08/10/2021 [place]US: [facility] [place] #: [phone] RAD #: D/C DT PAGE 1 Signed Report (CONTINUED) Patient Name: MADINA MERIDA Unit No: [id number] EXAMS: CPT CODE: [id number] XR FLUORO FOR SPINE INJ 47640 (Continued) CC: Maikel Mendez MD Technologist: PATRICK MOSQUEDA RT(R) Transcribed D/ (1858) tSHONA.[facility] NAME: MADINA MERIDALOW [address] [facility] PHYS: Maikel Helms MD [place], [place] [address] : 1945 AGE: 76 SEX: F LOC: YSergioCRUZ PHONE #: [phone] EXAM DATE: 08/10/2021 STATUS: [facility] [place] #: [phone] RAD #: D/C DT PAGE 2 Signed Report Patient Name: MADINA MERIDA Unit No: [id number] EXAMS: CPT CODE: [id number] XR FLUORO FOR SPINE INJ 85925 (Continued) Orig Print D/T: S: 08/10/2021 (1901) [place] [facility] [place] NAME: MADINA MERIDA [address] [facility] PHYS: Maikel Helms MD [place], [place] [address] : 1945 AGE: 76 SEX: F LOC: SHENG PHONE #: [phone] EXAM DATE: 08/10/2021 [place]US: [facility] [place] #: [phone] RAD #: D/C DT PAGE 3 Signed Report - XR FLUORO FOR 2020-08-02 SPINE INJ 20:08:00 [facility] : 1945 Sex: F Patient Name: MADINA MERIDA Unit No: [id number] Report Has Been Amended EXAMS: CPT CODE: [id number] XR FLUORO FOR SPINE INJ 19385 Addendum - 08/02/2020 SIGNED 08/02/2020 ADDENDUM: [id number] RAD/FLLOCSPI Correction: Procedures Performed: Fluoroscopically guided needle localization of the bilateral T5, bilateral T6 and bilateral T7 spinal nerves with transforaminal epidurograms and epidural injection of local anesthetic and steroid. at 2008 Reported and signed by: Maikel Mendez M.D. [...] corresponding pedicle base without paresthesias. Isovue-300 contrast [place] [facility] [place] NAME: MADINA MERIDA [address] [facility] PHYS: Maikel Helms MD [place], [place] [address] : 1945 AGE: 75 SEX: F LOC: SHENG PHONE #: [phone] EXAM DATE: 07/22/2020 STATUS: [facility] FAX #: [phone] RAD #: D/C DT PAGE 1 Signed Report (CONTINUED) Patient Name: MADINA MERIDA Unit No: [id number] Report Has Been Amended EXAMS: CPT CODE: [id number] XR FLUORO FOR SPINE INJ 70544 (Continued) 0.5 ml was injected incrementally with [...] CC: Technologist: Kailyn Chauhan(R) Transcribed D/ (2152) Julian [place] [facility] [place] NAME: MADINA MERIDA [address] [facility] PHYS: Maikel Helms MD [place], [place] [address] : 1945 AGE: 75 SEX: F LOC: YSergioCRUZ PHONE #: [phone] EXAM DATE: 07/22/2020 STATUS: [facility] FAX #: [phone] RAD #: D/C DT PAGE 2 Signed Report Patient Name: MADINA MERIDA Unit No: [id number] Report Has Been Amended EXAMS: CPT CODE: [id number] XR FLUORO FOR SPINE INJ 41941 (Continued) Orig Print D/T: S: 07/22/2020 (2155) [facility] NAME: MADINA MERIDA [address] [facility] PHYS: Maikel Helms MD [place], [place] [address] : 1945 AGE: 75 SEX: F LOC: YSergioCRUZ PHONE #: [phone] EXAM DATE: 07/22/2020 STATUS: [facility] FAX #: [phone] RAD #: D/C DT PAGE 3 Signed Report - XR FLUORO FOR 2020-07-22 SPINE INJ 21:53:00 [facility] : 1945 Sex: F Patient Name: MADINA MERIDA Unit No: [id number] EXAMS: CPT CODE: [id number] XR FLUORO FOR SPINE INJ 20235 THORACIC EPIRADICULAR INJECTION REFERRAL PHYSICIAN: None PREOPERATIVE [...] Image: Image 1 Image: Image 2 at 2153 Reported and signed by: Maikel Mendez M.D. [place] [facility] [place] NAME: MADINA MERIDA [address] [facility] PHYS: Maikel Helms MD [place] [address] : 1945 AGE: 75 SEX: F LOC: SHENG PHONE #: [phone] EXAM DATE: 07/22/2020 STATUS: REG [facility] FAX #: [phone] RAD #: D/C DT PAGE 1 Signed Report (CONTINUED) Patient Name: MADINA MERIDA Unit No: [id number] EXAMS: CPT CODE: [id number] XR FLUORO FOR SPINE INJ 13417 (Continued) CC: Technologist: Kailyn Chauhan(R) Transcribed D/ (2152) [facility] [place] NAME: MADINA MERIDA [address] [facility] PHYS: Maikel Helms MD [place] [address] : 1945 AGE: 75 SEX: F LOC: SHENG PHONE #: [phone] EXAM DATE: 07/22/2020 STATUS: REG [facility] FAX #: [phone] RAD #: D/C DT PAGE 2 Signed Report Patient Name: MADINA MERIDA Unit No: [id number] EXAMS: CPT CODE: [id number] XR FLUORO FOR SPINE INJ 82459 (Continued) Orig Print D/T: S: 07/22/2020 (2155) [place] [facility] [place] NAME: MADINA MERIDA [address] [facility] PHYS: Maikel Helms MD [place] [address] : 1945 AGE: 75 SEX: F LOC: SHENG PHONE #: [phone] EXAM DATE: 07/22/2020 STATUS: REG SD FAX #: [phone] RAD #: D/C DT PAGE 3 Signed Report - MRI L-SPINE W/O 2019-03-20 Patient Name: CONT 06:53:00 MADINA MERIDA Unit No: [id number] EXAMS: CPT CODE: [id number] MRI L-SPINE W/O CONT 35316 TECHNIQUE: Multiplanar, multisequence MRI examination performed of [...] M.D. Technologist: Tien Arora(R) Transcribed D/ (0653) [facility]: MADINA MERIDA [address] PHYS: Alfonzo Villalobos MD : 1945 AGE: 74 SEX: F [place], [place] [address] LOC: Y.MRI PHONE #: [phone] EXAM DATE: 03/19/2019 STATUS: [facility] CLI FAX #: [phone] RAD #: D/C DT PAGE 1 Signed Report Patient Name: MADINA MERIDA Unit No: [id number] EXAMS: CPT CODE: [id number] MRI L-SPINE W/O CONT 70633 (Continued) Orig Print D/T: S: 03/20/2019 (0656) [place] [facility] NAME: MADINA MERIDA [address] [facility] PHYS: Alfonzo Villalobos MD : 1945 AGE: 74 SEX: F [place], [place] [address] LOC: Y.MRI PHONE #: [phone] EXAM DATE: 03/19/2019 STATUS: [facility] CLI FAX #: [phone] RAD #: D/C DT PAGE 2 Signed Report
--- NOTE | 2022-07-04 14:01 | ER ---
Nurse's Notes [facility] [place] [facility] Name: Suzie Gracia Age: 77 yrs Sex: Female : 1945 Arrival Date: 07/04/2022 Time: 13:42 Bed Waiting Private MD: Braulio Chang Diagnosis: Assessment: 07/04 13:59 Reassessment: Registration stated patient left about 10 minutes ago, pt stated 'will vg1 just take my medicine and it should work' Provider notified. ED Course: 13:42 Patient arrived in ED. mr 13:42 Braulio Chang MD is Private Physician. mr 13:56 Jensen Barragan MD is Attending Physician. rn Administered Medications: No medications were administered Outcome: 14:00 Patient left the ED. vg1 Signatures: Misty Trammell Roman, MD MD rn Barby Fox RN RN vg1
== END 2022-07-04 14:00 | disposition left against medical advice (07) ==
LOC: ER 13:36
DX: Z02.9 Encounter for administrative examinations, unspecified (principal)

== ENCOUNTER 2024-03-23 10:58 | Inpatient (IN) | payer OTHER ==
--- OUTSIDE RECORDS SUMMARY | 2024-03-23 11:01 | XMS REPORT | Clinical Summary ---
Author Name Unknown Organization [facility] Address [address] [place] [address] Care Team Providers Care Dental Cream Maker Name Role Phone Braulio Chang MD Unavailable [phone] Tasia Azar MD Primary Care Provider [phone] Catrina De Los Santos MD Unavailable [phone] Allergies Active Allergy Reactions Criticality Noted Date Comments Penicillins Hives 10/12/2005 Other Reaction(s): facial swelling, hives, itching, hives, HIVES/ LIP SWELLING Sulfa (Sulfonamide Antibiotics) Itching,Rash Low 10/30/2012 Medications biotin 5,000 mcg chew Chew 1 tablet daily. Active cholecalciferol , vitamin D3, (VITAMIN D3) 2,000 units tab tablet Take 1 tablet (2,000 Units) by mouth daily. Active verapamiL (VERELAN) 240 MG 24 hr capsule Take 1 capsule (240 mg) by mouth at bedtime. Active famotidine (PEPCID) 40 mg tablet Take 1 tablet (40 mg) by mouth daily. Active gabapentin (NEURONTIN) 300 mg capsule Take 1 capsule (300 mg) by mouth every morning. Active metoprolol tartrate (LOPRESSOR) 50 mg tablet Take 1 tablet (50 mg) by mouth as needed. Active ascorbic acid, vitamin C, (VITAMIN C) 100 mg tablet Take 1 tablet (100 mg) by mouth daily. Active vit A/vit C/vit E/zinc/copper (ICAPS AREDS ORAL) Take 1 capsule by mouth daily. Active omeprazole (PriLOSEC) 40 MG capsule Take 1 capsule (40 mg) by mouth every morning before breakfast. Active cyanocobalamin (vitamin B-12) 100 mcg tablet Take 1 tablet (100 mcg) by mouth daily. Active rOPINIRole (REQUIP) 1 mg tablet Take 1 tablet (1 mg) by mouth daily. Active UNABLE TO FIND Med Name: Prune lax daily Active Xiidra 5 % ophthalmic solution Administer 1 drop to both eyes every 12 (twelve) hours. 3 Active methocarbamol (ROBAXIN) 750 mg tablet Take 1 tablet (750 mg) by mouth every 8 (eight) hours. 3 Active senna-docusate (SENOKOT-S) 8.6 mg-50 mg tabletIndicatio ns:Endometrium thickened Take 1 tablet by mouth twice daily. To prevent constipation. Hold for loose stools/diarrhea . 60 tablet 02/14/2023 1:16 PM CDT 3 Active metoprolol succinate (TOPROL XL) 100 mg 24 hr tablet Take 0.5 tablets (50 mg) by mouth daily. 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 03/30/2023 Travel after 03/24/2023 Surgical History Surgery Date Site/Laterality Comments COLONOSCOPY 04/16/2012 - 04/15/2013 STOMACH SURGERY peptic ulcer SECTION, CLASSIC x2: 1971, 1973 FL HYSTEROSCOPY BX ENDOMETRIUM&/POLYPC W/WO D&C 11/02/2022 Vagina /Midline Procedure: Diagnostic HYSTEROSCOPY; Surgeon: Tasia Azar MD; Location: MAIN OR; Service: [facility] - GYNECOLOGIC ONCOLOGY FL LAPS TOTAL HYSTERECT 250 GM/< W/RMVL TUBE/OVARY 02/13/2023 Abdomen/Bilateral Procedure: LAPAROSCOPY, SURGICAL, WITH TOTAL HYSTERECTOMY, WITH OR WITHOUT REMOVAL OF TUBE(S) AND/OR OVARY(S); Surgeon: Tasia Azar MD; Location: MAIN OR; Service: [facility] - GYNECOLOGIC ONCOLOGY FL CYSTO W/INSERT URETERAL STENT 02/13/2023 Genitalia/Right Procedure: CYSTOURETHROSCOPY WITH INSERTION OF INDWELLING URETERAL STENT; Surgeon: Tasia Azar MD; Location: MAIN OR; Service: [facility] - GYNECOLOGIC ONCOLOGY FL URETEROLYSIS W/WORPSG URETER RETROPERIT FIBROSIS 02/13/2023 Abdomen/Right Procedure: URETEROLYSIS, WITH OR WITHOUT REPOSITIONING OF URETER FOR RETROPERITONEAL FIBROSIS; Surgeon: Tasia Azar MD; Location: MAIN OR; Service: [facility] - GYNECOLOGIC ONCOLOGY Medical History Medical History Date Comments Hypertension Irregular heart beat Menopause Arthritis Supraventricular tachycardia Back pain chronic Family History Medical History Relation Name Comments Liver cancer Brother Maria Esther Lacey Leukemia Mother YZ Abhijit Relation Name Status Comments Brothrashaad Lacey Mother YZ Abhijit Social History Tobacco Use Types Packs/Day Years Used Date Smoking Tobacco: Never Smokeless Tobacco: Never Alcohol Use Standard Drinks/Week Comments Yes 4 (1 standard drink = 0.6 oz pur e alcohol) social drinker Comments No Sex and Gender Information Value Date Recorded Sex Assigned at Female 09/18/2022 9:46 PM CDT Legal Sex Female 3:02 PM CDT Gender Identity Female 09/18/2022 9:46 PM CDT Sexual Orientation Straight 09/18/2022 9: 46 PM CDT Obstetrics History Para Term AB IAB SAB Ectopic Multiple Livin g Live Births 2 2 Date Outcome GA Total Labor Labor/2nd/3rd Weight Sex Type Anes PTL Gricelda A1 A5 Name Clin Para Para Comments C/s x 2 Last Filed Vital Signs Vital Sign Reading Time Taken Comments Blood Pressure 114/66 03/30/2023 7:59 AM MDS NURSE Pulse 63 03/30/2023 7:59 AM MDS NURSE Temperature 36.7 C (98.1 F) 03/30/2023 7:59 AM CS T Respiratory Rate 16 03/30/2023 7:59 AM MDS NURSE Oxygen Saturation - - Inhaled Oxygen Concentration - - Weight - - Height - - Body Mass Index - - Plan of Treatment Health Maintenance Due Date Last Done Comments Pneumococcal Vaccine: 65+ Years (1 of 1 - PCV) 008 COVID-19 Vaccine ( - 2023- season) 2023 Influenza Vaccine (#1) 2023 [facility] [employer] MED[employer] PPO Advance Directives * Full Code (Latest Code Status on File) Date Activated Date Inactivated Comments 02/13/2023 6:31 PM 02/14/2023 3:48 PM * Full Code Date Activated Date Inactivated Comments 11/02/2022 8:24 AM 11/02/2022 12:31 PM Care Teams Dental Cream Maker Relationship Specialty Start Date End Date Braulio Chang MD [address] [place] [phone] [email or web address] PCP - External Referring Internal Medicine 09/08/22 Tasia Azar MD [address] [place] [phone] [email or web address] PCP - General Gynecological Oncology 09/13/22 Catrina De Los Santos MD [address] [id number] [email or web address] PCP - External Follow Up A Obstetrics/Gynecology 09/20/22
[2024-03-23 11:36] LABS: Absolute Basophils 0.1 K/uL (0-0.5); Absolute Eosinophils 0.3 K/uL (0-0.5); Absolute Lymphocytes (CBC) 1.9 K/uL (0.7-4.9); Absolute Monocytes 0.6 K/uL (0.1-1.3); Absolute Neutrophil 4.1 K/uL (1.8-8.0); Basophils % 0.9 % (0-1.3); Eosinophils % 3.8 % (0-4.4); Hematocrit 42.4 % (36.0-45.0); Hemoglobin 13.8 g/dL (12.0-15.0); Lymphocytes % 27.9 % (15.3-44.8); MCHC 32.6 g/dL (32.0-36.0); MCV 98.2 fL (80-100); MPV 8.7 fL (7.6-11.3); Monocytes % 8.1 % (3.3-12.3); Neutrophils % 59.3 % (41.7-73.7); Platelets 241 thou/uL (152-406); RBC Red Blood Cell Count 4.32 M/uL (3.86-4.86); Red Cell Distribution Width 14.3 % (12.1-15.2)
--- NOTE | 2024-03-23 11:39 | RAD REPORT ---
EXAMINATION: Hip Left 2 View CLINICAL INDICATION: Female, 79 years old. Fall;Pain COMPARISON: No prior exam. FINDINGS: Comminuted left intertrochanteric hip fracture. This is modestly displaced. No dislocation. IMPRESSION: Displaced left intertrochanteric hip fracture.
[2024-03-23 11:42] LABS: Protime INR 0.98
--- NOTE | 2024-03-23 11:42 | RAD REPORT ---
EXAM: Chest Single View HISTORY: Pre-op COMPARISON: 02/28/2022 FINDINGS: LUNGS/PLEURA: The lungs are clear. No pleural effusions or pneumothorax. No pulmonary edema. Hyperexp anded lungs. Nonspecific interstitial thickening. MEDIASTINUM: The mediastinal silhouette is within normal limits. CARDIAC: The cardiac silhouette is within normal limits. UPPER ABDOMEN: No significant abnormality. BONES: No acute fracture. LINES/TUBES/OTHER: N/A IMPRESSION: No definite evidence of acute cardiopulmonary disease.
[2024-03-23 11:57] LABS: ALT/SGPT 24 U/L (13-56); AST/SGOT 19 U/L (15-37); Albumin 3.8 g/dL (3.4-5.0); Alkaline Phosphatase 101 U/L (45-117); Anion Gap 12.9 mEq/L (5.0-15.0); BUN Blood Urea Nitrogen 24 mg/dL (7-18); Bicarbonate 23 mEq/L (21-32); Bilirubin Direct < 0.2 mg/dL (0-0.2); Bilirubin Indirect, Calculated 0.2 mg/dL (0.2-0.8); Bilirubin Total 0.4 mg/dL (0.2-1.0); Globulin 3.9 g/dL (2.3-3.5); Glomerular Filtration Rate 80 ml/min (=/>90); Glucose Level 135 mg/dL (74-106); Potassium 3.9 mEq/L (3.5-5.1); Protein, Total 7.7 g/dL (6.4-8.2); Sodium Level 136 mEq/L (136-145); Troponin High Sensitivity 5.2 pg/mL (<58.9)
--- NOTE | 2024-03-23 12:00 | EDPHYS ---
Physician Documentation [facility] Name: Suzie Gracia Age: 79 yrs Sex: Female : 1945 Arrival Date: 03/23/2024 Time: 10:58 Bed 2 Private MD: ED Physician Lisbet Sanz HPI: 03/23 11:06 This 79 yrs old Female presents to ER via Unassigned with complaints of Hip Injury - sp3 Left. 11:06 79-year-old female with history of hypertension, left knee replacement now presents to sp3 the ED with mechanical ground-level fall that occurred just prior to arrival where she slipped on a wet step getting into her vehicle. She denies any other injury including head injury, shoulder other extremity. brought patient to the ED for evaluation. Pain is isolated to the left hip. She denies any headache, head injury, neck pain, chest pain, back pain, other extremity pain, abdominal pain, vomiting, diarrhea, prodrome prior to the event, or any other signs or symptoms on ROS at this time.. Historical: - Allergies: 11:49 PENICILLINS; tm6 11:49 Sulfa (Sulfonamide Antibiotics); tm6 - PMHx: 11:49 chronic back pain; Hypertension; SVT; Gastroesophageal reflux disease; tm6 - PSHx: 11:49 section; Total abdominal hysterectomy; left knee replacement; tm6 - Immunization history: Last tetanus immunization: unknown. - Infectious Disease History:: Denies. - Social history:: Smoking status: Patient denies any tobacco usage or history of. ROS: 11:07 Constitutional: Negative for fever, chills, and weight loss, Eyes: Negative for injury, sp3 pain, redness, and discharge, Neck: Negative for injury, pain, and swelling, Cardiovascular: Negative for chest pain, palpitations, and edema, Respiratory: Negative for shortness of breath, cough, wheezing, and pleuritic chest pain, Abdomen/GI: Negative for abdominal pain, nausea, vomiting, diarrhea, and constipation, Back: Negative for injury and pain, Skin: Negative for injury, rash, and discoloration, Neuro: Negative for headache, weakness, numbness, tingling, and seizure, Psych: Negative for depression, anxiety, suicide ideation, homicidal ideation, and hallucinations, Allergy/Immunology: Negative for hives, rash, and allergies, Endocrine: Negative for neck swelling, polydipsia, polyuria, polyphagia, and marked weight changes, Hematologic/Lymphatic: Negative for swollen nodes, abnormal bleeding, and unusual bruising, 11:07 All other systems are negative, Exam: 11:11 Constitutional: This is a well developed, well nourished patient who is awake, alert, sp3 and in no acute distress. Head/Face: Normocephalic, atraumatic. Eyes: Pupils equal round and reactive to light, extra-ocular motions intact. Lids and lashes normal. Conjunctiva and sclera are non-icteric and not injected. Cornea within normal limits. Periorbital areas with no swelling, redness, or edema. Neck: Trachea midline, no thyromegaly or masses palpated, and no cervical lymphadenopathy. Supple, full range of motion without nuchal rigidity, or vertebral point tenderness. No Meningismus. Chest/axilla: Normal chest wall appearance and motion. Nontender with no deformity. No lesions are appreciated. Cardiovascular: Regular rate and rhythm with a normal S1 and S2. No gallops, murmurs, or rubs. Normal PMI, no JVD. No pulse deficits. Respiratory: Lungs have equal breath sounds bilaterally, clear to auscultation and percussion. No rales, rhonchi or wheezes noted. No increased work of breathing, no retractions or nasal flaring. Abdomen/GI: Soft, non-tender, with normal bowel sounds. No distension or tympany. No guarding or rebound. No evidence of tenderness throughout. Back: No spinal tenderness. No costovertebral tenderness. Full range of motion. Skin: Warm, dry with normal turgor. Normal color with no rashes, no lesions, and no evidence of cellulitis. Neuro: Awake and alert, GCS 15, oriented to person, place, time, and situation. Cranial nerves II-XII grossly intact. Motor strength 5/5 in all extremities. Sensory grossly intact. Cerebellar exam normal. Normal gait. Psych: Awake, alert, with orientation to person, place and time. Behavior, mood, and affect are within normal limits. 11:11 Musculoskeletal/extremity: Left hip pain with shortening and external rotation noted.. 12:45 ECG was reviewed by the Attending Physician. EKG demonstrates normal sinus rhythm at 60 sp3 bpm with a first-degree AV block with KS interval of 58, normal axis, normal QRS, normal ST/T segments without evidence of acute ischemia. Vital Signs: 11:06 BP 140 / 64; Pulse 78; Pulse Ox 99% on R/A; Pain 3/10; em1 11:52 BP 140 / 83; Pulse 63; Resp 13; Temp 98.1(O); Pulse Ox 95% on R/A; MAP 101 mmHg; Weight tm6 72.57 kg; Height 5 ft. 6 in. ; Pain 2/10; 13:20 BP 112 / 53; Pulse 60; Resp 13; Temp 98.1; Pulse Ox 99% on R/A; MAP 71 mmHg; Pain 2/10; tm6 14:11 BP 105 / 64; Pulse 62; Resp 14; Temp 98.1; Pulse Ox 98% on R/A; MAP 77 mmHg; Pain 2/10; tm6 11:52 Body Mass Index 25.82 (72.57 kg, 167.64 cm) tm6 11:06 Pain Scale: Adult em1 11:52 Pain Scale: Adult tm6 13:20 Pain Scale: Adult tm6 14:11 Pain Scale: Adult tm6 Baudilio Coma Score: 11:00 Eye Response: spontaneous(4). Motor Response: obeys commands(6). Verbal Response: tm6 oriented(5). Total: 15. Trauma Score (Adult): 11:00 Eye Response: spontaneous(1); Verbal Response: oriented(1); Motor Response: obeys tm6 commands(2); Systolic BP: > 89 mm Hg(4); Respiratory Rate: 10 to 29 per min(4); Butte Score: 15; Trauma Score: 12 MDM: 11:00 Medical Screening Exam initiated sp3 11:11 Data reviewed: vital signs, nurses notes, lab test result(s), EKG, radiologic studies. sp3 ED course: 79-year-old female with mechanical fall with probable left hip fracture versus other fracture. X-rays and preop workup pending.. 11:58 ED course: Left intertrochanteric hip fracture noted. Discussed with Dr. Negro. sp3 Labs within normal limits. Will admit to Dr. Chang.. 03/23 11:01 Order name: Basic Metabolic Panel; Complete Time: 11:58 sp3 03/23 11:01 Order name: CBC with Diff; Complete Time: 11:58 sp3 12 11:01 Order name: LFT's; Complete Time: 11:58 sp3 12 11:01 Order name: PT-INR; Complete Time: 11:58 sp3 12 11:01 Order name: Troponin HS; Complete Time: 11:58 sp3 12 11:01 Order name: XRAY Chest (1 view); Complete Time: 11:58 sp3 12 11:01 Order name: Hip Left 2 View XRAY; Complete Time: 11:58 sp3 12 11:01 Order name: EKG; Complete Time: 11:01 sp3 03/23 12:10 Order name: CONS Physician Consult EDAR 03/23 11:01 Order name: NPO; Complete Time: 11:08 sp3 12 11:01 Order name: EKG - Nurse/Tech; Complete Time: 12:44 sp3 03/23 11:01 Order name: IV Saline Lock; Complete Time: 11:30 sp3 03/23 11:01 Order name: Labs collected and sent; Complete Time: 11:30 sp3 03/23 11:01 Order name: Pulse Ox Monitoring; Complete Time: 11:08 sp3 Administered Medications: 12:31 Drug: Ativan IVP 1 mg IVP once Route: IVP; Site: right hand; tm6 13:19 Follow up: Response: No adverse reaction tm6 14:12 Not Given (Patient Refused): morphineor iv 4 mg IVP once over 4 mins tm6 14:12 Not Given (Patient Refused): ondansetron 4 mg IVP once; over 2 minutes tm6 Disposition Summary: 03/23/24 12:00 Hospitalization Ordered Notes: Hospitalization Status: Inpatient Admission sp3 Provider: Braulio Chang sp3 Location: Telemetry/MedSurg (Inpatient) sp3 Condition: Stable sp3 Problem: an acute exacerbation sp3 Symptoms: have worsened sp3 Bed/Room Type: Standard sp3 Room Assignment: 206(03/23/24 12:26) eb Diagnosis - Left hip intertrochanteric fracture sp3 Forms: - Medication Reconciliation Form sp3 - SBAR form sp3 - Leadership Thank You Letter sp3 Signatures: Dispatcher [employer] EDAR Kimberly Ordoñez Setul, MD MD sp3 Isaiah Nails RN RN tm6 Corrections: (The following items were deleted from the chart) : 12:00 jayy shrestha
--- NOTE | 2024-03-23 12:00 | ER ---
Nurse's Notes [facility] Name: Suzie Gracia Age: 79 yrs Sex: Female : 1945 Arrival Date: 03/23/2024 Time: 10:58 Bed 2 Private MD: Diagnosis: Left hip intertrochanteric fracture Presentation: 03/23 11:00 Chief complaint: Patient states: fell when getting into the car, foot slipped on the tm6 running board, fell onto concrete. Left hip in pain. No LOC, not on blood thinners. Care prior to arrival: None. Mechanism of Injury: Fall car running board. Trauma event details:. 11:00 Acuity: DWIGHT 3 tm6 11:00 Method Of Arrival: Carried tm6 11:48 Coronavirus screen: Client denies travel out of the [place] in the last 14 days. Ebola tm6 Screen: Patient negative for fever greater than or equal to 101.5 degrees Fahrenheit, and additional compatible Ebola Virus Disease symptoms Patient denies exposure to infectious person. Patient denies travel to an Ebola-affected area in the 21 days before illness onset. No symptoms or risks identified at this time. Initial Sepsis Screen: Does the patient meet any 2 criteria? No. Patient's initial sepsis screen is negative. Does the patient have a suspected source of infection? No. Patient's initial sepsis screen is negative. Risk Assessment: Do you want to hurt yourself or someone else? Patient reports no desire to harm self or others. Onset of symptoms was March 23, 2024. Triage Assessment: 11:49 General: Appears in no apparent distress. uncomfortable, Behavior is calm, cooperative. tm6 Pain: Complains of pain in left hip Pain currently is 2 out of 10 on a pain scale. Quality of pain is described as aching. EENT: No signs and/or symptoms were reported regarding the EENT system. Neuro: Level of Consciousness is awake, alert, obeys commands, Oriented to person, place, time, situation. Cardiovascular: Patient's skin is warm and dry. Respiratory: Airway is patent Respiratory effort is even, unlabored, Respiratory pattern is regular, symmetrical. GI: No signs and/or symptoms were reported involving the gastrointestinal system. Abdomen is flat, non-distended. : No signs and/or symptoms were reported regarding the genitourinary system. Derm: No signs and/or symptoms reported regarding the dermatologic system. Musculoskeletal: Reports pain in left hip Pain is 2 out of 10 on a pain scale. Historical: - Allergies: 11:49 PENICILLINS; tm6 11:49 Sulfa (Sulfonamide Antibiotics); tm6 - PMHx: 11:49 chronic back pain; Hypertension; SVT; Gastroesophageal reflux disease; tm6 - PSHx: 11:49 section; Total abdominal hysterectomy; left knee replacement; tm6 - Immunization history: Last tetanus immunization: unknown. - Infectious Disease History:: Denies. - Social history:: Smoking status: Patient denies any tobacco usage or history of. Screenin:00 Abuse screen: Denies threats or abuse. Denies injuries from another. Tuberculosis tm6 screening: No symptoms or risk factors identified. 11:50 [facility] ED Fall Risk Assessment (Adult) History of falling in the last 3 months, tm6 including since admission Yes- single mechanical fall (1 pt) Confusion or Disorientation Intoxicated or Sedated No (0 pts) Impaired Gait Yes (1 pt) Mobility Assist Device Used No (0 pt) Altered Elimination No (0 pt) Score/Fall Risk Level 0 - 2 = Low Risk Oriented to surroundings, Maintained a safe environment, Educated pt \T\ family on fall prevention, incl call for assistance when getting out of bed. Nutritional screening: No deficits noted. Primary Survey: 11:00 NO uncontrolled hemorrhage observed. A: The client is awake and alert. The airway is tm6 patent. The client is alert. Airway: patent, No supplemental oxygen in use on arrival. Oral cavity: clear, Trachea midline. Breathing/Chest: Spontaneous respiratory effort, equal unlabored respirations, breath sounds clear bilaterally, regular pattern, symmetrical chest rise and fall. Circulation: No external hemorrhage present. Regular and strong central pulse, skin warm/dry/normal color. Disability Pupils are equal, round, reactive to light and accommodation. Client is alert. Exposure/Environment: All clothing and personal items were removed. There is no evidence of uncontrolled external bleeding. Obvious injury(ies) are noted at this time: left hip A warming method has been applied: A warm blanket has been provided to the patient. Reassessment Alertness and Airway: Awake and alert. The airway is patent. Breathing: Spontaneous respiratory effort, equal unlabored respirations, breath sounds clear bilaterally, regular pattern with symmetrical chest rise and fall. Circulation: No external hemorrhage noted. Regular and strong central pulse, skin warm/dry/normal color. Disability: Pupils Pupils are equal, round, reactive to light and accomodation. Alert. Assessment: 11:00 General: Appears in no apparent distress. uncomfortable, Behavior is calm, cooperative. tm6 Pain: Complains of pain in left hip Pain currently is 2 out of 10 on a pain scale. Quality of pain is described as aching, Pain began. Neuro: Level of Consciousness is awake, alert, obeys commands, Oriented to person, place, time, situation. EENT: No signs and/or symptoms were reported regarding the EENT system. Cardiovascular: Patient's skin is warm and dry. Respiratory: Airway is patent Respiratory effort is even, unlabored, Respiratory pattern is regular, symmetrical. GI: Abdomen is flat, non-distended. : No signs and/or symptoms were reported regarding the genitourinary system. Derm: No signs and/or symptoms reported regarding the dermatologic system. Musculoskeletal: Range of motion: limited in left hip Bony deformity noted of left hip Reports pain in left hip Pain is 2 out of 10 on a pain scale. 13:24 Reassessment: Patient and/or family updated on plan of care and expected duration. Pain tm6 level reassessed. Patient is alert, oriented x 3, equal unlabored respirations, skin warm/dry/pink. report faxed to [facility], confirmed by Mini. Vital Signs: 11:06 BP 140 / 64; Pulse 78; Pulse Ox 99% on R/A; Pain 3/10; em1 11:52 BP 140 / 83; Pulse 63; Resp 13; Temp 98.1(O); Pulse Ox 95% on R/A; MAP 101 mmHg; Weight tm6 72.57 kg; Height 5 ft. 6 in. ; Pain 2/10; 13:20 BP 112 / 53; Pulse 60; Resp 13; Temp 98.1; Pulse Ox 99% on R/A; MAP 71 mmHg; Pain 2/10; tm6 14:11 BP 105 / 64; Pulse 62; Resp 14; Temp 98.1; Pulse Ox 98% on R/A; MAP 77 mmHg; Pain 2/10; tm6 11:52 Body Mass Index 25.82 (72.57 kg, 167.64 cm) tm6 11:06 Pain Scale: Adult em1 11:52 Pain Scale: Adult tm6 13:20 Pain Scale: Adult tm6 14:11 Pain Scale: Adult tm6 Baudilio Coma Score: 11:00 Eye Response: spontaneous(4). Motor Response: obeys commands(6). Verbal Response: tm6 oriented(5). Total: 15. Trauma Score (Adult): 11:00 Eye Response: spontaneous(1); Verbal Response: oriented(1); Motor Response: obeys tm6 commands(2); Systolic BP: > 89 mm Hg(4); Respiratory Rate: 10 to 29 per min(4); Pollok Score: 15; Trauma Score: 12 ED Course: 10:59 Patient arrived in ED. ra3 10:59 Lisbet Sanz MD is Attending Physician. sp3 11:00 Patient maintains SpO2 saturation greater than 95% on room air. tm6 11:00 Thermoregulation: warm blanket given to patient. tm6 11:04 Patient has correct armband on for positive identification. Placed in gown. Bed in low mb4 position. Call light in reach. Side rails up X 1. Warm blanket given. Assisted with dressing. Removed wet clothing and placed into a gown. 11:20 XRAY Chest (1 view) In Process Unspecified. EDMS 11:20 Hip Left 2 View XRAY In Process Unspecified. EDMS 11:20 Isaiah Nails, RN is Primary Nurse. tm6 11:30 Basic Metabolic Panel Sent. em1 11:30 CBC with Diff Sent. em1 11:30 LFT's Sent. em1 11:30 PT-INR Sent. em1 11:30 Initial lab(s) drawn, by pr, sent to lab. Inserted saline lock: 20 gauge in right em1 wrist, using aseptic technique. Blood collected. Flushed with 10 mL NS. 11:44 Triage completed. tm6 11:49 Arm band placed on right wrist. tm6 11:50 Provided Education on: use of call ackerman. Client placed on continuous cardiac and pulse tm6 oximetry monitoring. NIBP monitoring applied. radiation monitor on. Pulse ox on. NIBP on. 12:00 Braulio Chang MD is Hospitalizing Provider. sp3 14:11 No provider procedures requiring assistance completed. Patient admitted, IV remains in tm6 place. Administered Medications: 12:31 Drug: Ativan IVP 1 mg IVP once Route: IVP; Site: right hand; tm6 13:19 Follow up: Response: No adverse reaction tm6 14:12 Not Given (Patient Refused): morphineor iv 4 mg IVP once over 4 mins tm6 14:12 Not Given (Patient Refused): ondansetron 4 mg IVP once; over 2 minutes tm6 Medication: 11:50 VIS not applicable for this client. tm6 Intake: 11:00 PO: 0ml; Total: 0ml. tm6 Outcome: 12:00 Decision to Hospitalize by Provider. sp3 14:11 Admitted to Med/surg accompanied by tech, via stretcher, room 206, with chart, tm6 14:11 Condition: stable 14:11 Instructed on the need for admit, 14:12 Patient left the ED. tm6 Signatures: Dispatcher [employer] EDGavino Gottlieb em1 Shawna Douglass mb4 Lisbet Sanz MD MD sp3 Isaiah Nails RN RN tm6 Micki Rhodes ra3
[2024-03-23] MEDS ORDERED: LORazepam 2 MG/ML VIAL ONE (12:09)
[2024-03-23] MEDS ORDERED: ONDANSETRON 4 MG/2 ML VIAL IV PRN (15:24)
[2024-03-23] MEDS ORDERED: ACETAMINOPHEN 325 MG TABLET PO PRN (15:24)
[2024-03-23] MEDS: MORPHINE 2 MG/ML SYR IV PRN (15:37)
[2024-03-23 15:57] VITALS: BMI 26.6
[2024-03-23] MEDS: METOPROLOL XL 50 MG TAB PO SCH (17:21)
--- NOTE | 2024-03-23 19:58 | CON ---
Date of Consultation: 03/23/2024 History Of Present Illness: This is my first time seeing this patient to my knowledge. She is an 79 -year-old female who unfortunately fell earlier today, injuring her left lower extremity. She was se en in the emergency department. She was ruled out for other injuries. However, x-rays showed a comm inuted proximal femur fracture consistent with an intertrochanteric fracture with lesser trochanteric extension. Physical Examination: She denies any other injury. She does have pain with any movement or manipulation of the left hip. She does not have any pain or crepitation with palpation of any of the other long bones or joints. Imaging: Review of the x-ray does demonstrate a complex intertrochanteric fracture. Assessment: 79-year-old female now with an isolated left intertrochanteric fracture with subtrochant alix extension. Plan: At this time, we will plan on her being seen by her primary care physician as the hospitalist and NPO after midnight for presumed scheduled surgery tomorrow. Most likely, will be cleared without further issues. Risks, benefits, and alternatives of this procedure had been discussed with her. S he states she understands things as presented as well as her family. All of her questions otherwise had been answered. /PIERCE Voice ID: [id number] Report ID: [id number]
[2024-03-23] MEDS: FAMOTIDINE 20 MG TAB PO SCH (20:19)
[2024-03-23] MEDS: ROPINIROLE HCL 1 MG TAB PO SCH (20:20)
[2024-03-23] MEDS: GABAPENTIN 300 MG CAP PO SCH (20:20)
[2024-03-23] MEDS: ROSUVASTATIN 5 MG TAB PO SCH (20:20)
--- NOTE | 2024-03-23 22:58 | HP ---
Date of Admission: 03/23/2024 Chief Complaint: Fall and hip pain. History Of Present Illness: This is an 79-year-old pleasant female patient who lives at home with he r , was in her driveway trying to get in her [place] and says that as she stepped her foot on a running board, it flipped and she fell on the concrete surface and immediately started complaining of pain and she realized that she had hip fracture. She was not able to get up on her own. Her hus band actually managed to help her somehow and brought her in private vehicle to our emergency room, a nd after she was evaluated she was admitted to the hospital with hip fracture. She denies any head i njury or injury anywhere else. After she was evaluated in the emergency room, Orthopedic consultatio n from Dr. Negro was requested and I did communicate with him as well, and he is planning to do s urgery tomorrow. I did come out to emergency room to evaluate the patient, and her was prese nt with her at bedside. Allergies: PENICILLIN CAUSING HIVES, SULFA CAUSING RASH. Medications: Alprazolam 0.25 mg 2 times a day as needed either for anxiety or sleep; Caltrate Plus D 1 tablet 2 times a day; estrogen vaginal cream 2 times a week; famotidine 20 mg daily at bedtime; ga bapentin 300 mg; hydrochlorothiazide 12.5 mg daily as needed for leg swelling; metoprolol XL 50 mg da doc in the evening; verapamil 240 mg plus 120 mg, so total dose is 360 mg daily in morning and the tala mancera reports that her unemployment inspector recently added this 120 mg dose; omeprazole 40 mg daily in mornin g; ropinirole 1 mg 2 times a day, rosuvastatin 5 mg daily at bedtime. Review of Systems: Musculoskeletal: As mentioned above. All other systems reviewed and negative. Past Medical History: Significant for leg edema, hypertension, anxiety, insomnia, hyperlipidemia, im paired fasting glucose, supraventricular tachycardia, osteoarthritis at multiple sites, osteopenia, h istory of duodenal ulcer, anemia, peripheral neuropathy. Past Surgical History: Significant for surgery on her ureter in the form of ureteroplasty, , hysterectomy for postmenopausal bleeding on February 13, 2023. Family History: Father , had congestive heart failure. Mother , had leukemia. Brother , had liver cancer and heart disease. Sister , had heart disease. Social History: Negative for smoking. Use of alcohol. Occasional glass of wine. Physical Examination: Vital Signs: When she came into emergency room, blood pressure 126/80, pulse 64, respiratory rate 17 , oxygen saturation 96%. Her height 66 inches. General: Awake, alert, oriented, not in distress. HEENT: Head atraumatic, normocephalic. Conjunctivae nonerythematous. Sclerae white. Mouth, no thr ush or edema noted. Ears/Nose, no mass, lesion, discharge noted. Neck: Supple. No JVD, lymph nodes, bruit, thyromegaly noted. Lungs: Bilateral good equal air entry. Clear to auscultation. No rhonchi. No rales. Heart: Normal heart sounds, no murmur or gallop. Abdomen: Soft, bowel sounds normal. No guarding, rigidity, tenderness, mass, hepatosplenomegaly, dis tention, or bruit noted. Extremities: No leg edema. No calf tenderness. Skin: No rash, ulcer, cellulitis. Lymphatics: No lymph node enlargement in neck, supraclavicular, infraclavicular region. Neuro: No focal neurological deficit. Chest: Unremarkable. External Genitalia: Deferred. Rectal: Deferred. Laboratory Data: WBC 6.9, hemoglobin 13.8, platelets 241. Sodium 136, potassium 3.9, chloride 104, bicarb 23, BUN 24, creatinine 0.75, glucose 135. Liver function test unremarkable. Hip x-ray shows displaced left intertrochanteric hip fracture. Chest x-ray: No acute cardiopulmonary abnormality. EKG: . Impression: 1.Left hip intertrochanteric fracture, displaced. 2.Hypertension. 3.Hyperlipidemia. 4.Anxiety. 5.Supraventricular tachycardia. 6.Impaired fasting glucose. 7.Osteoarthritis, multiple sites. 8.Osteopenia. 9.Peripheral neuropathy. 10.Insomnia. Plan: We will go ahead and admit the patient to hospital for further evaluation and management of th is problem. The patient is appropriate for inpatient and [facility] For her hip fracture, we will go ahead and give pain medication per order. Consult orthopedic beckham rgefabiola, Dr. Negro, and I did communicate with him today and he is planning to do surgery tomorrow. The patient is at acceptable risk from planned surgery tomorrow and we will keep her n.p.o. after m idnight. SCD was ordered for DVT prophylaxis. For hypertension, we will continue her antihypertensi ve medication per order and monitor blood pressure if necessary, adjust medication. For her supraven tricular tachycardia, she takes metoprolol 50 mg in the evening and total 360 mg of verapamil in the morning. Considering her being in the hospital with the pain medication, there is good possibility t hat she may not require as much verapamil and concern is actually that it may drop her blood pressure too low, so just to be on safe side, we will just go ahead and give 240 mg of verapamil instead of 3 60 mg as she was taking it for long time and still give her 50 mg of metoprolol in the evening time, starting this evening. For her hyperlipidemia, continue rosuvastatin per order. No need for further intervention. For her anxiety, no need for any further intervention at this time except continue al prazolam per order. For insomnia, use alprazolam as per order and no need for further intervention. For peripheral neuropathy, we will go ahead and give gabapentin 300 mg daily at bedtime. Total time spent today was 80 minutes, including review of last office visit record from 01/21/2024, communication with emergency room physician today, communication with acquisition specialist, and perf orming today's evaluation and management. The patient has plans to go to [place] for [place] and she was planning to leave on April 05 or , and I have given her my recommendation today that she should cancel her trip. PAOLA/MODL Voice ID: [id number]
[2024-03-24] MEDS: ALPRAZOLAM 0.25 MG TABLET PO PRN (01:55)
[2024-03-24 05:27] LABS: Absolute Eosinophils 0.1 K/uL (0-0.5); Absolute Lymphocytes (CBC) 2.2 K/uL (0.7-4.9); Absolute Monocytes 1.1 K/uL (0.1-1.3); Absolute Neutrophil 5.5 K/uL (1.8-8.0); Basophils % 0.3 % (0-1.3); Eosinophils % 1.3 % (0-4.4); Hematocrit 33.6 % (36.0-45.0); Hemoglobin 11.3 g/dL (12.0-15.0); Lymphocytes % 24.6 % (15.3-44.8); MCH 32.7 pg (27.0-35.0); MCHC 33.6 g/dL (32.0-36.0); MCV 97.3 fL (80-100); MPV 8.6 fL (7.6-11.3); Monocytes % 12.7 % (3.3-12.3); Neutrophils % 61.1 % (41.7-73.7); Nucleated Red Blood Cells % 0.1 % (0-0); Platelets 214 thou/uL (152-406); RBC Red Blood Cell Count 3.45 M/uL (3.86-4.86); Red Cell Distribution Width 14.1 % (12.1-15.2)
[2024-03-24 05:49] LABS: Anion Gap 9.4 mEq/L (5.0-15.0); Potassium 4.4 mEq/L (3.5-5.1)
[2024-03-24] MEDS: PANTOPRAZOLE 40MG TABLET PO SCH (06:01)
[2024-03-24] MEDS: VERAPAMIL SR 240 MG TABLET PO SCH (06:02)
[2024-03-24] MEDS: METOPROLOL TARTRATE 5 MG/5 ML INJ IV ONE (06:41)
[2024-03-24] MEDS: METOPROLOL TARTRATE 5 MG/5 ML INJ IV STA (06:53)
[2024-03-24] MEDS: D5 0.9 NS 1,000 ML IV SCH (07:00)
--- NOTE | 2024-03-24 07:10 | PN ---
Date of Progress Note: 03/24/2024 Subjective: The patient was seen this morning for followup. She had uneventful night as she reports no new complaints or problems reported by her. She was lying in bed, not in any distress. Denies a ny complaints overnight. Physical Examination: Vital Signs: Reviewed. Last temperature 97, pulse 72, respiratory rate 14, blood pressure 102/56, o xygen saturation 97%. HEENT: Unremarkable. Lungs: Clear to auscultation. Heart: When I examine her, the patient was noted to have tachycardia and it was regular rhythm and a stat EKG was done, as I was concerned about her going into SVT and her EKG did confirm that the sarah ent was in SVT with heart rate 149 beats per minute. The patient was asymptomatic and she says tomás anthonyy she feels like she is going into SVT, but today she did not have any symptoms. At home, she uses metoprolol on a p.r.n. basis when she goes into SVT as per instruction from her catering associate. Abdomen: Soft. Bowel sounds normal. No guarding, rigidity, tenderness, distention. Extremities: No leg edema. Laboratory Data: White count 9, hemoglobin 11.3, platelets 214. Sodium 134, potassium 4.4, chloride 103, bicarb 26, BUN 24, creatinine 0.75, glucose 175. Impression: 1.Left hip intertrochanteric fracture. 2.Supraventricular tachycardia. 3.Hypertension. 4.Hyperlipidemia. Plan: We will go ahead and give 5 mg of metoprolol, slow IV push x1 dose now, put the patient on tel emetry monitor. She did get her verapamil this morning. The patient will be kept n.p.o. for her cielo gical intervention for hip fracture today and we will go ahead and start her on IV fluid D5 normal saline while she is n.p.o. SCDs in place for DVT prophylaxis. PAOLA/MODL Voice ID: [id number] Report ID: [id number]
[2024-03-24] MEDS ORDERED: AMIODARONE HCL 450 MG in D5W 241 ML IV SCH (08:00)
[2024-03-24] MEDS ORDERED: AMIODARONE HCL IV ONE (08:00)
[2024-03-24] MEDS ORDERED: D5W IV ONE (08:00)
[2024-03-24] MEDS: AMIODARONE HCL 150 MG in D5W 100 ML IV ONE (08:33)
[2024-03-24] MEDS: NA CHLORIDE 0.9% 250 ML IV ONE (08:38)
[2024-03-24] MEDS ORDERED: NA CHLORIDE 0.9% 250 ML IV PRN (08:47)
[2024-03-24] MEDS: AMIODARONE HCL 900 MG in Dextrose 5%-Water 482 ML IV SCH (08:49)
[2024-03-24] MEDS: ENOXAPARIN 40 MG/0.4 ML SQ ONE ×2 (10:31→10:57)
--- NOTE | 2024-03-24 13:57 | P.CNS ---
Date of Consult: 03/24/24 Chief Complaint: SVT History of Present Illness: Patient with PMH of SVT presented with mechanical fall, hip fracture, she denies having any cardiac symptoms, report history of SVT, on BB. Allergies Penicillins Allergy (Verified 10/14/18 14:05) facial swelling, hives, itching Sulfa (Sulfonamide Antibiotics) Allergy (Verified 10/14/18 14:05) Rash Home medications list reviewed: Yes Home Medications: Meloxicam 7.5 mg PO DAILY PRN 07/03/18 Metoprolol Succinate 50 mg PO DAILY 02/26/22 Metoprolol Tartrate [Lopressor] 100 mg PO PRN 02/26/22 Tramadol HCl [Ultram] 50 mg PO PRN 02/26/22 Verapamil HCl [Verapamil ER] 360 mg PO DAILY 02/26/22 methocarbamoL [Methocarbamol] 750 mg PO PRN 02/26/22 - Past Medical/Surgical History Diabetic: No -: Hypertension -: SVT -: Chronic back pain - Social History Alcohol use: Yes CD- Drugs: No Caffeine use: Yes Place of Residence: Home Review of Systems 10-point ROS is otherwise unremarkable Physical Examination Temp Pulse Resp BP Pulse Ox 97.8 F 62 16 103/52 L 94 03/24/24 12:00 03/24/24 12:00 03/24/24 12:21 03/24/24 12:00 03/24/24 12:21 General: Alert, In no apparent distress HEENT: Atraumatic, PERRLA, Mucous membr. moist/pink, EOMI, Sclerae nonicteric Neck: Supple, 2+ carotid pulse no bruit, No LAD, Without JVD or thyroid abnormality Respiratory: Clear to auscultation bilaterally, Normal air movement Cardiovascular: Regular rate/rhythm, Normal S1 S2 Gastrointestinal: Normal bowel sounds, No tenderness Musculoskeletal: No tenderness Integumentary: No rashes Neurological: Normal gait, Normal speech, Normal tone, Normal affect Lymphatics: No axilla or inguinal lymphadenopathy - Problems (1) SVT (supraventricular tachycardia) Current Visit: Yes Status: Acute Plan: EKG reviewed, shows SVT, patient responded to amiodarone, continue drip for 24 hours then discontinue. (2) Preoperative clearance Current Visit: Yes Status: Acute Plan: Patient is active, denies having any cardiac symptoms, patient is cleared as low cardiac risk for surgery.
[2024-03-24] MEDS: METOPROLOL XL 50 MG TAB PO SCH (17:56)
[2024-03-25] MEDS: AMIODARONE IN DEXTROSE,ISO-OSM 360 MG/200 ML BAG IV ONE (00:18)
[2024-03-25 04:59] LABS: Absolute Eosinophils 0.1 K/uL (0-0.5); Absolute Lymphocytes (CBC) 1.9 K/uL (0.7-4.9); Absolute Monocytes 1.3 K/uL (0.1-1.3); Absolute Neutrophil 5.9 K/uL (1.8-8.0); Basophils % 0.5 % (0-1.3); Eosinophils % 1.5 % (0-4.4); Hematocrit 28.9 % (36.0-45.0); Hemoglobin 9.6 g/dL (12.0-15.0); Lymphocytes % 20.3 % (15.3-44.8); MCH 32.6 pg (27.0-35.0); MCHC 33.3 g/dL (32.0-36.0); MCV 98.1 fL (80-100); MPV 9.1 fL (7.6-11.3); Monocytes % 13.8 % (3.3-12.3); Neutrophils % 63.9 % (41.7-73.7); Platelets 149 thou/uL (152-406); RBC Red Blood Cell Count 2.94 M/uL (3.86-4.86); Red Cell Distribution Width 14.1 % (12.1-15.2)
[2024-03-25 05:18] LABS: Anion Gap 7.8 mEq/L (5.0-15.0); Potassium 3.8 mEq/L (3.5-5.1)
[2024-03-25] MEDS: D5 0.9 NS 1,000 ML IV SCH (07:49)
--- NOTE | 2024-03-25 10:01 | P.PN ---
Subjective Date of Service: 03/25/24 Chief Complaint: SVT Subjective: No new changes, No C/O voiced, Tolerating diet, Ambulating, Improving Review of Systems 10-point ROS is otherwise unremarkable Physical Examination - Vital Signs Temperature: 98.3 F Blood Pressure: 125/51 Pulse: 67 Respirations: 16 Pulse Ox (%): 98 - Physical Exam General: Alert, In no apparent distress HEENT: Atraumatic, PERRLA, EOMI Neck: Supple, JVD not distended Respiratory: Clear to auscultation bilaterally, Normal air movement Cardiovascular: Regular rate/rhythm, Normal S1 S2 Gastrointestinal: Normal bowel sounds, No tenderness Musculoskeletal: No tenderness Integumentary: No rashes Neurological: Normal speech, Normal tone, Normal affect Lymphatics: No axilla or inguinal lymphadenopathy - Studies Medications List Reviewed: Yes Assessment And Plan - Current Problems (Diagnosis) (1) SVT (supraventricular tachycardia) Current Visit: Yes Status: Acute Plan: EKG reviewed, shows SVT, patient responded to amiodarone, continue drip for 24 hours then discontinue. continue Toprol XL and verapamil. (2) Preoperative clearance Current Visit: Yes Status: Acute Plan: Patient is active, denies having any cardiac symptoms, patient is cleared as low cardiac risk for surgery.
--- NOTE | 2024-03-25 11:10 | ECHO ---
HEIGHT: 5 ft 6 in WEIGHT: 165 lb 0 oz DATE OF STUDY: 03/24/[address]: Braulio Chang MD 2-DIMENSIONAL: YES M.MODE: YES DOPPLER: YES COLOR FLOW: YES TDS: YES PORTABLE: YES DEFINITY: NO BUBBLE STUDY: NO DIAGNOSIS: SUPRAVENTRICULAR TACHYCARDIA, PREOP CARDIAC HISTORY: CATHERIZATION: SURGERY: PROSTHETIC VALVE: PACEMAKER: MEASUREMENTS (cm) DIASTOLIC (NORMALS) SYSTOLIC (NORMALS) IVSd 1.0 (0.6-1.2) LA Diam 2.8 (1.9-4.0) LVEF 55-60% LVIDd 3.5 (3.5-5.7) LVIDs 2.5 (2.0-3.5) %FS 30% LVPWd 1.2 (0.6-1.2) Ao Diam 2.6 (2.0-3.7) 2 DIMENSIONAL ASSESSMENT: RIGHT ATRIUM: NORMAL LEFT ATRIUM: NORMAL RIGHT VENTRICLE: NORMAL LEFT VENTRICLE: NORMAL TRICUSPID VALVE: MILD TRICUSPID REGURGITATION MITRAL VALVE: NORMAL PULMONIC VALVE: NORMAL AORTIC VALVE: MILD AORTIC REGURGITATION PERICARDIAL EFFUSION: NONE AORTIC ROOT: NORMAL LEFT VENTRICULAR WALL MOTION: NORMAL. DOPPLER/COLOR FLOW: NORMAL. COMMENTS: 1. NORMAL LEFT VENTRICULAR SYSTOLIC FUNCTION. LEFT VENTRICULAR EJECTION FRACTION 55-60%. NORMAL WALL MOTION. 2. NORMAL DIASTOLIC FUNCTION. TECHNOLOGIST: ALTHEA MARIN
[2024-03-25] MEDS ORDERED: propofoL 200 MG/20 ML VIAL IV ONE (13:27)
[2024-03-25] MEDS ORDERED: FENTANYL CITR 100 MCG/2 ML ONE ×2 (13:27→15:54)
[2024-03-25] MEDS ORDERED: ONDANSETRON 4 MG/2 ML VIAL ONE (13:27)
[2024-03-25] MEDS: Ringers Lactate 1,000 ML IV ONE (13:45)
[2024-03-25] MEDS: TRANEXAMIC ACID 1,000 MG/10 ML VIAL IV ONE (14:35)
[2024-03-25] MEDS: CEFAZOLIN SODIUM 2 GM/VIAL ONE (15:25)
[2024-03-25] MEDS ORDERED: KETOROLAC 30 MG/ML INJ ONE (16:21)
--- NOTE | 2024-03-25 16:33 | P.BOP ---
Preoperative diagnosis: left proximal femur fracture Postoperative diagnosis: same Primary procedure: left femur pfracture MARGO yusef Estimated blood loss: 100 ccs Anesthesia: General Complications: None Transferred to: Recovery Room Condition: Good
[2024-03-25] MEDS: HYDROMORPHONE HCL 1 MG/ML INJ ONE (17:05)
[2024-03-25] MEDS: MEPERIDINE HCL 25 MG/ML SYR ONE (17:06)
--- NOTE | 2024-03-25 18:18 | RAD REPORT ---
EXAM: Fluoroscopy use, Hip in OR Left 2 View HISTORY: LT HIP RODDING COMPARISON: None FINDINGS: Multiple images were sent to PACS, during a fluoroscopically guided procedure. No radiologi st was involved in protocoling or performance of the study, and no radiologist was present for the duration of the procedure. No interpretation of the saved images will be provided. Total fluoroscopy time: 2.4 minutes. IMPRESSION: Documentation of fluoroscopy use as above.
[2024-03-25] MEDS: CEFAZOLIN 1 GM in NA CHLORIDE 0.9% 50 ML IVPB SCH (18:40)
[2024-03-25] MEDS: ENSURE SURGERY 237 ML CAN PO SCH (19:53)
--- NOTE | 2024-03-25 23:12 | PN ---
Date of Progress Note: 03/25/2024 Subjective: The patient was seen this morning for followup. She was lying in bed, not in distress. Denies any chest pain, palpitation. No shortness of breath. The patient remains in normal sinus [facility] and she converted into sinus rhythm from supraventricular tachycardia sometime yesterday morning after IV amiodarone was started. Objective: Vital Signs: Reviewed. HEENT: Unremarkable. Lungs: Clear to auscultation. Heart: Sounds normal. Abdomen: Soft. Bowel sounds normal. No guarding, rigidity, tenderness, distention. Extremities: No leg edema. Laboratory Data: White count 9.2, hemoglobin 9.6, platelets 149. Sodium 134, potassium 3.8, chlorid e 102, bicarb 28, BUN 16, creatinine 0.44, glucose 133. Impression: 1.Left hip fracture. 2.Supraventricular tachycardia. 3.Hypertension. 4.Anemia, due to acute blood loss. Plan: We will go ahead and continue amiodarone. Continue current pain medication. The patient had Lovenox 1 dose yesterday, 40 mg yesterday morning for DVT prophylaxis and this evening, Dr. Negro called and informed me that the patient had uneventful surgery and we will start Lovenox as of tom morning as per my discussion with Dr. Negro. We will start physical therapy per order and I will see her tomorrow for followup. PAOLA/MODL Voice ID: [id number] Report ID: [id number]
--- NOTE | 2024-03-26 02:28 | OP ---
Date of Procedure: 03/25/2024 Surgeon: Andrei Negro MD Preoperative Diagnosis: Left proximal femur fracture consistent with intertrochanteric fracture with subtrochanteric extension. Postoperative Diagnosis: Left proximal femur fracture consistent with intertrochanteric fracture wit h subtrochanteric extension. Procedure Performed: Left hip closed reduction with intramedullary yusef fixation using Affixus nail s ystem, this is a long yusef. Complications: There were no complications. Estimated Blood Loss: 100 cc. Specimens: No pathology specimens sent. Indications For Operation: Ms. Gracia is an 79-year-old female, who unfortunately fell trying to ge t into her vehicle landing on the concrete. She had immediate pain. She was brought to the emergenc y room, where x-rays were taken which demonstrated comminuted intertrochanteric fracture with subtroc hanteric extension. Risks, benefits, and alternatives of different methods of treating this have bee n discussed with the patient and she unfortunately did have some cardiac events which were monitored by Cardiology, which necessitated schedule for this time. She says she understands everything as pre sented including risks, benefits, and alternatives, and agrees to proceed. Description Of Procedure: The patient was taken to the operating room and placed in the supine posit ion. She was transferred to the fracture table. She was appropriately positioned on the fracture ta ble with all of her bony prominences being checked by Anesthesia and by myself. The fracture table w as then used to elicit a very good reduction and good biplanar C-arm radiography views were obtained. After this, the left lower extremity was then prepped and draped in usual sterile fashion for the p rocedure and the greater trochanter was marked out and a vertical incision was made just superior to the greater trochanter. This was taken down carefully through skin and soft tissues. Meticulous hem ostasis being maintained using Bovie electrocautery. The fascia was divided and the greater trochant er was easily palpated with a finger. After this, a starting awl was then used to establish a starti ng portal and the guidewire was then placed across the fracture site into the distal femur. After th is, decision to move forward with a size 9 x 130 intramedullary nail was then placed easily over the guide pin to appropriate depth. After this, the cephalomedullary screw was placed without difficulty followed by placement of antirotation screw. Both of these were checked under biplanar C-arm radiog anya to ensure good position. After this, the C-arm was then brought more distally as the distal in terlocking screw was then placed using perfect circles and this was placed without difficulty. After this, the incisions were irrigated and fascia was closed using heavy Vicryl sutures followed by clos ure of skin using Vicryl and berenice. The patient was then placed in Aquacel dressing, awakened, malini en to recovery room in good condition. No complications. /MODNathalia Voice ID: [id number] Report ID: [id number]
[2024-03-26 05:11] LABS: Absolute Eosinophils 0.1 K/uL (0-0.5); Absolute Lymphocytes (CBC) 1.5 K/uL (0.7-4.9); Absolute Monocytes 1.2 K/uL (0.1-1.3); Absolute Neutrophil 8.8 K/uL (1.8-8.0); Basophils % 0.4 % (0-1.3); Eosinophils % 0.5 % (0-4.4); Hematocrit 27.9 % (36.0-45.0); Lymphocytes % 13.1 % (15.3-44.8); MCH 31.6 pg (27.0-35.0); MCHC 32.1 g/dL (32.0-36.0); MCV 98.5 fL (80-100); MPV 8.9 fL (7.6-11.3); Monocytes % 10.4 % (3.3-12.3); Neutrophils % 75.6 % (41.7-73.7); Nucleated Red Blood Cells % 0.1 % (0-0); Platelets 127 thou/uL (152-406); RBC Red Blood Cell Count 2.83 M/uL (3.86-4.86); Red Cell Distribution Width 14.1 % (12.1-15.2)
[2024-03-26 05:31] LABS: AST/SGOT 16 U/L (15-37); Albumin 2.6 g/dL (3.4-5.0); Albumin/Globulin Ratio 0.8 (1.1-1.8); Alkaline Phosphatase 80 U/L (45-117); Anion Gap 7.3 mEq/L (5.0-15.0); BUN Blood Urea Nitrogen 19 mg/dL (7-18); Bicarbonate 28 mEq/L (21-32); Bilirubin Total 0.4 mg/dL (0.2-1.0); Globulin 3.4 g/dL (2.3-3.5); Glomerular Filtration Rate 76 ml/min (=/>90); Glucose Level 127 mg/dL (74-106); Magnesium 2.1 mg/dL (1.6-2.4); Potassium 4.3 mEq/L (3.5-5.1); Sodium Level 135 mEq/L (136-145)
[2024-03-26 05:38] LABS: ALT/SGPT < 14 U/L (13-56)
[2024-03-26 05:44] LABS: Blood Morphology Comment NOT SEEN (NOT SEEN); Platelet Estimate ADEQ; White Blood Cell Scan OK (OK)
[2024-03-26] MEDS: APIXABAN 2.5 MG TABLET PO SCH (08:34)
[2024-03-26] MEDS: DOCUSATE NA/SENNA CONC 1 TAB PO SCH (20:25)
--- NOTE | 2024-03-26 20:25 | PN ---
Date of Progress Note: 03/26/2024 Subjective: The patient was seen this morning for followup. No new complaints or problems reported by the patient. She had her left hip surgery done yesterday by Dr. Negro. This morning, she den ies any new complaints. No nausea, vomiting. No chest pain, no shortness of breath. Objective: Vital signs: Reviewed. HEENT: Unremarkable. Lungs: Clear to auscultation. Heart: Sounds normal. Abdomen: Soft. Bowel sounds normal. No guarding, rigidity, tenderness, distention. Extremities: No leg edema. Laboratory Data: Reviewed. Impression: 1.Left hip fracture. 2.Supraventricular tachycardia. 3.Hypertension. 4.Anemia due to acute blood loss. Plan: We will go ahead and continue verapamil 240 mg daily in morning and metoprolol 50 mg daily in the evening time. The patient was in sinus rhythm with controlled heart rate this morning when I saw her. Continue current pain medication per order and for DVT prophylaxis, we will go ahead and start her on Eliquis 2.5 mg 2 times a day. Physical therapy to work with the patient and I have requested consultation from social service to assist the patient with discharge planning. Her preference woul d be to go to inpatient rehab on the 5th floor if her insurance will approve it. If not, then she wi ll need to go to [facility]. I will see her tomorrow for followup. Senokot S 2 tablet s daily at bedtime will be started as of tonight and milk of magnesia as needed was ordered for constipation. Her last bowel movement was on Sunday. PAOLA/MODL Voice ID: [id number] Report ID: [id number]
[2024-03-27 06:32] LABS: Absolute Basophils 0.1 K/uL (0-0.5); Absolute Eosinophils 0.2 K/uL (0-0.5); Absolute Lymphocytes (CBC) 1.4 K/uL (0.7-4.9); Absolute Monocytes 1.1 K/uL (0.1-1.3); Absolute Neutrophil 7.4 K/uL (1.8-8.0); Basophils % 0.5 % (0-1.3); Eosinophils % 2.3 % (0-4.4); Hematocrit 22.6 % (36.0-45.0); Hemoglobin 7.5 g/dL (12.0-15.0); Lymphocytes % 13.9 % (15.3-44.8); MCH 32.7 pg (27.0-35.0); MCHC 33.3 g/dL (32.0-36.0); MCV 98.1 fL (80-100); Monocytes % 10.4 % (3.3-12.3); Neutrophils % 72.9 % (41.7-73.7); Platelets 160 thou/uL (152-406); Red Cell Distribution Width 13.9 % (12.1-15.2)
[2024-03-27] MEDS: ENSURE HIGH PROTEIN 237 ML CAN PO SCH (09:00)
[2024-03-27] MEDS: FE SULF/FA/VIT B COMP & C TAB PO SCH (09:43)
[2024-03-27] MEDS: MAGNESIUM HYDROXIDE 8% 30 ML PO PRN (09:50)
[2024-03-27] MEDS: AMIODARONE HCL 150 MG in D5W 100 ML IV STA (14:26)
[2024-03-27] MEDS: AMIODARONE HCL 900 MG in Dextrose 5%-Water 482 ML IV SCH (14:41)
[2024-03-27 17:05] LABS: Absolute Eosinophils 0.1 K/uL (0-0.5); Absolute Lymphocytes (CBC) 1.6 K/uL (0.7-4.9); Absolute Monocytes 1.2 K/uL (0.1-1.3); Basophils % 0.3 % (0-1.3); Eosinophils % 1.2 % (0-4.4); Hematocrit 25.4 % (36.0-45.0); Hemoglobin 8.5 g/dL (12.0-15.0); Lymphocytes % 14.5 % (15.3-44.8); MCH 32.1 pg (27.0-35.0); MCHC 33.5 g/dL (32.0-36.0); MCV 95.8 fL (80-100); MPV 9.1 fL (7.6-11.3); Monocytes % 10.7 % (3.3-12.3); Neutrophils % 73.3 % (41.7-73.7); Nucleated Red Blood Cells % 0.1 % (0-0); Platelets 160 thou/uL (152-406); RBC Red Blood Cell Count 2.65 M/uL (3.86-4.86); Red Cell Distribution Width 14.8 % (12.1-15.2)
--- NOTE | 2024-03-27 20:58 | PN ---
Date of Progress Note: 03/27/2024 Subjective: The patient was seen this morning for followup. She was lying in bed, not in any distre ss. Denies any new complaints. No abdominal pain, nausea, vomiting. Has not had a bowel movement s jaclyn she got admitted to the hospital. Denies any chest pain, shortness of breath or palpitation. Objective: Vital Signs: Reviewed. HEENT: Unremarkable. Lungs: Clear to auscultation. Heart: Sounds normal. Abdomen: Soft. Bowel sounds normal. No guarding, rigidity, tenderness, distention. Extremities: No leg edema. Laboratory Data: White count 10.10, hemoglobin 7.5, platelets 160. Sodium 135, potassium 4.3, chlor winnie 104, bicarb 28, BUN 19, creatinine 0.78, glucose 127. Liver function test unremarkable and this is chemistry result from yesterday. Impression: 1.Left hip intertrochanteric fracture, status post surgery. 2.Acute blood loss anemia. 3.Hypertension. 4.Supraventricular tachycardia. Plan: We will go ahead and continue current anticoagulation therapy, which is Eliquis. Continue to follow up with the bundle person. Continue verapamil and metoprolol per order. Continue current pain medication and physical therapy. The patient has acute blood loss anemia, and we will give 1 unit of PRBC blood transfusion today. I will see her tomorrow for followrashard joe ACA/PIERCE Voice ID: [id number] Report ID: [id number]
[2024-03-28 05:04] LABS: Absolute Eosinophils 0.2 K/uL (0-0.5); Absolute Lymphocytes (CBC) 1.9 K/uL (0.7-4.9); Absolute Monocytes 1.2 K/uL (0.1-1.3); Absolute Neutrophil 6.7 K/uL (1.8-8.0); Basophils % 0.3 % (0-1.3); Eosinophils % 2.2 % (0-4.4); Hematocrit 25.2 % (36.0-45.0); Hemoglobin 8.4 g/dL (12.0-15.0); Lymphocytes % 18.6 % (15.3-44.8); MCHC 33.3 g/dL (32.0-36.0); MCV 96.1 fL (80-100); MPV 9.1 fL (7.6-11.3); Monocytes % 12.1 % (3.3-12.3); Neutrophils % 66.8 % (41.7-73.7); Nucleated Red Blood Cells % 0.1 % (0-0); Platelets 165 thou/uL (152-406); RBC Red Blood Cell Count 2.62 M/uL (3.86-4.86)
[2024-03-28] MEDS: BISACODYL 10 MG RECTAL SUPP PR ONE (10:41)
[2024-03-28] MEDS: FLU (Fluarix Triv) TS24-25(6MOS UP)/PF 45 MCG/0.5 ML Syringe IM ONE (12:00)
[2024-03-28] MEDS: AMIODARONE HCL 200 MG TAB PO SCH (12:54)
--- NOTE | 2024-03-28 12:55 | P.PN ---
Subjective Date of Service: 03/28/24 Chief Complaint: SVT Subjective: No new changes, No C/O voiced, Tolerating diet, Ambulating, Improving Review of Systems 10-point ROS is otherwise unremarkable Physical Examination - Vital Signs Temperature: 98.0 F Blood Pressure: 102/52 Pulse: 69 Respirations: 14 Pulse Ox (%): 96 - Physical Exam General: Alert, In no apparent distress HEENT: Atraumatic, PERRLA, EOMI Neck: Supple, JVD not distended Respiratory: Clear to auscultation bilaterally, Normal air movement Cardiovascular: Regular rate/rhythm, Normal S1 S2 Gastrointestinal: Normal bowel sounds, No tenderness Musculoskeletal: No tenderness Integumentary: No rashes Neurological: Normal speech, Normal tone, Normal affect Lymphatics: No axilla or inguinal lymphadenopathy - Studies Medications List Reviewed: Yes Assessment And Plan - Current Problems (Diagnosis) (1) SVT (supraventricular tachycardia) Current Visit: Yes Status: Acute Plan: Patient had another episode of HR up to the 150-160s, EKG reviewed and shows SVT vs Flutter with 2:1 block, patient responded to amiodarone, continue drip for 24 hours then discontinue. start amiodarone 200 mg po BID Increase Eliquis to 5 mg BID continue Toprol XL stop verapamil. Patient need outpatient follow up with EP for EP study. (she sees Dr. Nowak at [facility]) (2) Preoperative clearance Current Visit: Yes Status: Acute Plan: Patient is s/p surgery, tolerated procedure well. going through physical therapy.
--- NOTE | 2024-03-28 15:45 | PN ---
Date of Progress Note: 03/28/2024 Subjective: The patient was seen this morning for followup. She was feeling fine. No new complaint s forms reported. Has not had a bowel movement since she came into the hospital. Denies any abdomin al pain, nausea, or vomiting. No chest pain or shortness of breath. Yesterday afternoon, she felt l joey she was having palpitation and she took her own metoprolol 100 mg dose before nurse got in the ro om and yesterday as per my instruction nurse did talk to her and informed her not to take any medicat ion on her own while in the hospital, and I did explain her importance of not using any of her home m edication on her own while she is in the hospital because that will interfere with our management gee t we trying to do for her, and she understands that. Yesterday afternoon, her heart rate had gone up to 150 beats per minute and late yesterday evening for very brief period of time, probably for a few seconds that her heart rate had gone down into 30 beats per minute and recovered on its own without any intervention. Dr. Johnson has restarted her on IV amiodarone as of yesterday and currently when I saw her this morning she was on that. She did participate well with PHYSICAL therapy yesterday. Objective: Vital Signs: Reviewed this morning. Her last temperature 98.7, pulse 62, respiratory ra te 14, blood pressure 105/51, oxygen saturation 96% on 2 L nasal cannula oxygen. HEENT: Unremarkable. Lungs: Clear to auscultation. Heart: Sounds normal. Abdomen: Soft. Bowel sounds normal. No guarding, rigidity, tenderness, or distention. Extremities: No leg edema. Her left foot heel area was getting pressed against the mattress even th ough she had 1 pillow under her left leg, so I did place second pillow under her left leg and elevate d her left leg in the way that her left heel was offloaded and was not coming in contact with the mat tress and I did explain it to her importance of keeping her left foot offloaded all the time to avoid any decubitus ulcer. Laboratory Data: This morning, WBC 10, hemoglobin 8.4, platelets 165. Impression: 1.Left hip fracture. 2.Acute blood loss anemia. 3.Supraventricular tachycardia. 4.Hypertension. 5.Constipation. Plan: We will continue amiodarone drip and management per metal mockup maker for her supraventricular tach ycardia. Continue to follow with metal mockup maker. The patient is on Eliquis 2.5 mg 2 times a day for D VT prophylaxis and continue current pain medication. Her pain is under better control since the surg olaf. For constipation, the patient has been getting Senokot-S 2 tablets daily and today I have order ed Dulcolax rectal suppository x1 dose. Physical therapy to continue work with her. We will repeat blood work tomorrow, and I will see her tomorrow for followup. Her echocardiogram done a couple of d ays ago had shown normal ejection fraction and no evidence of any systolic or diastolic dysfunction. The patient also informed me that she had 1 trip planned for this month, which is April 05. Maribell hernandez was planning to leave on second trip. She is to go to [facility] in May, and I have recommen ded her to cancel both of those trips. PAOLA/MODL Voice ID: [id number] Report ID: [id number]
--- NOTE | 2024-03-28 16:08 | EKG ---
Test Date: 2024-03-23 Test Time: 12:41:45 Quickbooks Bookkeeper: MAGALIE MEASUREMENT RESULTS: Intervals: Rate: 58 LA: 226 QRSD: 76 QT: 452 QTc: 443 Peytona: P: 76 LA: 226 QRS: 22 T: 30 INTERPRETIVE STATEMENTS: Sinus bradycardia with 1st degree AV block Otherwise normal ECG Compared to ECG 03/01/2022 00:05:06 First degree AV block now present Atrial flutter no longer present Left ventricular hypertrophy no longer present Early repolarization no longer present Electronically Signed On 03-28-24 15:58:10 BRATTICE BUILDER by Miguelito Johnson
[2024-03-29 00:24] VITALS: O2SAT 96
[2024-03-29 04:36] LABS: Absolute Eosinophils 0.2 K/uL (0-0.5); Absolute Lymphocytes (CBC) 1.5 K/uL (0.7-4.9); Absolute Monocytes 1.4 K/uL (0.1-1.3); Absolute Neutrophil 6.7 K/uL (1.8-8.0); Basophils % 0.3 % (0-1.3); Eosinophils % 1.9 % (0-4.4); Hematocrit 25.2 % (36.0-45.0); Hemoglobin 8.3 g/dL (12.0-15.0); Lymphocytes % 15.4 % (15.3-44.8); MCH 31.6 pg (27.0-35.0); MCV 95.9 fL (80-100); MPV 8.6 fL (7.6-11.3); Monocytes % 14.5 % (3.3-12.3); Neutrophils % 67.9 % (41.7-73.7); Nucleated Red Blood Cells % 0.1 % (0-0); Platelets 199 thou/uL (152-406); RBC Red Blood Cell Count 2.63 M/uL (3.86-4.86); Red Cell Distribution Width 14.9 % (12.1-15.2)
[2024-03-29 05:08] LABS: Albumin 2.3 g/dL (3.4-5.0); Albumin/Globulin Ratio 0.6 (1.1-1.8); Bilirubin Total 1.1 mg/dL (0.2-1.0); Globulin 3.6 g/dL (2.3-3.5); Magnesium 2.3 mg/dL (1.6-2.4); Protein, Total 5.9 g/dL (6.4-8.2); Thyroid Stimulating Hormone 0.992 uIU/mL (0.358-3.740)
[2024-03-29 08:03] VITALS: BP 133/55; TEMP 98.6
[2024-03-29] MEDS: BISACODYL 10 MG RECTAL SUPP PR ONE (08:42)
[2024-03-29] MEDS: MAGNESIUM HYDROXIDE 8% 30 ML PO ONE (08:43)
[2024-03-29] MEDS: HYDROCODONE/APAP 5/325 MG TAB PO PRN (09:20)
--- NOTE | 2024-03-29 09:37 | DS ---
Date of Discharge: 03/29/2024 Disposition: Discharged to go to inpatient rehab. Physical Examination: HEENT: Unremarkable. Lungs: Clear to auscultation. Heart: Sounds normal. Abdomen: Soft. Bowel sounds normal. No guarding, rigidity, tenderness, distention. Extremities: No leg edema. Laboratory Data: Today, WBC 9.9, hemoglobin 8.3, platelets 199. Lowest hemoglobin for this admissio n was 7.5 and this was on 03/27/2024 and patient received 1 unit of PRBC blood transfusion after that . Last chemistry today sodium 132, potassium 4, chloride 101, bicarb 27, BUN 11, creatinine 0.42, gl ucose 116. Liver function tests unremarkable. TSH 0.992. Serum albumin 2.3. Upon admission, WBC 6 .9, hemoglobin 13.8, platelets 241. Sodium 136, potassium 3.9, chloride 104, bicarb 23, BUN 24, crea tinine 0.75, glucose 135. Liver function tests unremarkable. Hip fracture had shown left hip intert rochanteric displaced fracture. Chest x-ray was negative for any acute changes. Final Diagnoses: 1.Left hip intertrochanteric fracture, displaced. 2.Acute blood loss anemia. 3.Supraventricular tachycardia. 4.Constipation. 5.Hypertension. 6.Hyperlipidemia. 7.Mild nutrition, moderate. 8.Anxiety. 9.Impaired fasting glucose. 10.Osteoarthritis, multiple sites. 11.Osteopenia. 12.Peripheral neuropathy. 13.Insomnia. Disposition: The patient was discharged today to go to inpatient rehab on the 5th floor. Hospital Course: This is an 79-year-old pleasant female patient who fell down in her driveway as she was trying to climb into her suburban and as she was stepping on running board, her foot slipped and she fell on the concrete floor on her driveway and her was able to help her get back in the car and brought her to emergency room. After she was evaluated in the ER, she was diagnosed as havin g left hip fracture and was admitted to the hospital. Dr. Negro from Orthopedic Surgery was cons ulted. The patient was scheduled to have surgery on Sunday of this week, but during pigment furnace tender ho urs, she actually ended up having a supraventricular tachycardia. She was asymptomatic, but when I s aw her pigment furnace tender, I noted this problem, so obviously her surgery was canceled for that day. Card iology consultation was requested from Dr. Johnson and he has started her on IV amiodarone and she con verted back to sinus rhythm and remained in sinus rhythm and next day on Sunday, she had her left hi p fracture surgery by Dr. Negro. Surgery was unremarkable. She did not have any problem after t he surgery. The patient received 1 dose of Lovenox on Sunday and surgery was done on Sunday. As of Sunday morning, day after surgery, we started her on Eliquis 2.5 mg 2 times a day and unfortunate ly patient did go back in supraventricular tachycardia again and Dr. Johnson restarted her on IV amiod arone for another 24 hours and then changed it to oral amiodarone 200 mg 2 times a day. At home, she was taking verapamil and metoprolol, which was given to her during this hospitalization, but after n ow this last round of amiodarone, we have discontinued this medication and her blood pressure has rem ained in normal range that she has not required any antihypertensive medication now. The patient did have acute blood loss anemia with hemoglobin dropping down as low at 7.5 day after surgery and she d id require 1 unit of blood transfusion. After that, her hemoglobin has remained stable. The patient is having constipation problem and Senokot S 2 tablets daily was started and that did not help to re solve the constipation, so yesterday we actually gave her 1 dose of Milk of Magnesia and Dulcolax rec janell suppository and she did have 2 small bowel movements. Social Service was consulted for the patie nt to go to inpatient rehab on the 5th floor and yesterday her insurance company denied it and after that, I did talk to insurance company for [id number] appeal and I was able to get approval for [facility] rehab, so today patient will be discharged to go to inpatient rehab in stable condition. I gopi l continue to follow up on the rehab floor. The patient does have at least moderate malnutrition wit h her serum albumin level being very low and I did talk to her and encouraged her to not only increas e her oral intake of food, but also to use nutritional supplement, Ensure, as per order. Total time spent today 45 minutes. Discharge Medication Instructions: Continue all current medications. PAOLA/MODL Voice ID: [id number] Report ID: [id number]
--- NOTE | 2024-04-03 11:41 | EKG ---
Test Date: 2024-03-27 Test Time: 21:43:48 Parking Regulation Enforcement Officer: FS MEASUREMENT RESULTS: Intervals: Rate: 64 OR: 448 QRSD: 80 QT: 434 QTc: 447 [place]: P: 68 OR: 448 QRS: 9 T: 12 INTERPRETIVE STATEMENTS: Sinus rhythm with 1st degree AV block Otherwise normal ECG Compared to ECG 03/24/2024 06:41:41 Sinus tachycardia no longer present ST (T wave) deviation no longer present Electronically Signed On 04-03-24 11:39:01 LOOM CLEANER by Miguelito Johnson
== END 2024-03-29 10:43 | DRG 481 ==
LOC: ER 10:58 → ERHOLD 12:07 → 2ND 13:31
PROVIDERS: ADMIT Internal Medicine; ATTEND Internal Medicine
PROC: 0QS736Z Reposition Left Upper Femur with Intramedullary Internal Fixation Device, Percutaneous Approach (ICD-10-PCS; principal; 2024-03-25 15:07)
PROC: 30233N1 Transfusion of Nonautologous Red Blood Cells into Peripheral Vein, Percutaneous Approach (ICD-10-PCS; 2024-03-27)
DX: S72.142A Displaced intertrochanteric fracture of left femur, initial encounter for closed fracture (principal); D62 Acute posthemorrhagic anemia; I47.10 Supraventricular tachycardia, unspecified; E44.0 Moderate protein-calorie malnutrition; I10 Essential (primary) hypertension; K21.9 Gastro-esophageal reflux disease without esophagitis; G89.29 Other chronic pain; M54.9 Dorsalgia, unspecified; G62.9 Polyneuropathy, unspecified; G47.00 Insomnia, unspecified; K59.00 Constipation, unspecified; F41.9 Anxiety disorder, unspecified; M19.09 Primary osteoarthritis, other specified site; M85.80 Other specified disorders of bone density and structure, unspecified site; R73.01 Impaired fasting glucose; Z88.2 Allergy status to sulfonamides; Z88.0 Allergy status to penicillin; Z68.26 Body mass index [BMI] 26.0-26.9, adult; Z96.652 Presence of left artificial knee joint; Z90.710 Acquired absence of both cervix and uterus; W01.0XXA Fall on same level from slipping, tripping and stumbling without subsequent striking against object, initial encounter; Y93.89 Activity, other specified; Y92.9 Unspecified place or not applicable; Y99.9 Unspecified external cause status
CPT/HCPCS: 36415; 36430; 71045; 80048; 80053; 80076; 82947; 83735; 84443; 84484; 85025; 85610; 86850; 86900; 86901; 86920; 93005; 93306; 96374; 97110; 97161; 97530; 99285; J0282; J0690; J1171; J1650; J2175; J2270; J2405; J2704; J3010; J7042; J7050; J7060; J7120; P9016

== ENCOUNTER 2024-03-29 08:40 | Inpatient (IN) | payer OTHER ==
--- OUTSIDE RECORDS SUMMARY | 2024-03-29 10:33 | XMS REPORT | Clinical Summary ---
Author Name Unknown Organization Formerly [facility] Address [address] [place] [address] Care Team Providers Care Die Mounter Name Role Phone Braulio Chang MD Unavailable [phone] Tasia Azar MD Primary Care Provider [phone] Catrina De Los Santos MD Unavailable Allergies Active Allergy Reactions Criticality Noted Date [...] (11/10/2022): Added automatically from request for surgery [id number] Hormone replacement therapy 09/19/2022 Encounters Date Type Department Care Team Description 03/30/2023 8:00 AM HUMAN PERFORMANCE TECHNOLOGIST Office Visit MD [facility] in [place] - Gynecology [facility] [place], [place] [id number] Tasia Azar MD Postoperative visit (Primary Dx); 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 03/30/2023 Travel after 03/30/2023 Surgical History Surgery Date Site/Laterality Comments COLONOSCOPY 04/16/2012 - 04/15/2013 STOMACH SURGERY peptic ulcer SECTION, CLASSIC x2: 1971, 1973 [place] HYSTEROSCOPY BX ENDOMETRIUM&/POLYPC W/WO D&C 11/02/2022 Vagina /Midline Procedure: Diagnostic HYSTEROSCOPY; Surgeon: Tasia Azar MD; Location: MAIN OR; Service: FLUID POWER MECHANIC - GYNECOLOGIC ONCOLOGY [place] LAPS TOTAL HYSTERECT 250 GM/< W/RMVL TUBE/OVARY 02/13/2023 Abdomen/Bilateral Procedure: LAPAROSCOPY, SURGICAL, WITH TOTAL HYSTERECTOMY, WITH OR WITHOUT REMOVAL OF TUBE(S) AND/OR OVARY(S); Surgeon: Tasia Azar MD; Location: MAIN OR; Service: FLUID POWER MECHANIC - GYNECOLOGIC ONCOLOGY [place] CYSTO W/INSERT URETERAL STENT 02/13/2023 Genitalia/Right Procedure: CYSTOURETHROSCOPY WITH INSERTION OF INDWELLING URETERAL STENT; Surgeon: Tasia Azar MD; Location: MAIN OR; Service: FLUID POWER MECHANIC - GYNECOLOGIC ONCOLOGY [place] URETEROLYSIS W/WORPSG URETER RETROPERIT FIBROSIS 02/13/2023 Abdomen/Right Procedure: URETEROLYSIS, WITH OR WITHOUT REPOSITIONING OF URETER FOR RETROPERITONEAL FIBROSIS; Surgeon: Tasia Azar MD; Location: MAIN OR; Service: FLUID POWER MECHANIC - GYNECOLOGIC ONCOLOGY Medical History Medical History [...] Comments Blood Pressure 114/66 03/30/2023 7:59 AM HUMAN PERFORMANCE TECHNOLOGIST Pulse 63 03/30/2023 7:59 AM HUMAN PERFORMANCE TECHNOLOGIST Temperature 36.7 C (98.1 F) 03/30/2023 7:59 AM CS T Respiratory Rate 16 03/30/2023 7:59 AM HUMAN PERFORMANCE TECHNOLOGIST Oxygen Saturation - - Inhaled Oxygen Concentration - - Weight - - Height - - Body Mass Index - - Plan of Treatment Health Maintenance Due Date Last Done Comments Pneumococcal Vaccine: 65+ Years (1 of 1 - PCV) 008 COVID-19 Vaccine ( - 2023- season) 2023 Influenza Vaccine (#1) 2023 Insurance [facility] [employer] [facility]PO [employer] PPO Advance Directives * Full Code (Latest Code Status on File) Date Activated Date Inactivated Comments 02/13/2023 6:31 PM 02/14/2023 3:48 PM * Full Code Date Activated Date Inactivated Comments 11/02/2022 8:24 AM 11/02/2022 12:31 PM Care Teams Die Mounter Relationship Specialty Start Date End Date Braulio Chang MD [address] [place] [phone] [email or web address] PCP - External Referring Internal Medicine 09/08/22 Tasia Azar MD [address] [place] [phone] [email or web address] PCP - General Gynecological Oncology 09/13/22 Catrina De Los Santos MD [address] [address] [email or web address] PCP - External Follow Up A Obstetrics/Gynecology 09/20/22
[2024-03-29] MEDS ORDERED: MAGNESIUM HYDROXIDE 8% 30 ML PO PRN (12:04)
[2024-03-29 14:29] LABS: Specific Gravity 1.007 (1.005-1.030); Sqamous Epithelial <5 /HPF (None Seen); Urine Bacteria None Seen /HPF (<20); Urine Bilirubin NEGATIVE (Negative); Urine Blood Negative (Negative); Urine Clarity Extremely Turbid (Clear); Urine Color Yellow (Yellow); Urine Crystals Unidentified Few /HPF (None Seen); Urine Culture Reflex Order NOT NEEDED; Urine Glucose NEGATIVE (Negative); Urine Ketones NEGATIVE (Negative); Urine Micro Reflex YN NO BILL MICROSCOPIC; Urine Nitrite NEGATIVE (Negative); Urine Protein NEGATIVE (Negative); Urine RBC <5 /HPF (None Seen); Urine Urobilinogen Normal (Normal); Urine WBC <5 /HPF (<5); Urine WBC Clump Rare /HPF (None Seen); Urine Yeast (Budding) Trace /HPF (None Seen)
[2024-03-29] MEDS: HYDROCODONE/APAP 5/325 MG TAB PO PRN (14:46)
[2024-03-29] MEDS: ENSURE SURGERY 237 ML CAN PO SCH (20:00)
[2024-03-29] MEDS: APIXABAN 2.5 MG TABLET PO SCH (20:35)
[2024-03-29] MEDS: FAMOTIDINE 20 MG TAB PO SCH (20:35)
[2024-03-29] MEDS: DOCUSATE NA/SENNA CONC 1 TAB PO SCH (20:36)
[2024-03-29] MEDS: AMIODARONE HCL 200 MG TAB PO SCH (20:36)
[2024-03-29] MEDS: ROSUVASTATIN 10 MG TAB PO SCH (20:36)
[2024-03-29] MEDS: GABAPENTIN 300 MG CAP PO SCH (20:36)
[2024-03-29] MEDS: ROPINIROLE HCL 1 MG TAB PO SCH (20:37)
[2024-03-29] MEDS: ENSURE HIGH PROTEIN 237 ML CAN PO SCH (20:46)
[2024-03-29] MEDS ORDERED: DOCUSATE NA/SENNA CONC 1 TAB PO SCH (21:00)
--- NOTE | 2024-03-30 00:10 | HP ---
Date of Admission: 03/29/2024 Time Of Service: 8:30 p.m. Chief Complaint: "I fell and broke my hip." History Of Present Illness: Basil is an 79-year-old right-handed patient with history of hypertens ion, anxiety, dyslipidemia, impaired glucose tolerance, supraventricular tachycardia, and peripheral neuropathy, who was at home actually getting into her suburban reportedly on the when she slipped on the running board and fell on a concrete surface. She immediately felt pain on the left hip, whe re she impacted the concrete and was brought to hospital where she was found to have left hip intertr ochanteric fracture by imaging. She was evaluated by Dr. Negro from Orthopedic Service and the s urgery was to address her fracture, was done on 03/25/2024. He performed left femur fracture MARGO ro d treatment and she was sent to the recovery room. Her postoperative course complicated by drop in h emoglobin down to 7.5 and 1 unit of blood was transfused and subsequent hemoglobin now has been stabl e around 8.3 at the time of admission to the unit. Her hemoglobin on the 23 of March was 13.8 an d again postoperative drop. She in addition was evaluated by the Therapy Service and found to be req uiring moderate assistance for bed mobilization, exf-zn-fyrxc and beginning to ambulate. She did hav e significant pain in the left hip which required ongoing narcotic. The treatment included for manag ing her pain. Prior to her fall, she was fully independent without the need of an assistive device. Given the patient's recent surgery and risk of potential complications including the need for more c lose blood hemoglobin monitoring, she may require additional transfusion. She is determined to be a more appropriate candidate for aggressive inpatient rehabilitation, where comorbid conditions can be managed more appropriately as she receives therapy to help her return to her prior level of functioni ng. Hospitalization at a mcc or going home would likely not result in her doing her best and may result in her coming back to hospital. So, inpatient rehabilitation will help her return to her prior level of functioning and reduce the chance of rehospitalization. Past Medical History: Hypertension, anxiety, insomnia, dyslipidemia, glucose tolerance, supraventric ular tachycardia, osteoarthritis, osteopenia, duodenal ulcer, peripheral neuropathy. Allergies: PENICILLIN CAUSES HIVES AND SULFA CAUSES RASH. Medications: Tylenol 650 every 4 hours as needed, [place] 5/325 every 4 hours as needed, Xanax 0.25 mg at bedtime, amiodarone 200 mg twice daily, Eliquis 2.5 mg twice daily, Ensure 237 mL twice daily, Pe pcid 40 mg at bedtime, gabapentin 300 mg at bedtime, milk of magnesia 30 mL daily, Hemocyte Plus 1 wi th breakfast, Protonix 40 mg daily, Requip 1 mg at bedtime, rosuvastatin 5 mg at bedtime, Senokot-S 2 twice daily. Laboratory Studies: White blood cell count 9.9, hemoglobin 8.3, hematocrit 25.2, platelets 199, INR is 0.98. Sodium 132, potassium 4.0, chloride 101, carbon dioxide 27, BUN 11, creatinine 0.42, glucos e 116, calcium 8.4, magnesium 2.2, total bilirubin 1.1, AST 31, ALT 27, alkaline phosphatases did go up to 134 from 80 on the 11th, total serum protein 5.9, albumin 2.3, globulin 3.6, TSH 0.992. Urinal ysis; extremely turbid clarity and budding yeast, otherwise unremarkable. Review of Systems: She reports mild constipation since surgery, mild difficulty with sleep and mild to moderate pain in the left hip surgical site. Otherwise, she is not complaining of any other issues. Family History: Noncontributory. Social History: No alcohol, tobacco, or IV drug use. Lives with her in single family home. Physical Examination: Vital Signs: Blood pressure 132/60, pulse 81, respiratory rate 16, temperature 98.6, oxygen saturati on 96%. General: Again, Ms. Gracia was resting in her bed reading a book at the time I came in. HEENT: She is normocephalic, atraumatic. Sclerae anicteric. Oropharynx moist. Neck: Supple. Chest: Clear. Heart: Regular. Extremities: No significant clubbing, cyanosis, or edema noted. Mild postoperative expected changes in the left hip surgical site. Neuro: In terms of neurologically, she has no focal neurologic deficits. Pain related to recent cielo rick in the left lower extremity. Otherwise, no focal findings on neurological examination. Additional Studies: An EKG done on 03/23/2024 showed sinus bradycardia, first-degree AV block, other collier unremarkable. Echocardiogram on 03/24/2024, normal left ventricular systolic function. Left ve ntricular ejection fraction 55% to 60%. Normal diastolic function. Chest x-ray on 03/23/2024, no de finite evidence of acute cardiopulmonary abnormalities and the hip x-ray on 03/23, displaced left int ertrochanteric hip fracture. Rehab And Medical Assessment And Plan: Ms. Gracia is admitted to the inpatient rehabilitation unit with impairment category 07, fracture of lower extremity. Her impairment group code is 08.11, unilat eral left hip fracture. Etiologic diagnosis, displaced left intertrochanteric fracture, status post closed reduction with intramedullary yusef fixation using Affixus nail system with a long yusef. In taj tion, hypertension, anxiety, insomnia, dyslipidemia, glucose intolerance, supraventricular tachycardi a, osteoarthritis, osteopenia, peripheral neuropathy due to abdominal ulcer and postoperative anemia. Plan: 1.She will have physical and occupational therapy, 3 hours a day, 5 of 7 days. 2.We will for constipation, use Senokot-S, milk of mag, Dulcolax suppository, and fleets enema as ne eded. 3.Dyslipidemia treated with Crestor 5 mg at night. 4.Requip for extra leg movements or restless leg and symptoms at night 1 mg at bedtime, Protonix for GE reflux and ulcer disease, Ensure Enlive for mild malnutrition, Hemocyte Plus for anemia, milk of mag again for her constipation. Note, gabapentin 300 mg at night will help with neuropathic pain and peripheral neuropathy, Eliquis 2.5 mg twice daily for DVT prophylaxis, amiodarone for heart rate and blood pressure control, Xanax for anxiety, [place] 5/325 every 4 hours as needed, and Tylenol 650 ever y 4 hours as needed for pain. [place] for moderate to severe pain. Regular Tylenol for cymq-ac-nfkoxm te pain. Comorbidities That Are Impacting Rehabilitation: As noted, she has mild constipation and some postop erative pain as well as the significant drop in blood hemoglobin level requiring transfusion. Those will be addressed on an ongoing basis. High blood pressure, glucose intolerance also noted. Dyslipi demia will also be addressed by Dr. Chang, her primary care physician is following her closely and gopi ruiz assist with this. She is a fall risk. Fall precautions to be adhered to at all times during thera py. Gait belt with the wheelchair in tow as the patient is ambulating with a walker at all times. Rehab Specific Plan: Ms. Gracia will have physical and occupational therapy, 3 hours a day, 5 of 7 days, to improve her ability to transfer from a bed to a chair to a rolling walker, to be able to mob ilize around the unit and go up and down steps at least 10 steps and mobilize a wheelchair as well, t o go on and off a toilet, in and out of a tub, and a walk-in shower. She will work with occupational therapy to help with activities of daily living, for dressing upper and lower body, and donning and doffing footwear and managing any assistive device that she will require. Ms. Gracia has a good understanding of the process of admission to the inpatient rehabilitation [facility] and how she will benefit from physical and occupational therapy. She will have 24 hours a day, 7 days a week, skilled rehabilitation and nursing, daily physician evaluation and management, and [facility] service evaluation and management for her discharge planning, home equipment, and continuing ther apy likely via Home Health. She will be followed by Dr. Chang, her primary care physician [facility]. Barriers To Discharge: At this point, her big barriers may be pain in addition to potential for need ing another blood transfusion. She does have comorbidities, which are being managed on a daily basis and not likely to result in a barrier to her being discharged home which is a plan. If need be, ski ed nursing may be considered, but is unlikely at this point. Length Of Stay: 12 to 14 days. Disposition: Back home with family and continue therapy via Home Health. Prognosis: Good. Code Status: Full code. Rehab Specific Goals: 1.Become independent with upper and lower body dressing and donning and doffing footwear. 2.Independently ambulate 250 feet with a rolling walker. 3.Independently propel a wheelchair 250 feet. 4.Independently go up and down 10 steps with bilateral handrails. 5.Independently perform all activities of daily living. 6.Independently perform all issues of cognitive functioning including safety awareness, managing med ications, physician followup, and hip precautions which she has the weightbearing as tolerated status . The above goals were reviewed with Ms. Gracia and she is in agreement. By signing this document, I acknowledge I personally performed a full physical examination on Ms. Naun powell no later than 24 hours after her admission to the inpatient rehabilitation facility and determin ed that she is able to tolerate the above course of treatment at an intensive level for a reasonable period of time. A detailed individualized plan of care for her will be completed by hospital day 4 b ased on the preadmission screen, history and physical, and therapy evaluations. RICARDO Voice ID: [id number]
[2024-03-30] MEDS: ALPRAZOLAM 0.25 MG TABLET PO PRN (02:26)
[2024-03-30 05:12] LABS: Absolute Eosinophils 0.2 K/uL (0-0.5); Absolute Lymphocytes (CBC) 1.5 K/uL (0.7-4.9); Absolute Monocytes 1.2 K/uL (0.1-1.3); Absolute Neutrophil 6.3 K/uL (1.8-8.0); Basophils % 0.5 % (0-1.3); Eosinophils % 2.6 % (0-4.4); Hematocrit 26.5 % (36.0-45.0); Lymphocytes % 15.9 % (15.3-44.8); MCH 32.6 pg (27.0-35.0); MCHC 33.9 g/dL (32.0-36.0); MPV 8.5 fL (7.6-11.3); Monocytes % 12.6 % (3.3-12.3); Neutrophils % 68.4 % (41.7-73.7); Nucleated Red Blood Cells % 0.4 % (0-0); Platelets 254 thou/uL (152-406); RBC Red Blood Cell Count 2.76 M/uL (3.86-4.86); Red Cell Distribution Width 14.6 % (12.1-15.2)
[2024-03-30 05:39] LABS: Albumin 2.4 g/dL (3.4-5.0); Anion Gap 8.8 mEq/L (5.0-15.0); Magnesium 2.5 mg/dL (1.6-2.4); Potassium 3.8 mEq/L (3.5-5.1); Prealbumin 7.3 mg/dL (20-40)
[2024-03-30] MEDS: PANTOPRAZOLE 40MG TABLET PO SCH (06:48)
[2024-03-30] MEDS: FE SULF/FA/VIT B COMP & C TAB PO SCH (08:34)
[2024-03-30] MEDS: LIDOCAINE 4% PATCH TOP SCH (14:14)
[2024-03-30] MEDS: BISACODYL 10 MG RECTAL SUPP PR ONE (15:31)
--- NOTE | 2024-03-30 17:01 | PN ---
Date of Progress Note: 03/30/2024 Subjective: Patient was seen this morning for followup. She was on rehab floor, lying in bed, not i n any distress. Denies any new complaints. Objective: Vital Signs: This morning, temperature 97.7, pulse 79, respiratory rate 18, blood pressu re 136/65, oxygen saturation 96% on room air. HEENT: Unremarkable. Lungs: Clear to auscultation. Heart: Sounds normal. Abdomen: Soft. Bowel sounds normal. No guarding, rigidity, tenderness, or distention. Extremities: No leg edema. Laboratory Data: White count 9.10, hemoglobin 9, platelets 254. Sodium 135, potassium 3.8, chloride 103, bicarb 27, BUN 12, creatinine 0.43, glucose 118, albumin 2.4. Impression: 1.Left hip fracture. 2.Malnutrition, moderate. 3.Anemia due to acute blood loss. 4.Supraventricular tachycardia. 5.Hypertension. Plan: We will go ahead and continue current antibiotic, continue current medications, continue curre nt pain medication per order. The patient is on amiodarone 200 mg b.i.d. and we will continue that f or her SVT. Continue DVT prophylaxis with Eliquis 2.5 mg twice a day. She was encouraged to use nut ritional supplement like Ensure to help improve her low protein level and this was discussed with her today as well. Physical therapy to be provided under guidance of Dr. Goldberg and the patient is on Senokot-S 2 tablets 2 times a day. She did not have a bowel movement yesterday and she also reports that she did not get suppository yesterday. So we will go ahead and order one to be given today. We will see her deyanira galarza for followup. PAOLA/MODL Voice ID: [id number] Report ID: [id number]
[2024-03-31] MEDS: PRESERVISION AREDS PO SCH (07:15)
[2024-03-31] MEDS: HOME MED 1 EA UNK (Biotin 5,000 MCG) PO SCH (07:35)
[2024-03-31] MEDS: ENSURE CLEAR 200 ML CAN PO SCH (08:26)
[2024-03-31] MEDS: METOPROLOL TAR 50 MG TAB PO ONE (10:14)
[2024-03-31] MEDS: VERAPAMIL SR 180 MG TAB PO ONE (12:37)
--- NOTE | 2024-03-31 12:59 | P.CNS ---
Date of Consult: 03/31/24 Chief Complaint: SVT History of Present Illness: Patient with PMH of SVT, was seen earlier for preoperative clearance for surgery, patient went into SVT multiple times during hospital stay, one of them thought to be flutter so she was started n amdioarone and eliquis. today she went back into SVT. Allergies Penicillins Allergy (Verified 03/29/24 11:22) facial swelling, hives, itching Sulfa (Sulfonamide Antibiotics) Allergy (Verified 03/29/24 11:22) Rash Home medications list reviewed: Yes Home Medications: Acetaminophen [Tylenol] 650 mg PO Q4HP PRN 03/29/24 Alprazolam [Xanax] 0.25 mg PO BEDTIME PRN 03/29/24 Amiodarone HCl [Cordarone Tab] 200 mg PO BID 03/29/24 Apixaban [Eliquis] 2.5 mg PO BID 03/29/24 Docusate/Senna [Senokot-S] 2 tab PO BEDTIME 03/29/24 Famotidine [Pepcid] 40 mg PO BEDTIME 03/29/24 Hydrocodone 5/APAP 325 [[place] 5/325*] 1 tab PO Q4HP PRN 03/29/24 Iron/FA/Vit B-Com W/C [Hemocyte Plus*] 1 cap PO DAILY 03/29/24 Mag Hydroxide 8% [Milk Of Magnesia*] 30 ml PO DAILY PRN 03/29/24 Pantoprazole [Protonix Tab*] 40 mg PO DAILY 03/29/24 RX: Gabapentin 300 mg PO BEDTIME 03/29/24 RX: Rosuvastatin [Crestor*] 1 tab PO BEDTIME 03/29/24 Ropinirole HCl [Requip*] 1 mg PO BID 03/29/24 - Past Medical/Surgical History Diabetic: No -: Hypertension -: SVT -: Chronic back pain - Social History Alcohol use: No CD- Drugs: No Caffeine use: No Place of Residence: Home Review of Systems 10-point ROS is otherwise unremarkable Physical Examination Temp Pulse Resp BP Pulse Ox 97.5 F 137 H 16 109/60 99 03/31/24 06:40 03/31/24 12:44 03/31/24 08:19 03/31/24 12:44 03/31/24 08:19 General: Alert, In no apparent distress HEENT: Atraumatic, PERRLA, Mucous membr. moist/pink, EOMI, Sclerae nonicteric Neck: Supple, 2+ carotid pulse no bruit, No LAD, Without JVD or thyroid abnormality Respiratory: Clear to auscultation bilaterally, Normal air movement Cardiovascular: Regular rate/rhythm, Normal S1 S2 Gastrointestinal: Normal bowel sounds, No tenderness Musculoskeletal: No tenderness Integumentary: No rashes Neurological: Normal gait, Normal speech, Normal tone, Normal affect Lymphatics: No axilla or inguinal lymphadenopathy - Problems (1) SVT (supraventricular tachycardia) Current Visit: No Status: Acute Plan: give Verapamil 360 mg po x1 now then continue daily resume patient Toprol XL 50 mg daily continue Amiodarone 200 mg po BID Continue Eliquis.
[2024-03-31] MEDS ORDERED: LIDOCAINE 4% PATCH TOP SCH (13:30)
[2024-03-31] MEDS: METOPROLOL XL 50 MG TAB PO SCH (18:30)
[2024-03-31] MEDS: MAGNESIUM OXIDE 400 MG TAB PO SCH (20:08)
[2024-03-31] MEDS ORDERED: METOPROLOL XL 50 MG TAB PO SCH (21:00)
--- NOTE | 2024-04-01 02:13 | PN ---
Date of Progress Note: 03/31/2024 Subjective: The patient was seen this morning for followup. No new complaints or problems reported by the patient. She was lying in bed, not in any distress. Objective: Vital Signs: Reviewed. HEENT: Unremarkable. Lungs: Clear to auscultation. Heart: Sounds normal. Abdomen: Soft. Bowel sounds normal. No guarding, rigidity, tenderness, distention. Extremities: No leg edema. Impression: 1.Left hip fracture. 2.Supraventricular tachycardia. 3.Hypertension. 4.Acute blood loss anemia. Plan: We will continue current anticoagulation therapy, which is Eliquis. Continue current pain med ication. The patient is on amiodarone 200 mg twice a day and we will continue that. Continue physic al therapy under guidance of Dr. Goldberg. After I saw the patient today, she went into supraventric ular tachycardia problem and she had palpitation. EKG showed SVT and when nurse contacted me, 50 mg of metoprolol p.o. x1 dose was ordered and nurse was asked to re-establish IV access and contact card iologist, and subsequently Dr. Johnson ordered verapamil for her. I will see her tomorrow for followu heath GUEVARA/MODL Voice ID: [id number] Report ID: [id number]
--- NOTE | 2024-04-01 02:26 | PN ---
Date of Progress Note: 03/31/2024 Time Of Service: 1 p.m. History: It is noted that earlier today, Ms. Gracia had some episodes of significant supraventricul ar tachycardia with heart rate going over 200, around 207. While in the acute care unit, she notes t hat some of her home medications were discontinued and she is now back on those including amiodarone and beta abel. She did have therapy interrupted while this was occurring. She was in bed and sophie y mildly symptomatic. She had an EKG that identified supraventricular tachycardia. Dr. Chang and her carry all driver were notified and made adjustments to her medications. Objective: No fevers, chills, nausea, vomiting, mild chest fluttering sensations, and mild pain in t he left intertrochanteric fracture region, but no significant worsening there. Physical Examination: Vital Signs: Blood pressure 117/57, pulse 70, respiratory rate of 16, and temperature of 97.5. General: Ms. Gracia is resting in bed. HEENT: She is normocephalic, atraumatic. Sclerae are anicteric. Oropharynx pink, moist. Neck: Supple. Chest: Clear. Heart: Regular. She has good hemostasis at the left intertrochanteric hip surgical site. Laboratory Studies: White blood cell count 9.1, hemoglobin 9.0, platelets 254. Sodium 135, potassiu m 3.8, chloride 103, carbon dioxide 27, BUN 12, creatinine 0.43, glucose 118, calcium 8.9, magnesium 2.5, albumin 2.4, prealbumin very low at 7.3. Urinalysis extreme turbidity, trace budding yeast. She was seen today by the Cardiology service and with the plan of the verapamil and Toprol and amioda heydi along with Eliquis. Also followed by Dr. Chang, her primary care physician. Medications: Medications include, [place] 5/325 every 4 hours as needed, Tylenol 650 mg every 4 hours, Xanax 0.25 mg at bedtime as needed, Cordarone 200 mg twice daily, Eliquis 2.5 mg twice daily, Ensure Clear 237 mL twice daily, she has Pepcid 40 mg at bedtime, gabapentin 300 mg at bedtime, lidocaine p atch apply 2 topically daily to the left lower extremity lateral hip area and thigh area, milk of mag nesia 30 mL for constipation daily, magnesium oxide 400 mg twice daily, Toprol 50 mg at bedtime, Hemo cyte Plus 1 tablet daily, Protonix 40 mg daily, Requip 1 mg at bedtime, Crestor 5 mg at bedtime, Seno ayush-S 2 twice daily as needed. Progress Made With Physical, Occupational, And Speech Therapy: Today with physical therapy, she was able to complete gait training 50 feet with minimal assistance touchdown weightbearing status. She d id complete wheelchair mobilization 200 feet with minimal assistance. She did have a rest break and again was noted. Heart rate actually was up to 205 at one point and she did return back to bed. Wit h her occupational therapy, bed mobility, moderate assistance supine sit at edge of bed required mode rate assistance and heart rate was around 130-140 when the occupational therapist was working with he r, blood pressure 111/56 and then heart rate down to over 73. She did have difficulty with lower bod y dressing and donning and doffing socks required tcgcwqnc-ms-vjladwj assistance. Assessment: Ms. Gracia is an 79-year-old patient admitted to rehabilitation unit with the left inte rtrochanteric hip fracture. She has episodes of supraventricular tachycardia with significant elevat ion in heart rate that is now addressed by multiple modalities including calcium channel blockers and beta-blockers. She is followed by carry all driver and Dr. Chang, her primary care physician. She has d yslipidemia, decreased mobility, decreased physical functioning, glucose intolerance, osteoarthritis, osteopenia, peripheral neuropathy, abdominal pain, anxiety, insomnia, and hypertension. Plan: 1.She will continue with physical and occupational therapy 3 hours a day, 5 of 7 days. 2.Comorbid conditions managed by Dr. Chang and carry all driver. 3.She has DVT prophylaxis on board. Comorbidities That Are Impacting Rehabilitation: Include supraventricular tachycardia and we will be holding therapy if she has sustained tachycardias above 150. LB/MODL Voice ID: [id number] Report ID: [id number]
[2024-04-01] MEDS: VERAPAMIL SR 180 MG TAB PO SCH (07:58)
--- NOTE | 2024-04-01 11:25 | P.PN ---
Subjective Date of Service: 04/01/24 Chief Complaint: SVT Subjective: No new changes, No C/O voiced, Tolerating diet, Ambulating, Improving Review of Systems 10-point ROS is otherwise unremarkable Physical Examination - Vital Signs Temperature: 96.9 F Blood Pressure: 112/56 Pulse: 67 Respirations: 18 Pulse Ox (%): 95 - Physical Exam General: Alert, In no apparent distress HEENT: Atraumatic, PERRLA, EOMI Neck: Supple, JVD not distended Respiratory: Clear to auscultation bilaterally, Normal air movement Cardiovascular: Regular rate/rhythm, Normal S1 S2 Gastrointestinal: Normal bowel sounds, No tenderness Musculoskeletal: No tenderness Integumentary: No rashes Neurological: Normal speech, Normal tone, Normal affect Lymphatics: No axilla or inguinal lymphadenopathy - Studies Medications List Reviewed: Yes Assessment And Plan - Current Problems (Diagnosis) (1) SVT (supraventricular tachycardia) Current Visit: No Status: Acute Plan: will lower Verapamil to 240 mg po daily, due to patient soft BP. continue Toprol XL 50 mg daily continue Amiodarone 200 mg po BID Continue Eliquis.
--- NOTE | 2024-04-01 19:38 | PN ---
Date of Progress Note: 04/01/2024 Time Of Service: 1:10 p.m. Subjective: Ms. Gracia is doing much better today. Blood pressures and heart rate are better contr olled. She is feeling happier about therapy. Says the pain in the left hip intertrochanteric fractu re surgical site is managed. Objective: No fevers or chills. No nausea or vomiting. No myalgias or arthralgias involving the le ft hip surgical site. No rash. No psychiatric complaints. No other positives on a 10 point systems review. Physical Examination: Vital Signs: Blood pressure 112/56, pulse 67, respiratory rate 18, temperature 96.9, oxygen saturati on 95%. Weight 165 pounds, height 5 feet 6 inches, BMI 26.6. General: Ms. Gracia again is lying in bed between therapy sessions. HEENT: She is normocephalic, atraumatic. Sclerae anicteric. Oropharynx pink, moist. Neck: Supple. Chest: Clear. Heart: Regular. Extremities: No significant clubbing, cyanosis, or edema. Left lower extremity mild postoperative e xpected changes from her surgery. Laboratory Studies: No new laboratory studies. X-ray/imaging: No new x-rays or imaging. Medications: Her medications have been reviewed. The changes do include verapamil 240 mg daily. Maribell hernandez has metoprolol 50 mg at bedtime, magnesium oxide 400 mg twice daily along with Ensure Clear 237 mL daily. Other medications are continued unchanged. Progress Made With Physical, Occupational Therapy: Today with physical therapy, she did complete bed mobility with minimum to mod assist. Multiple pxf-ng-chztk transfers with minimum assistance, stand and pivot transfers with minimum to moderate assistance. Mobilized a wheelchair [address] guard with minimum assistance with surface changes and going backwards. It is noted that her lowe st blood pressure standing 99/55, and while supine, 101/55. While standing, heart rate was 72. Whil e supine, heart rate 61. In terms of progress with occupational therapy, she was able to get her yeni wer today, had her hair in good shape and with minimum assistance, felt a lot blind cleaner. She was able to dry her buttocks, left foot, perform upper body dressing with setup assistance, moderate assistanc e for lower body dressing, maximum assistance for donning and doffing her socks. Assessment: Ms. Suzie Gracia is an 79-year-old patient admitted to the rehabilitation unit with a left intertrochanteric hip fracture, status post surgical repair. She has decreased mobility, decre ased physical functioning, anxiety. She has supraventricular tachycardia, mild malnutrition, neuropa thic pain, anemia postoperative, dyslipidemia, restless leg symptoms, and constipation. Plan: She will continue with physical and occupational therapy and continue all comorbid condition m edications which have been noted. For DVT prophylaxis, she continues Eliquis 2.5 mg twice daily. No te comorbidities that are impacting rehabilitation, she does have supraventricular tachycardia with a n episode of pulse reaching about 205 and that has been addressed by her tapeman and mohan Bragg primary care physician. EVELIA/PIERCE Voice ID: [id number] Report ID: [id number]
[2024-04-01] MEDS: AMIODARONE HCL 200 MG TAB PO SCH (20:00)
[2024-04-01] MEDS: METOPROLOL XL 50 MG TAB PO SCH (20:00)
--- NOTE | 2024-04-01 20:14 | PN ---
Date of Progress Note: 04/01/2024 Subjective: The patient was seen this morning for followup. No new complaints or problems reported by the patient. She was lying in bed, not in any distress. Objective: Vital Signs: Reviewed. HEENT: Unremarkable. Lungs: Clear to auscultation. Heart: Sounds normal. Abdomen: Soft. Bowel sounds normal. No guarding, rigidity, tenderness, distention. Extremities: No leg edema. Impression: 1.Left hip fracture. 2.Acute blood loss anemia. 3.Hypertension. 4.Supraventricular tachycardia. Plan: We will go ahead and continue amiodarone. Continue current pain medication. We will restart verapamil 360 mg daily as of this morning. The patient is on metoprolol 50 mg daily in the evening t vignesh. Dr. Johnson from Cardiology called me later today after I saw her this morning and the patient d id receive her verapamil 360 mg this morning, but then that resulted in drop in her blood pressure wi th systolic blood pressure between 90 to 100, so Dr. Johnson has suggested to lower dose to 240 mg sta rting tomorrow. This morning, when I saw the patient, she told me that when she saw her electrophysi ologist, Dr. Melo, recently about a month to two months ago he had discussed with her regarding abla tion therapy. Now after this hospital admission, she has decided to go for such treatment and she wi ll follow up with him on outpatient basis. I will see her tomorrow for followup. PAOLA/MODL Voice ID: [id number] Report ID: [id number]
[2024-04-02] MEDS: VERAPAMIL SR 240 MG TABLET PO SCH (07:18)
[2024-04-02] MEDS: NITROFURAN MACRO 100 MG CAP PO SCH (11:39)
[2024-04-02] MEDS: CYANOCOBALAMIN 1000MCG/ML INJ IM ONE (14:48)
--- NOTE | 2024-04-02 21:20 | PN ---
Date of Progress Note: 04/02/2024 Time Of Service: 1:10 p.m. Subjective: Ms. Gracia is resting in bed. She did have an episode of low blood pressure and heart rate and briefly therapy was held, but then was able to be resumed. At the time of the low pressure and heart rate, the therapist noted she was not exhibiting any significant symptoms such as dizziness , loss of vision, or generalized weakness. Objective: No fevers, chills, nausea, vomiting, myalgias, arthralgias. No rash. No psychiatric com plaints. Physical Examination: Vital Signs: Blood pressure 135/60, pulse 66, respiratory rate 18, temperature 97.8, oxygen saturati on 95%. Weight 165 pounds, height 5 feet 6 inches. General: Ms. Gracia is resting comfortably in bed. at bedside. Medications: The medications were reviewed with her and how she is doing. There have been adjustmen ts made by her english as a second language teacher and Dr. Chang, her primary care physician. She has Macrobid on board for urinary tract infection. Her Cordarone 200 mg daily discontinued; it was twice daily, then daily, an d now held. She does have the metoprolol 50 mg at night held. She has had B12 injection, reporting some decreased fatigue in general and that is to help with her energy level. Otherwise, she continue s with Requip for restless legs, Protonix for reflux, Crestor for dyslipidemia, Senokot for constipat ion, HemocytePlus for anemia, magnesium oxide for muscle spasm, gabapentin for neuropathic pain. She is on Xanax for anxiety, Eliquis 2.5 mg twice daily for DVT prophylaxis. Progress Made With Physical And Occupational Therapy: With physical therapy today, she did complete bed mobilization with minimum assistance. Multiple zdm-lt-fpzzx transfers and xwqiq-wn-bguzm transfe rs done with minimum to moderate assistance. She had some low blood pressure and throughout the day had poor energy. She did ambulate 15 feet twice with minimum assistance. Mobilized wheelchair 150 f eet with minimum assistance. In terms of the orthostatics, while supine 102/56, pulse 63; after maria fernanda ding from a minute, 90/53, pulse 61; after standing 3 minutes, 85/79, pulse of 57; after standing 5 m inutes, 121/57, pulse 57; and while in the wheelchair, mobilizing 112/57 and a heart rate of 56. With occupational therapy, she did bed mobility, wheelchair to bed transfer, and wheelchair to toilet transfer with minimum assistance. Performed upper body light exercises [facility], did 20 repetitions while heart rate was monitored. Heart rate ranged from 44 to 58 without sympt oms of lightheadedness worsening and stopping her. Assessment: Ms. Gracia is in the rehabilitation unit with a displaced left intertrochanteric fractu re, for which she is doing very well. She does have episodes of supraventricular tachycardia, addres sed by Dr. Chang, her english as a second language teacher. Medications have been adjusted. She has had some orthostatic ishan nges as well and again antihypertensives are being adjusted. Otherwise, she has decreased mobility, decreased physical functioning, mild malnutrition, neuropathic pain, anemia, dyslipidemia, restless l egs, and constipation. Plan: She will continue with physical and occupational therapy 3 hours a day, 5 of 7 days. Continue with DVT prophylaxis. Continue [place] and Tylenol for pain, Xanax for anxiety, Eliquis again as note d, Ensure Clear twice daily for malnutrition, gabapentin for neuropathic pain, Pepcid for reflux, mil k of magnesia for constipation, magnesium oxide for muscle spasms, HemocytePlus for malnutrition. Maribell hernandez has Macrobid on board for her E coli and Enterococcus faecalis infection in the urine. She still h as the [place] mg daily, Senokot-S 2 twice daily, Crestor 5 mg at bedtime, Requip 1 mg at be dtime. LB/MODL Voice ID: [id number] Report ID: [id number]
--- NOTE | 2024-04-02 22:26 | PN ---
Date of Progress Note: 04/02/2024 Subjective: The patient was seen this morning for followup. No new complaints or problems reported by the patient, lying in bed, not in distress. She had a bowel movement yesterday. Denies any abdom inal pain, nausea, vomiting. Objective: Vital Signs: Reviewed. HEENT: Unremarkable. Lungs: Clear to auscultation. Heart: Sounds normal. Abdomen: Soft. Bowel sounds normal. No guarding, rigidity, tenderness, distention. Extremities: No leg edema. Impression: 1.Urinary tract infection. 2.Hypertension. 3.Supraventricular tachycardia. 4.Left hip fracture. 5.Acute blood loss anemia. Plan: The patient's urine culture results reviewed and nitrofurantoin was ordered, but once again, i n her [facility] pharmacy did not have supply available, so I did send prescription to outside [facility] and her brought medication to hospital, so we will continue her antibiotic using this s upply. Continue current Eliquis for DVT prophylaxis. Continue verapamil and metoprolol per order an d pain medication per order. The patient will continue to receive physical therapy under guidance of Dr. Goldberg and I will see her tomorrow for followup. PAOLA/MODL Voice ID: [id number] Report ID: [id number]
[2024-04-03 06:24] LABS: Absolute Basophils 0.1 K/uL (0-0.5); Absolute Eosinophils 0.1 K/uL (0-0.5); Absolute Lymphocytes (CBC) 1.9 K/uL (0.7-4.9); Absolute Monocytes 0.7 K/uL (0.1-1.3); Absolute Neutrophil 7.3 K/uL (1.8-8.0); Basophils % 0.6 % (0-1.3); Eosinophils % 1.5 % (0-4.4); Hematocrit 29.8 % (36.0-45.0); Hemoglobin 9.8 g/dL (12.0-15.0); MCH 32.5 pg (27.0-35.0); MCHC 32.7 g/dL (32.0-36.0); MCV 99.4 fL (80-100); MPV 8.3 fL (7.6-11.3); Neutrophils % 71.9 % (41.7-73.7); Nucleated Red Blood Cells % 0.3 % (0-0); Platelets 419 thou/uL (152-406); Red Cell Distribution Width 15.7 % (12.1-15.2)
[2024-04-03 06:40] LABS: Albumin 2.6 g/dL (3.4-5.0); Anion Gap 6.9 mEq/L (5.0-15.0); Magnesium 2.6 mg/dL (1.6-2.4); Potassium 3.9 mEq/L (3.5-5.1); Prealbumin 12.7 mg/dL (20-40)
[2024-04-03] MEDS ORDERED: AMIODARONE HCL 200 MG TAB PO SCH (08:00)
--- NOTE | 2024-04-03 11:37 | EKG ---
Test Date: 2024-03-31 Test Time: 09:50:07 Tea Bag Machine Tender: N. T MEASUREMENT RESULTS: Intervals: Rate: 183 MA: QRSD: 110 QT: 260 QTc: 453 [place]: P: MA: QRS: 25 T: 219 INTERPRETIVE STATEMENTS: Supraventricular tachycardia Marked ST abnormality, possible lateral subendocardial injury Abnormal ECG Compared to ECG 03/27/2024 21:43:48 ST (T wave) deviation now present Sinus rhythm no longer present First degree AV block no longer present Electronically Signed On 04-03-24 11:36:38 FISH PEDDLER by Miguelito Johnson
[2024-04-03] MEDS: ACETAMINOPHEN 325 MG TABLET PO PRN (12:48)
[2024-04-03] MEDS ORDERED: BISACODYL 10 MG RECTAL SUPP ONE (19:16)
[2024-04-03] MEDS: BISACODYL 10 MG RECTAL SUPP PR ONE (19:22)
--- NOTE | 2024-04-03 22:43 | PN ---
Date of Progress Note: 04/03/2024 Subjective: Patient was seen this morning for followup. She was lying in bed, not in any distress. Reports that yesterday late afternoon, evening time, her pulse rate had dropped down into range of 4 0-50, and she really felt very weak and tired and corrugator machine operator, Dr. Johnson discontinued her amiodaron e at that time. The patient continues to remain on her verapamil and metoprolol. Objective: Vital Signs: Reviewed. HEENT: Unremarkable. Lungs: Clear to auscultation. Heart: Sounds normal. Abdomen: Soft. Bowel sounds normal. No guarding, rigidity, tenderness, or distention. Extremities: No leg edema. Laboratory Data: WBC 10.10, hemoglobin 9.8, platelets 419. Sodium 139, potassium 3.9, chloride 109, bicarb 27, BUN 16, creatinine 0.48, glucose 102. Impression: 1.Left hip fracture. 2.Acute blood loss anemia. 3.Supraventricular tachycardia. 4.Hypertension. Plan: We will go ahead and continue current medication. Continue current pain medicine. Continue E liquis for DVT prophylaxis. Continue verapamil in the morning and metoprolol in the evening and current stool softener. Physical Therapy to be provided under guidance of Dr. Goldberg and I will se e her tomorrow for followup. PAOLA/MODL Voice ID: [id number] Report ID: [id number]
[2024-04-04] MEDS: TRAMADOL HCL 50 MG TAB PO PRN (10:34)
[2024-04-04] MEDS: HYDROCODONE/APAP 5/325 MG TAB PO PRN (12:59)
--- NOTE | 2024-04-04 13:27 | P.RH.PN ---
Estimated Length of Stay: 14 Expected Discharge Date: 04/11/24 Discharge Disposition Plan: Home Family Support: Yes Senior Care Goal: Mobility, Transfers, Self Care Vital Signs: Last Vital Signs Temp 97.0 F 04/04/24 08:00 Pulse 64 04/04/24 08:38 Resp 12 04/04/24 08:00 BP 138/65 04/04/24 08:38 Pulse Ox 98 04/04/24 08:00 Laboratory: Laboratory Last Values WBC 10.10 thou/uL (4.3-10.9) 04/03/24 05:56 RBC 3.00 M/uL (3.86-4.86) L 04/03/24 05:56 Hgb 9.8 g/dL (12.0-15.0) L 04/03/24 05:56 Hct 29.8 % (36.0-45.0) L 04/03/24 05:56 MCV 99.4 fL (80-100) 04/03/24 05:56 MCH 32.5 pg (27.0-35.0) 04/03/24 05:56 MCHC 32.7 g/dL (32.0-36.0) 04/03/24 05:56 RDW 15.7 % (12.1-15.2) H 04/03/24 05:56 Plt Count 419 thou/uL (152-406) H 04/03/24 05:56 MPV 8.3 fL (7.6-11.3) 04/03/24 05:56 Neutrophils % 71.9 % (41.7-73.7) 04/03/24 05:56 Lymphocytes % 19.0 % (15.3-44.8) 04/03/24 05:56 Monocytes % 7.0 % (3.3-12.3) 04/03/24 05:56 Eosinophils % 1.5 % (0-4.4) 04/03/24 05:56 Basophils % 0.6 % (0-1.3) 04/03/24 05:56 Absolute Neutrophils 7.3 K/uL (1.8-8.0) 04/03/24 05:56 Absolute Lymphocytes 1.9 K/uL (0.7-4.9) 04/03/24 05:56 Absolute Monocytes 0.7 K/uL (0.1-1.3) 04/03/24 05:56 Absolute Eosinophils 0.1 K/uL (0-0.5) 04/03/24 05:56 Absolute Basophils 0.1 K/uL (0-0.5) 04/03/24 05:56 Sodium 139 mEq/L (136-145) 04/03/24 05:56 Potassium 3.9 mEq/L (3.5-5.1) 04/03/24 05:56 Chloride 109 mEq/L (98-107) H 04/03/24 05:56 Carbon Dioxide 27 mEq/L (21-32) 04/03/24 05:56 Anion Gap 6.9 mEq/L (5.0-15.0) 04/03/24 05:56 BUN 16 mg/dL (7-18) 04/03/24 05:56 Creatinine 0.48 mg/dL (0.55-1.02) L 04/03/24 05:56 Est GFR (CKD-EPI) 95 ml/min (=/>90) 04/03/24 05:56 Glucose 102 mg/dL (74-106) 04/03/24 05:56 Calcium 8.8 mg/dL (8.5-10.1) 04/03/24 05:56 Magnesium 2.6 mg/dL (1.6-2.4) H 04/03/24 05:56 Albumin 2.6 g/dL (3.4-5.0) L 04/03/24 05:56 Prealbumin 12.7 mg/dL (20-40) L 04/03/24 05:56 Urine Color Yellow (Yellow) 03/29/24 13:50 Urine Clarity Extremely turbid (Clear) H 03/29/24 13:50 Urine pH 7.0 (5.0-7.0) 03/29/24 13:50 Ur Specific [place] 1.007 (1.005-1.030) 03/29/24 13:50 Glucose (UA)(Auto) Negative (Negative) 03/29/24 13:50 Urine Ketones Negative (Negative) 03/29/24 13:50 Urine Blood Negative (Negative) 03/29/24 13:50 Urine Nitrite Negative (Negative) 03/29/24 13:50 Urine Bilirubin Negative (Negative) 03/29/24 13:50 Urine Urobilinogen Normal (Normal) 03/29/24 13:50 Ur Leukocyte Esterase Negative Abbi/uL (Negative) 03/29/24 13:50 Urine RBC <5 /HPF (None Seen) 03/29/24 13:50 Urine WBC <5 /HPF (<5) 03/29/24 13:50 Urine WBC Clumps Rare /HPF (None Seen) 03/29/24 13:50 Ur Squamous Epith Cells <5 /HPF (None Seen) 03/29/24 13:50 Unidentified Crystals Few /HPF (None Seen) 03/29/24 13:50 Urine Bacteria None seen /HPF (<20) 03/29/24 13:50 Urine Yeast (Budding) Trace /HPF (None Seen) H 03/29/24 13:50 Urine Culture Reflexed Not needed 03/29/24 13:50 Urine Total Protein Negative (Negative) 03/29/24 13:50 Weight: 165 lb Wound Present: No Closed Surgical Incision Present: Yes Negative Pressure Wound Therapy Present: No Physician Update: She has left later femoral cutaneous nerve pain with sitting, relieved by standing. Labs are stable. Met all STG, CGA with lower body dressing. Ambulating with RW 53' with min assist. WC 110' with supervision. Summary: Patient's care plan and assistant terminal manager goals have been reviewed and revised as necessary. Please see the Rehabilitation Signature page for all necessary signatures.
--- NOTE | 2024-04-04 15:45 | EKG ---
Test Date: 2024-04-02 Test Time: 15:08:04 Route Agent: OLIVA MEASUREMENT RESULTS: Intervals: Rate: 47 [place]: QRSD: 86 QT: 576 QTc: 509 [place]: P: MI: QRS: 31 T: 14 INTERPRETIVE STATEMENTS: Atrial fibrillation with slow ventricular response with a competing junctional pacemaker Prolonged QT Abnormal ECG Compared to ECG 03/31/2024 09:50:07 Prolonged QT interval now present Supraventricular tachycardia no longer present ST (T wave) deviation no longer present Electronically Signed On 04-04-24 15:43:38 FUEL DISTRIBUTION SYSTEM OPERATOR by Miguelito Johnson
--- NOTE | 2024-04-04 17:20 | PN ---
Date of Progress Note: 04/04/2024 Subjective: The patient was seen this morning for followup. She was sitting in her wheelchair. Den ied any complaints. Reports having good bowel movement. No nausea. No vomiting. No chest pain, sh ortness of breath, or palpitation. Objective: Vital Signs: Reviewed. HEENT: Unremarkable. Lungs: Clear to auscultation. Heart: Sounds normal. Abdomen: Soft. Bowel sounds normal. No guarding, rigidity, tenderness, distention. Extremities: No leg edema. Impression: 1.Left hip fracture. 2.Acute blood loss anemia. 3.Supraventricular tachycardia. 4.Hypertension. 5.Urinary tract infection. Plan: We will go ahead and continue nitrofurantoin for urinary tract infection. Continue verapamil 240 mg daily in the morning and metoprolol 50 mg daily in the evening for her supraventricular tachyc ardia, which is under very good control now. Continue pain medication per order. Continue stool sof tener per order and physical therapy to be provided under guidance of Dr. Goldberg. I will be out of town and hospitalist team to cover this patient as of now until I return back day after tomorrow on 04/06/2024, and I have discussed details with hospitalist regarding this patient today. PAOLA/MODL Voice ID: [id number] Report ID: [id number]
[2024-04-04] MEDS: GABAPENTIN 300 MG CAP PO SCH (18:53)
[2024-04-05 10:41] VITALS: BMI 27.9
--- NOTE | 2024-04-06 11:34 | PN ---
Date of Progress Note: 04/06/2024 Subjective: The patient was seen this morning for followup. No new complaints or problems reported by patient. She was sitting in the wheelchair, feeling fine. Denies any abdominal pain, nausea, or vomiting. No chest pain. No shortness of breath. Objective: Vital Signs: Reviewed. HEENT: Unremarkable. Lungs: Clear to auscultation. Heart: Sounds normal. Abdomen: Soft. Bowel sounds normal. No guarding, rigidity, tenderness, distention. Extremities: No leg edema. Impression: 1.Left hip fracture. 2.Acute blood loss anemia. 3.Hypertension. 4.Supraventricular tachycardia. Plan: We will go ahead and continue current medications. Continue current pain medications, stool s oftener, and we will continue current Eliquis. We will continue current management for supraventricu lar tachycardia. We will continue physical therapy under guidance of Dr. Goldberg, and she is schedu led to go home day after tomorrow. I will see her tomorrow for followup. PAOLA/MODL Voice ID: [id number] Report ID: [id number]
--- NOTE | 2024-04-07 11:14 | EKG ---
Test Date: 2024-03-27 Test Time: 13:16:20 Director Of Application Development: MARCO MEASUREMENT RESULTS: Intervals: Rate: 150 OK: 170 QRSD: 70 QT: 144 QTc: 227 [place]: P: -21 OK: 170 QRS: 20 T: 175 INTERPRETIVE STATEMENTS: Sinus tachycardia Marked ST abnormality, possible lateral subendocardial injury Abnormal ECG Compared to ECG 03/24/2024 06:41:41 First degree AV block no longer present ST (T wave) deviation still present Electronically Signed On 04-07-24 11:09:28 NARCOTICS AND/OR VICE DETECTIVE by Miguelito Johnson
--- NOTE | 2024-04-07 11:14 | EKG ---
Test Date: 2024-03-27 Test Time: 13:17:14 Grocery Shopper: MARCO MEASUREMENT RESULTS: Intervals: Rate: 150 [place]: 168 QRSD: 72 QT: 150 QTc: 237 [place]: P: 119 [place]: 168 QRS: 17 T: 179 INTERPRETIVE STATEMENTS: Sinus tachycardia Marked ST abnormality, possible lateral subendocardial injury Abnormal ECG Compared to ECG 03/27/2024 13:16:20 No significant changes Electronically Signed On 04-07-24 11:09:18 UTILITIES MANAGER by Miguelito Johnson
--- NOTE | 2024-04-07 21:35 | PN ---
Date of Progress Note: 04/07/2024 Subjective: The patient was seen this morning for followup. No new complaints or problems reported by the patient. This morning, when I saw her, she was lying in bed. Not in any distress. Overall f eels a lot better. Objective: Vital Signs: Reviewed. HEENT: Unremarkable. Lungs: Clear to auscultation. No wheezing. No rales. Heart: Sounds normal. Abdomen: Soft. Bowel sounds normal. No guarding, rigidity, tenderness, distention. Extremities: No leg edema. Impression: 1.Left hip fracture. 2.Acute blood loss anemia. 3.Supraventricular tachycardia. 4.Hypertension. 5.Urinary tract infection. Plan: We will go ahead and continue current antibiotic, which is nitrofurantoin. Continue verapamil and metoprolol per order. Continue Eliquis. I will see her tomorrow for followup. Plan is for the patient to go home tomorrow and I will see her in the morning for followup. PAOLA/MODL Voice ID: [id number] Report ID: [id number]
--- NOTE | 2024-04-07 23:11 | PN ---
Date of Progress Note: 04/07/2024 Time Of Service: 1:10 p.m. Subjective: Ms. Gracia is resting in bed. She is doing much better today. Said the pain in the le ft hip surgical site is much better. She has much better control of heart rate and blood pressure wi th changes made by Dr. Chang and her network contract manager. Objective: Denies any significant fevers, chills, nausea, vomiting. Mild pain again in the left hip surgical site. Physical Examination: Vital Signs: Blood pressure 130/68, pulse 60, respiratory rate 17, temperature 98.3, oxygen saturati on 97%. General: Again, Ms. Gracia is in her room. at bedside. HEENT: She is normocephalic, atraumatic. Sclerae anicteric. Oropharynx moist. Neck: Supple. Chest: Clear. Neuro: Mild postoperative expected changes in the left lower extremity, otherwise no new findings. Laboratory Studies: From the , white blood cell count 10.1, hemoglobin 9.8, platelets 419. Sodi um 139, potassium 3.9, chloride 109, carbon dioxide 27, BUN 16, creatinine 0.48, prealbumin 12.7, alb umin 2.6. X-ray/imaging: No new x-rays or imaging. Medications: Medications have been reviewed and are unchanged. She of course has gabapentin and tra madol for pain. Progress Made With Physical And Occupational Therapy: With physical therapy today, she did mobilize a wheelchair 250 feet with modified independence. Hjc-gw-ygnpe transfers and vpfpa-mu-zfngc transfer s done with modified independence. In addition, she did a hkewq-mu-gfzkv transfer independently with out an assistive device. She did 150 feet with standby assistance. Gait training, verbal cues requi red and ambulate in hospital distances over 50 feet twice and did so independently with a rolling wal ker, up and down 12 steps with standby assistance, cues needed as she did become somewhat fatigued. With occupational therapy, she has met her goals for ADL transfers independent, ready for discharge h ome with home health, independent with upper body dressing and lower body dressing, independent with grooming. Assessment: Ms. Gracia is an 79-year-old patient in the rehabilitation unit with displaced left int ertrochanteric fracture, status post surgical repair, and she is doing very well. She has decreased mobility, decreased physical functioning, which is improving very well. She had some orthostatic iss ues and very elevated heart rate. Those are addressed and are stable. She has mild malnutrition, ne uropathic pain, dyslipidemia, restless legs, constipation, again those are improved. Plan: She will continue with physical and occupational therapy, 3 hours a day, 5 of 7 days until dis charge which will be in the morning. She will continue with therapy. Continue with verapamil, trama dol, Senokot, Crestor, Requip, and she has the Macrobid on board. Continue with milk of mag, gabapen tin, Pepcid, Eliquis, and continuing also with Tylenol and [place] as needed for pain management. Comorbidities That Are Impacting Rehabilitation: Her comorbid conditions are stably managed and do n ot negatively impact her rehabilitation. EVELIA/PIERCE Voice ID: [id number] Report ID: [id number]
[2024-04-08 06:43] VITALS: BP 118/57; TEMP 97.3
--- NOTE | 2024-04-08 22:17 | DS ---
Date of Discharge: 04/08/2024 Disposition: Discharged to go home. Physical Examination: HEENT: Unremarkable. Lungs: Clear to auscultation. Heart: Sounds normal. Abdomen: Soft. Bowel sounds normal. No guarding, rigidity, tenderness, distention. Extremities: No leg edema. Discharge Medications And Instructions: 1. Continue all prior home medication. 2. Start following new medication. a. Methocarbamol 500 mg take 1 tablet by mouth 2 times a day. b. Tramadol 50 mg 3 times a day as needed for pain. c. Eliquis 2.5 mg 2 times a day. 3. Follow up at my office next week. 4. Follow up with Dr. Negro in 2 weeks. Laboratory Data: On 03/30, WBC 9.1, hemoglobin 9, platelets 254. On 04/03/2024, WBC was 10, hemoglobin 9.8, and platelets 419. Chemistry on 03/30/2024, sodium 135, potassium 3.8, chloride 103, bicarb 27, BUN 12, creatinine 0.43, glucose 118, magnesium 2.5, albumin 2.4. On 04/03/2024, sodium 139, potassium 3.9, chloride 109, bicarb 27, BUN 16, creatinine 0.48, glucose 102, magnesium 2.6, and albumin 2.6. Final Diagnoses: 1. Left hip intertrochanteric fracture, displaced. 2. Acute blood loss anemia. 3. Supraventricular tachycardia. 4. Urinary tract infection. 5. Constipation. 6. Hypertension. 7. Hyperlipidemia. 8. Malnutrition, moderate. 9. Anxiety. 10. Impaired fasting glucose. 11. Osteoarthritis, multiple sites. 12. Osteopenia. 13. Peripheral neuropathy. 14. Insomnia. Hospital Course: 79-year-old pleasant female patient who fell down at home in the driveway and was brought into emergency room and was admitted to the hospital with hip fracture. Subsequently after the surgery was done, she was brought to rehab floor. While she was on the rehab floor within first 1 or 2 days, she had episode of supraventricular tachycardia and IV amiodarone was given again and oral amiodarone was started and subsequently when she got back on her verapamil and metoprolol as a maintenance dose, she did not have any further problem with the supraventricular tachycardia. Head Track Coach, Dr. Johnson, continued to follow her up for this problem. She received physical therapy under guidance of Dr. Goldberg. Urine culture came back with some bacteria, Enterococcus faecalis, and as per sensitivity result, nitrofurantoin was given and she has received 6 to 7 days of treatment, so she does not need to go home with any more antibiotic. The patient participated well with physical therapy, and today, she was discharged to go home with above-mentioned medication and instructions. The patient is going to follow up with her central supply manager, Dr. Melo, in [place] after the holidays to have a discussion regarding ablation therapy as Dr. Melo had discussed with her during her last appointment in February. Total time spent 40 minutes. PAOLA/MODL Voice ID: [id number] Report ID: [id number]
== END 2024-04-08 12:00 | disposition home health service (06) | DRG 560 ==
LOC: 5TH 10:30
PROVIDERS: ADMIT Internal Medicine; ATTEND Internal Medicine
DX: S72.142D Displaced intertrochanteric fracture of left femur, subsequent encounter for closed fracture with routine healing (principal); D62 Acute posthemorrhagic anemia; I47.10 Supraventricular tachycardia, unspecified; E44.0 Moderate protein-calorie malnutrition; N39.0 Urinary tract infection, site not specified; I10 Essential (primary) hypertension; F41.9 Anxiety disorder, unspecified; E78.5 Hyperlipidemia, unspecified; R73.02 Impaired glucose tolerance (oral); G62.9 Polyneuropathy, unspecified; M85.80 Other specified disorders of bone density and structure, unspecified site; M19.90 Unspecified osteoarthritis, unspecified site; K59.00 Constipation, unspecified; G25.81 Restless legs syndrome; G47.00 Insomnia, unspecified; Z68.28 Body mass index [BMI] 28.0-28.9, adult
CPT/HCPCS: 36415; 80048; 81001; 82040; 83735; 84134; 85025; 87077; 87086; 87088; 87186; 93005; 97110; 97116; 97163; 97165; 97530; 97542; J2003; J3420